=== PATIENT | male | born 1930 | race Caucasian/White ===

== ENCOUNTER 2017-05-23 04:34 | Inpatient (IN) | payer OTHER ==
[2017-05-23] MEDS ORDERED: NS 1,000 ML IV ONE (05:12)
--- NOTE | 2017-05-23 05:21 | EDPHY ---
H & P Stated Complaint: c/o generalized abd cramping x 1 day, states constipated x 3 days Time Seen by Provider: 05/23/17 05:05 HPI/ROS: HPI The patient presents with abdominal pain for the last 3 days which has been intermittent though is getting progressively worse. It is described as a diffuse cramping sensation that occurs in waves. He has been unable to sleep last night because of the pain and comes in this morning. He is constipated with no bowel movement in the last 3 days though he usually moves his bowels daily. He has had nausea and belching as well. He has not had a fever. In 1973 he had a colectomy for diverticulitis.. REVIEW OF SYSTEMS Constitutional: No fever, no chills. Eyes: No discharge. ENT: No sore throat. Cardiovascular: No chest pain, no palpitations. Respiratory: No cough, no shortness of breath. Gastrointestinal: See HPI Genitourinary: No hematuria. Musculoskeletal: No back pain. Skin: No rashes. Neurological: No headache. PMHx: History of colectomy for diverticulitis, prostate cancer PHYSICAL General Appearance: Alert, no distress Eyes: Pupils equal and round no pallor or injection ENT, Mouth: Mucous membranes moist Respiratory: There are no retractions, lungs are clear to auscultation Cardiovascular: Regular rate and rhythm Gastrointestinal: Abdomen is distended with diffuse tenderness to palpation with guarding Neurological: A&O, moves all extremities Skin: Warm and dry, no rashes Musculoskeletal: Neck is supple non tender Extremities: symmetrical, full range of motion Psychiatric: Patient is oriented X 3, there is no agitation Source: Patient Exam Limitations: No limitations - Medical/Surgical History Hx Asthma: No Hx Chronic Respiratory Disease: No Hx Diabetes: No Hx Cardiac Disease: Yes Hx Renal Disease: No Hx Cirrhosis: No Hx Alcoholism: Yes Hx HIV/AIDS: No Hx Splenectomy or Spleen Trauma: No Other PMH: medical Heart block and HTN, diverticulitis, depression, gout, afib , hyperlipidemia. prostate CA. surgery Pacemaker - Social History Smoking Status: Former smoker Constitutional: Initial Vital Signs Temperature (C) 36.3 C 05/23/17 04:50 Heart Rate 62 05/23/17 04:50 Respiratory Rate 16 05/23/17 04:50 Blood Pressure 141/77 H 05/23/17 04:50 O2 Sat (%) 92 05/23/17 04:50 O2 Delivery Mode Room Air Allergies/Adverse Reactions: cephalexin monohydrate [From Keflex] Allergy (Intermediate, Verified 05/23/17 04 :57) inflammed joints Home Medications: Medication Instructions Recorded Aspirin [Aspirin 81mg (OTC)] 81 mg PO DAILY 11/03/12 Citalopram [CeleXA 20 MG] 20 mg PO DAILY 11/03/12 Simvastatin [Zocor 10 mg (RX)] 0 mg PO DAILY18 11/03/12 traZODone [traZODONE 100MG (RX)] 100 mg PO HS 11/03/12 Albuterol [Proventil Inhaler HFA 2 puffs IH Q4 PRN #1 mdi 12/24/12 (*)] Lisinopril [Zestril 40 mg (RX)] 40 mg PO DAILY 12/24/12 Allopurinol [Allopurinol 100 MG 100 mg PO DAILY 06/30/14 (RX)] Dutasteride [Avodart 0.5 MG (*)] 06/30/14 Mesalamine [MESALAMINE] 4 gm RC DAILY 06/30/14 Oxybutynin Chloride Xl [Ditropan 5 mg PO DAILY 06/09/16 Xl 5mg (*)] Tamsulosin HCl [Flomax 0.4 MG (*)] 0.4 mg PO 06/09/16 buPROPion [Wellbutrin 100mg (*)] 100 mg PO TID 06/09/16 levOFLOXACIN [levAQUIN (*)] 750 mg PO DAILY #10 tab 06/09/16 Medical Decision Making - Diagnostics Imaging Results: CT abdomen pelvis with IV contrast demonstrates partial small-bowel obstruction with transition point in the left lower quadrant which could represent ileitis verses an adhesion, small amount of free fluid, discussed with Dr. Guillen of Radiology. Imaging: Discussed imaging studies w/ hot box spotter Radiologist Differential Diagnosis: This is an 87-year-old male with history of diverticulitis, prostate cancer, atrial fibrillation who presents from home with 3 days of crampy abdominal pain associated with constipation. On exam, he is quite tender and distended. Differential diagnosis includes small bowel obstruction, constipation, perforated viscus. In the emergency room, IV line was established and patient was given fluids for presumed volume depletion. Labs were checked and were relatively unremarkable. He was given morphine for pain with good result. CT scan abdomen pelvis with IV contrast demonstrates partial small-bowel obstruction. The case was discussed with Dr. Bridges of General surgery. He requested an 18 Ethiop[place] NG tube be placed and he will see the patient with likely admission for observation. - Data Points Laboratory Results: Laboratory Results 05/23/17 05:24 05/23/17 05:24 05/23/17 05/23/17 05/23/17 05:24 05:24 05:24 WBC 8.11 10^3/uL 10^3/uL (3.80-9.50) RBC 4.94 10^6/uL 10^6/uL (4.40-6.38) Hgb 15.3 g/dL g/dL (13.7-17.5) POC Hgb Hct 45.8 % % (40.0-51.0) POC Hct MCV 92.7 fL fL (81.5-99.8) MCH 31.0 pg pg (27.9-34.1) MCHC 33.4 g/dL g/dL (32.4-36.7) RDW 13.2 % % (11.5-15.2) Plt Count 239 10^3/uL 10^3/uL (150-400) MPV 9.0 fL fL (8.7-11.7) Neut % (Auto) 88.7 % H % (39.3-74.2) Lymph % (Auto) 6.2 % L % (15.0-45.0) [place] % (Auto) 4.6 % % (4.5-13.0) Eos % (Auto) 0.2 % L % (0.6-7.6) Baso % (Auto) 0.1 % L % (0.3-1.7) Nucleat RBC Rel Count 0.0 % % (0.0-0.2) Absolute Neuts (auto) 7.19 10^3/uL H 10^3/uL (1.70-6.50) Absolute Lymphs (auto) 0.50 10^3/uL L 10^3/uL (1.00-3.00) Absolute Monos (auto) 0.37 10^3/uL 10^3/uL (0.30-0.80) Absolute Eos (auto) 0.02 10^3/uL L 10^3/uL (0.03-0.40) Absolute Basos (auto) 0.01 10^3/uL L 10^3/uL (0.02-0.10) Absolute Nucleated RBC 0.00 10^3/uL 10^3/uL (0-0.01) Immature Gran % 0.2 % % (0.0-1.1) Immature Gran # 0.02 10^3/uL 10^3/uL (0.00-0.10) VBG Lactic Acid 1.4 mmol/L mmol/L (0.7-2.1) POC Sodium Sodium 138 mEq/L mEq/L (134-144) POC Potassium Potassium 4.7 mEq/L mEq/L (3.5-5.2) POC Chloride Chloride 102 mEq/L mEq/L (97-110) Carbon Dioxide 24 mEq/l mEq/l (22-31) Anion Gap 12 mEq/L mEq/L (8-16) POC BUN BUN 14 mg/dL mg/dL (7-23) Creatinine 1.0 mg/dL mg/dL (0.7-1.3) POC Creatinine Estimated GFR > 60 Glucose 202 mg/dL H mg/dL (70-100) POC Glucose Calcium 9.6 mg/dL mg/dL (8.5-10.4) Total Bilirubin 1.5 mg/dL H mg/dL (0.1-1.4) Conjugated Bilirubin 0.3 mg/dL mg/dL (0.0-0.5) Unconjugated Bilirubin 1.2 mg/dL H mg/dL (0.0-1.1) AST 19 IU/L IU/L (17-59) ALT 34 IU/L IU/L (21-72) Alkaline Phosphatase 61 IU/L IU/L (38-126) Total Protein 6.8 g/dL g/dL (6.3-8.2) Albumin 4.1 g/dL g/dL (3.5-5.0) Lipase 26.0 IU/L IU/L (23-300) 05/23/17 05:20 WBC RBC Hgb POC Hgb 16.3 gm/dL gm/dL (13.7-17.5) Hct POC Hct 48 % % (40-51) MCV MCH MCHC RDW Plt Count MPV Neut % (Auto) Lymph % (Auto) [place] % (Auto) Eos % (Auto) Baso % (Auto) Nucleat RBC Rel Count Absolute Neuts (auto) Absolute Lymphs (auto) Absolute Monos (auto) Absolute Eos (auto) Absolute Basos (auto) Absolute Nucleated RBC Immature Gran % Immature Gran # VBG Lactic Acid POC Sodium 139 mEq/L mEq/L (134-144) Sodium POC Potassium 4.4 mEq/L mEq/L (3.3-5.0) Potassium POC Chloride 97 mEq/L mEq/L (97-110) Chloride Carbon Dioxide Anion Gap POC BUN 14 mg/dL mg/dL (7-23) BUN Creatinine POC Creatinine 1.1 mg/dL mg/dL (0.7-1.3) Estimated GFR Glucose POC Glucose 205 mg/dL H mg/dL (70-100) Calcium Total Bilirubin Conjugated Bilirubin Unconjugated Bilirubin AST ALT Alkaline Phosphatase Total Protein Albumin Lipase Medications Given: Discontinued Medications Sodium Chloride (Ns) 1,000 mls @ 0 mls/hr IV ONCE ONE; Wide Open PRN Reason: Protocol Stop: 05/23/17 05:13 Last Admin: 05/23/17 05:25 Dose: 1,000 mls Morphine Sulfate (Morphine) 4 mg IVP EDNOW ONE Stop: 05/23/17 05:57 Last Admin: 05/23/17 06:21 Dose: 4 mg Point of Care Test Results: 05/23/17 05:20 POC Sodium 139 POC Potassium 4.4 POC Chloride 97 POC BUN 14 POC Creatinine 1.1 POC Glucose 205 H Departure - Departure Disposition: [facility] Inpatient Acute Clinical Impression: Partial small bowel obstruction Abdominal pain Qualifiers: Abdominal location: generalized Qualified Code(s): R10.84 - Generalized abdominal pain Condition: Fair Referrals: SHERRI CARBAJAL [Primary Care Provider] - As per Instructions
[2017-05-23 05:36] LABS: % IMMATURE GRANULYOCYTES 0.2 % (0.0-1.1); ABSOLUTE IMMATURE GRANULOCYTES 0.02 10^3/uL (0.00-0.10); ADD DIFF? NO; ADD MORPH? NO; ADD SCAN? NO; ATYPICAL LYMPHOCYTE FLAG 0 (0-99); FRAGMENT RBC FLAG 0 (0-99); HEMATOCRIT 45.8 % (40.0-51.0); HEMOGLOBIN 15.3 g/dL (13.7-17.5); LEFT SHIFT FLG 0 (0-99); LIPEMIA HEMOLYSIS FLAG 80 (0-99); MEAN CELL HEMOGLOBIN CONCENTR. 33.4 g/dL (32.4-36.7); MEAN CELL VOLUME 92.7 fL (81.5-99.8); PLATELET CLUMPS FLAG 0 (0-99); PLATELET COUNT 239 10^3/uL (150-400); RED BLOOD CELL COUNT 4.94 10^6/uL (4.40-6.38); RED CELL DISTRIBUTION WIDTH 13.2 % (11.5-15.2)
[2017-05-23] MEDS ORDERED: IOPAMIDOL (ISOVUE-300) 100 ML BTL ONE (05:51)
[2017-05-23 05:55] LABS: ALANINE AMINOTRANSFERASE 34 IU/L (21-72); ALBUMIN 4.1 g/dL (3.5-5.0); ALKALINE PHOSPHATASE 61 IU/L (38-126); ANION GAP 12 mEq/L (8-16); ASPARTATE AMINOTRANSFERASE 19 IU/L (17-59); BILIRUBIN,TOTAL 1.5 mg/dL (0.1-1.4); BILIRUBIN-CONJUGATED 0.3 mg/dL (0.0-0.5); BILIRUBIN-UNCONJUGATED 1.2 mg/dL (0.0-1.1); CALCIUM 9.6 mg/dL (8.5-10.4); CARBON DIOXIDE 24 mEq/l (22-31); CHLORIDE 102 mEq/L (97-110); GLOMERULAR FILTRATION RATE > 60; GLUCOSE 202 mg/dL (70-100); POTASSIUM 4.7 mEq/L (3.5-5.2); SODIUM 138 mEq/L (134-144); TOTAL PROTEIN 6.8 g/dL (6.3-8.2)
[2017-05-23] MEDS ORDERED: HYDROmorphONE/DILAUDID 2 MG/ML INJ IVP PRN (07:52)
--- NOTE | 2017-05-23 08:19 | GCON ---
[f rep st] CONSULTATION DATE OF CONSULTATION: 05/23/2017 REFERRING PHYSICIAN: Pattie Moe MD REASON FOR EVALUATION: Small bowel obstruction. HISTORY OF PRESENT ILLNESS: 87-year-old male, remote history of a partial colectomy in 1973, recurrent diverticulitis presents to the emergency room this morning with 3-day history of diffuse crampy abdominal pain. His last bowel movement was approximately 2-3 days ago. He has not had flatus in this time. He reports nausea without emesis. He has had no prior obstructive concerns. He denies fevers or chills. PAST MEDICAL HISTORY: Heart block, hypertension, gout, atrial fibrillation, prostate cancer. PAST SURGICAL HISTORY: Pacemaker placement, partial colectomy, radiation therapy for prostate cancer. MEDICATIONS: Bupropion, clonazepam, dexamethasone, tamsulosin, Eliquis, allopurinol, clotrimazole, fluticasone, hydrochlorothiazide, simvastatin, albuterol. ALLERGIES: No known drug allergies. SOCIAL HISTORY: No alcohol. No tobacco. 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 FAMILY HISTORY: Noncontributory. REVIEW OF SYSTEMS: Notable for current GI complaints. Otherwise negative 10- point review. PHYSICAL EXAMINATION: VITAL SIGNS: Temperature 36, blood pressure 130/65, pulse 73, respirations 18. GENERAL: Patient is alert, appropriate, comfortable. HEENT: Anicteric. NECK: No cervical or supraclavicular lymphadenopathy. HEART: Irregular. LUNGS: Clear. ABDOMEN: Soft, distended , minimal tenderness. Well-healed long midline laparotomy without ventral hernias. EXTREMITIES: Unremarkable. NEUROLOGIC: Unremarkable. LABORATORY: White count 8, hemoglobin 15, platelets of 240. Electrolytes within reference range. Glucose 200. Total bilirubin 1.5. Unconjugated fraction 1.2. IMAGING: CT of the abdomen and pelvis, images were directly reviewed on PAX, markedly dilated proximal small bowel with transition zone in the left lower quadrant. No free fluid. No free air. No significant bowel wall thickening. IMPRESSION: Partial small bowel obstruction. PLAN: 1. Nasogastric tube has been placed. 2. Continue IV fluids and bowel rest. 3. If no clinical resolution within 72 hours or clinical deterioration in the interim time, consideration for a laparoscopic lysis of adhesions will be entertained at that time. 4. Eliquis will be withheld. The patient will be maintained on Lovenox temporarily. /[id number]/MODL MTDD
[2017-05-23] MEDS: D5W 1/2 NS W/ 20 KCl/L 1,000 ML IV SCH ×2 (09:01→16:35)
[2017-05-23] MEDS: ENOXAPARIN 60 MG/0.6 ML SYR SC SCH ×2 (09:30→20:42)
[2017-05-23 09:57] LABS: COLOR AMBER; LEUKOCYTE ESTERASE,URINE NEGATIVE (NEGATIVE); NITRITE,URINE NEGATIVE (NEGATIVE)
--- NOTE | 2017-05-23 10:17 | CPEKG ---
Heart Rate: 62 RR Interval: 968 P-R Interval: 169 QRSD Interval: 160 QT Interval: 464 QTC Interval: 472 P [place]: 0 QRS [place]: -88 T Wave [place]: 79 EKG Severity - ABNORMAL ECG - EKG Impression: ATRIAL-VENTRICULAR DUAL-PACED COMPLEXES Electronically Signed By: Eric Tidwell 23-May-2017 16:39:42
[2017-05-23] MEDS: clonazePAM 0.5 MG TAB PO SCH ×2 (13:03→20:28)
[2017-05-23] MEDS: HYDROmorphONE/DILAUDID 1 MG/ML SYR IVP PRN ×2 (15:22→20:41)
[2017-05-23] MEDS: traZODone 100 MG TAB PO SCH ×2 (20:56→22:43)
[2017-05-24] MEDS: D5W 1/2 NS W/ 20 KCl/L 1,000 ML IV SCH ×2 (00:52→09:38)
[2017-05-24] MEDS: ONDANSETRON 4 MG/2 ML VIAL IVP PRN ×2 (00:52→04:52)
[2017-05-24] MEDS: HYDROmorphONE/DILAUDID 1 MG/ML SYR IVP PRN ×4 (04:51→18:43)
[2017-05-24 06:25] LABS: ANION GAP 8 mEq/L (8-16); CALCIUM 8.5 mg/dL (8.5-10.4); CARBON DIOXIDE 25 mEq/l (22-31); CHLORIDE 105 mEq/L (97-110); CREATININE 0.8 mg/dL (0.7-1.3); GLOMERULAR FILTRATION RATE > 60; GLUCOSE 139 mg/dL (70-100); POTASSIUM 4.7 mEq/L (3.5-5.2); SODIUM 138 mEq/L (134-144)
--- NOTE | 2017-05-24 07:44 | SOAPPROG ---
SOAP Progress Note Assessment/Plan: Assessment:no new issues. crampy pain. no flatus. avss. comfortable. abd dist. NG gastric. kub persist psbo. cont ng suction today. if no improvement by tomorrow, will need lap mone. Plan: 05/24/17 07:43 Objective: Vital Signs Temp Pulse Resp BP Pulse Ox 37.1 C 66 16 129/62 H 94 05/24/17 07:19 05/24/17 07:19 05/24/17 07:19 05/24/17 07:19 05/24/17 07:19 Laboratory Results 05/24/17 05:46 05/23/17 05/24/17 05/25/17 05:59 05:59 05:59 Intake Total 2710 Output Total 1650 Balance 1060 ICD10 Worksheet Patient Problems: Problems Problem Status Onset Abdominal pain Acute Partial small bowel obstruction Acute
[2017-05-24] MEDS: ENOXAPARIN 60 MG/0.6 ML SYR SC SCH ×2 (09:21→21:10)
[2017-05-24] MEDS: clonazePAM 0.5 MG TAB PO SCH ×3 (09:25→18:28)
[2017-05-24] MEDS: TAMSULOSIN HCL 0.4 MG CAP PO SCH (09:27)
[2017-05-24] MEDS: LISINOPRIL 40 MG TAB PO SCH (09:27)
[2017-05-24] MEDS: traZODone 100 MG TAB PO SCH (21:10)
[2017-05-25] MEDS: HYDROmorphONE/DILAUDID 1 MG/ML SYR IVP PRN ×5 (01:25→22:30)
[2017-05-25] MEDS: D5W 1/2 NS W/ 20 KCl/L 1,000 ML IV SCH ×3 (01:25→19:53)
[2017-05-25] MEDS: TAMSULOSIN HCL 0.4 MG CAP PO SCH (08:52)
[2017-05-25] MEDS: LISINOPRIL 40 MG TAB PO SCH (08:52)
[2017-05-25] MEDS: clonazePAM 0.5 MG TAB PO SCH ×3 (08:52→19:54)
[2017-05-25] MEDS: ENOXAPARIN 60 MG/0.6 ML SYR SC SCH ×2 (08:53→19:53)
[2017-05-25] MEDS ORDERED: LIDOCAINE 1% 300 MG/30 ML SDV ONE (10:54)
[2017-05-25] MEDS ORDERED: BUPIVACAINE 0.5% 30 ML SDV ONE (10:54)
[2017-05-25] MEDS ORDERED: LR 1,000 ML IV ONE (12:38)
--- NOTE | 2017-05-25 13:21 | PDANEPAE ---
ANE History of Present Illness sbo ANE Past Medical History Past Medical History: 3rd degree heart block - Cardiovascular History Hx Hypertension: No Hx Arrhythmias: Yes - Pulmonary History Hx Oxygen in Use at Home: No O2 in Use at Home (L/minute): cpap Hx Sleep Apnea: Yes Sleep Apnea Screening Result - Last Documented: Positive - Endocrine History Hx Diabetes: No - Cancer History Hx Cancer: Yes Cancer History Comment: prostate ca-treated - Chronic Pain History Chronic Pain: No ANE Review of Systems - Exercise capacity Exercise capacity: <4 METS - Systems Muscolosketal: Reports: gout - Pacemaker Pacemaker Type: Permanent Pacer/Defib (pacer for complete HB) Pacemaker Market Reporter: Medtronic Pacemaker Model: [id number] ANE Patient History - Allergies Allergies/Adverse Reactions: cephalexin monohydrate [From Keflex] Allergy (Intermediate, Verified 05/23/17 04 :57) inflammed joints - Home Medications Home medications: home medication list seen and reviewed Home Medications: traZODone [traZODONE 100MG (RX)] 200 mg PO HS 11/03/12 [Last Taken 05/22/17] Dutasteride [Avodart 0.5 MG (*)] 0.5 mg PO HS 06/30/14 [Last Taken 05/22/17] Tamsulosin HCl [Flomax 0.4 MG (*)] 0.4 mg PO DAILY 06/09/16 [Last Taken 05/22/17 ] buPROPion [Wellbutrin 100mg (*)] 100 mg PO TID@08,,17 06/09/16 [Last Taken 03/05 17:00] Allopurinol [Allopurinol 100 MG (*)] 100 mg PO DAILY 05/23/17 [Last Taken Unknown] Apixaban [Eliquis] 5 mg PO BID 05/23/17 [Last Taken Unknown] Asacol Ec 400mg Cap 400 mg PO TID PRN 05/23/17 [Last Taken Unknown] Clotrimazole 1% [Lotrimin 1%] 1 sultana TP BID 05/23/17 [Last Taken Unknown] Fluticasone Nasal [Flonase Nasal [place] (RX)] 2 sprays NASAL DAILY 05/23/17 [ Last Taken Unknown] Mirabegron [Myrbetriq] 25 mg PO DAILY 05/23/17 [Last Taken Unknown] Psyllium Husk (with Sugar) [Metamucil Packet] 1 each PO DAILY 05/23/17 [Last Taken Unknown] Simvastatin [Zocor] 40 mg PO HS 05/23/17 [Last Taken 05/22/17] Sodium Cl Nasal [Lynn [place] (*)] 1 spray NS Q2HRS 05/23/17 [Last Taken Unknown] Vanicream [Vanicream (*)] 1 sultana TP DAILY 05/23/17 [Last Taken Unknown] clonazePAM [Klonopin (*)] 0.5 mg PO TID@08,,05/23/17 [Last Taken 05/22/17 17:00] - NPO status NPO Since - Liquids (Date): 05/25/17 NPO Since - Liquids (Time): 10:00 NPO Since - Solids (Date): 05/23/17 NPO Since - Solids (Time): 09:00 - Anes Hx Anes Hx: no prior problems - Smoking Hx Smoking Status: Former smoker Marijuana use: No - Alcohol Use Alcohol Use: Sober - Family Anes Hx Family Anes Hx: none ANE Labs/Vital Signs - Labs Result Diagrams: 05/23/17 05:24 05/24/17 05:46 - Vital Signs Blood Pressure: 153/73 Heart Rate: 83 Respiratory Rate: 12 O2 Sat (%): 92 Height: 182.88 cm Weight: 96.8 kg ANE Physical Exam - Airway Neck exam: decreased ROM Mallampati Score: Class 2 Mouth exam: poor dentition - Pulmonary Pulmonary: inspiratory crackles - Cardiovascular Cardiovascular: regular rate and rhythym - ASA Status ASA Status: III ANE Anesthesia Plan Anesthesia Plan: general endotracheal anesthesia (pacer check pending then will start)
--- NOTE | 2017-05-25 13:42 | SOAPPROG ---
SOAP Progress Note Assessment/Plan: Assessment/Plan: No bowel activity AXR worsening To OR for laparoscopic lysis of adhesions possible laparotomy see consent 05/25/17 13:41 Objective: Vital Signs Temp Pulse Resp BP Pulse Ox 37.0 C 83 12 153/73 H 92 05/25/17 12:50 05/25/17 13:22 05/25/17 13:22 05/25/17 13:22 05/25/17 13:22 05/24/17 05/25/17 05/26/17 05:59 05:59 05:59 Output Total 775 50 Balance -775 -50 ICD10 Worksheet Patient Problems: Problems Problem Status Onset Abdominal pain Acute Partial small bowel obstruction Acute
[2017-05-25] MEDS ORDERED: ROCURONIUM 50 MG/5 ML VIAL ONE ×2 (13:53→15:45)
[2017-05-25] MEDS ORDERED: fentaNYL 100 MCG/2 ML INJ ONE ×3 (13:53→17:01)
[2017-05-25] MEDS ORDERED: PROPOFOL/EMULSION 500 MG/50 ML BOTTLE IV ONE ×2 (13:53→15:18)
[2017-05-25] MEDS ORDERED: ONDANSETRON 4 MG/2 ML VIAL ONE (13:53)
[2017-05-25] MEDS ORDERED: DEXAMETHASONE 4 MG/ML VIAL ONE ×2 (13:53)
[2017-05-25] MEDS ORDERED: LIDOCAINE 2% 5 ML SDV ONE (13:55)
[2017-05-25] MEDS ORDERED: SUGAMMADEX SODIUM 200 MG/2 ML VIAL IVP ONE (16:14)
--- NOTE | 2017-05-25 16:20 | POSTOPPROG ---
Post Op Note Date of Operation: 05/25/17 Surgeon: Nate Bonilla Claims Configuration Analyst: none Anesthesiologist: Danny Anesthesia: GET(General Endotracheal) Pre-op Diagnosis: sbo Post-op Diagnosis: same Procedure: lap lysis of adhesions, repair of enterotomy Inf/Abcess present in the surg proc area at time of surgery?: Yes Depth: Organ Space EBL: Minimal Complications: none Specimen(s): none
[2017-05-25] MEDS ORDERED: NALOXONE HCL 0.4 MG/ML INJ IVP PRN (16:32)
[2017-05-25] MEDS ORDERED: HYDROCODONE/APAP 5/325 TAB PO PRN (16:32)
[2017-05-25] MEDS ORDERED: LR 500 ML IV PRN (16:32)
[2017-05-25] MEDS ORDERED: ONDANSETRON 4 MG/2 ML VIAL IVP PRN (16:32)
[2017-05-25] MEDS ORDERED: fentaNYL 100 MCG/2 ML INJ IVP PRN (16:32)
[2017-05-25] MEDS ORDERED: METOCLOPRAMIDE 10 MG/2 ML VIAL IVP PRN (16:32)
[2017-05-25] MEDS ORDERED: OXYCODONE/APAP 5/325 TAB PO PRN (16:32)
[2017-05-25] MEDS ORDERED: PROMETHAZINE HCL 25 MG/ML INJ IVP PRN (16:32)
[2017-05-25] MEDS ORDERED: LABETALOL HCL 50 MG/10 ML SYR IVP PRN (16:32)
[2017-05-25] MEDS ORDERED: MEPERIDINE 25 MG/ML SYR IVP PRN (16:32)
[2017-05-25] MEDS ORDERED: ACETAMINOPHEN 500 MG TAB PO PRN (16:32)
[2017-05-25] MEDS ORDERED: DEXAMETHASONE 4 MG/ML VIAL IVP PRN (16:32)
--- NOTE | 2017-05-25 16:32 | POSTANESTH ---
Post Anesthetic Evaluation Cardiovascular Status: Normal, Stable Respiratory Status: Similar to Pre-op Cond., Tx Decrease in SpO2 Level of Consciousness/Mental Status: Can Participate in Eval, Moderately Sleepy Pain Control: Inadeq, Add Tx Required Nausea/Vomiting Control: Adequate, Prn Tx Ordered Complications Possibly Related to Anesthesia: None Noted
[2017-05-25] MEDS: fentaNYL 100 MCG/2 ML INJ IVP PRN ×4 (16:35→17:10)
[2017-05-25] MEDS ORDERED: DIAZEPAM 10 MG/2 ML SYR ONE (17:37)
[2017-05-25] MEDS ORDERED: DIAZEPAM 10 MG/2 ML SYR IVP ONE (17:45)
[2017-05-25] MEDS: ONDANSETRON 4 MG/2 ML VIAL IVP PRN (19:53)
[2017-05-25] MEDS: traZODone 100 MG TAB PO SCH (21:32)
[2017-05-26] MEDS: HYDROmorphONE/DILAUDID 1 MG/ML SYR IVP PRN ×5 (01:36→22:11)
[2017-05-26 05:59] LABS: % IMMATURE GRANULYOCYTES 0.4 % (0.0-1.1); ABSOLUTE IMMATURE GRANULOCYTES 0.02 10^3/uL (0.00-0.10); ABSOLUTE NRBC COUNT 0.02 10^3/uL (0-0.01); ADD DIFF? NO; ADD MORPH? NO; ADD SCAN? YES; ATYPICAL LYMPHOCYTE FLAG 0 (0-99); FRAGMENT RBC FLAG 0 (0-99); HEMATOCRIT 45.4 % (40.0-51.0); HEMOGLOBIN 14.8 g/dL (13.7-17.5); LIPEMIA HEMOLYSIS FLAG 80 (0-99); MEAN CELL HEMOGLOBIN 31.2 pg (27.9-34.1); MEAN CELL HEMOGLOBIN CONCENTR. 32.6 g/dL (32.4-36.7); MEAN CELL VOLUME 95.8 fL (81.5-99.8); MEAN PLATELET VOLUME 9.5 fL (8.7-11.7); NRBC-AUTO% 0.4 % (0.0-0.2); PLATELET CLUMPS FLAG 0 (0-99); PLATELET COUNT 232 10^3/uL (150-400); RED BLOOD CELL COUNT 4.74 10^6/uL (4.40-6.38); RED CELL DISTRIBUTION WIDTH 13.4 % (11.5-15.2)
[2017-05-26 06:01] LABS: ANION GAP 13 mEq/L (8-16); CALCIUM 8.2 mg/dL (8.5-10.4); CARBON DIOXIDE 18 mEq/l (22-31); CHLORIDE 108 mEq/L (97-110); CREATININE 2.3 mg/dL (0.7-1.3); GLOMERULAR FILTRATION RATE 27; GLUCOSE 131 mg/dL (70-100); POTASSIUM 4.6 mEq/L (3.5-5.2); SODIUM 139 mEq/L (134-144)
[2017-05-26 06:03] LABS: LEFT SHIFT FLG 300 (0-99)
[2017-05-26 06:25] LABS: SCAN POSITIVE
[2017-05-26] MEDS ORDERED: NS 500 ML IV ONE (06:47)
[2017-05-26 06:50] LABS: ECHINOCYTES 1+; PLATELET ESTIMATE ADEQUATE (ADEQ); POLYCHROMASIA 1+; TOXIC VACUOLIZATION PRESENT
[2017-05-26] MEDS ORDERED: ALBUTEROL 3 ML DEYVIAL IH PRN (06:51)
--- NOTE | 2017-05-26 06:56 | SOAPPROG ---
SOAP Progress Note Assessment/Plan: Assessment/Plan: Hypoxia with new requirement 15 L NRB No chest pain Abd pain better CXR poor inspiratory effort WBC 5 Cr 2.3 300 ml urine output o/n 500ml bolus Resp therapy with nebs Monitor closely low threshold to move to sd/icu 05/25/17 13:41 05/26/17 06:53 Objective: Vital Signs Temp Pulse Resp BP Pulse Ox 37.2 C 63 154 H 96/45 L 92 05/26/17 04:00 05/26/17 04:00 05/26/17 04:00 05/26/17 04:00 05/26/17 04:00 Laboratory Results 05/26/17 05:30 05/26/17 05:30 05/25/17 05/26/17 05/27/17 05:59 05:59 05:59 Intake Total 1250 Output Total 775 350 Balance -775 900 ICD10 Worksheet Patient Problems: Problems Problem Status Onset Abdominal pain Acute Partial small bowel obstruction Acute
[2017-05-26 08:00] LABS: TROPONIN I 0.261 ng/mL (0-0.034)
[2017-05-26] MEDS: TAMSULOSIN HCL 0.4 MG CAP PO SCH (08:39)
[2017-05-26] MEDS: ENOXAPARIN 60 MG/0.6 ML SYR SC SCH (08:40)
[2017-05-26] MEDS: clonazePAM 0.5 MG TAB PO SCH ×3 (08:40→17:05)
--- NOTE | 2017-05-26 08:41 | SOAPPROG ---
SOAP Progress Note Assessment/Plan: Assessment/Plan: Hypoxia with new requirement 15 L NRB Confused Troponin 0.261 No chest pain Abd pain better CXR poor inspiratory effort WBC 5 Cr 2.3 300 ml urine output o/n Bladder scan 30 ml Rhonchorus RRR Abd soft NT No edema 500ml bolus given will repeat in 2 hr and repeat Cr in 6 hr Resp therapy with nebs Monitor closely low threshold to move to sd/icu 05/26/17 08:37 Objective: Vital Signs Temp Pulse Resp BP Pulse Ox 37.2 C 62 31 H 104/49 L 96 05/26/17 04:00 05/26/17 08:00 05/26/17 08:00 05/26/17 08:00 05/26/17 08:00 Laboratory Results 05/26/17 05:30 05/26/17 05:30 05/25/17 05/26/17 05/27/17 05:59 05:59 05:59 Intake Total 1250 Output Total 775 350 Balance -775 900 ICD10 Worksheet Patient Problems: Problems Problem Status Onset Abdominal pain Acute Partial small bowel obstruction Acute
--- NOTE | 2017-05-26 09:08 | CPEKG ---
Heart Rate: 62 RR Interval: 968 QRSD Interval: 140 QT Interval: 448 QTC Interval: 455 QRS Pace: -84 T Wave Pace: 70 EKG Severity - ABNORMAL ECG - EKG Impression: VENTRICULAR-PACED RHYTHM Electronically Signed By: Eric Tidwell 27-May-2017 23:02:21
[2017-05-26] MEDS ORDERED: NS 500 ML IV SCH (10:00)
[2017-05-26] MEDS: LISINOPRIL 40 MG TAB PO SCH (10:56)
[2017-05-26] MEDS ORDERED: ALBUMIN 25% 100 ML SOLN IV ONE ×2 (11:50→14:13)
[2017-05-26] MEDS ORDERED: ALTEPLASE 2 MG VIAL IVP PRN (11:53)
[2017-05-26] MEDS ORDERED: ALBUMIN 25% 100 ML IV ONE ×2 (11:53→15:00)
--- NOTE | 2017-05-26 12:54 | GCON ---
[f rep st] CONSULTATION CARDIOLOGY CONSULT DATE OF CONSULTATION: 05/26/2017 PRIMARY CARE DOCTOR: Unknown. PRIMARY ENTERPRISE SYSTEMS ENGINEER: ifeanyi Barnett at the [employer]. CHIEF COMPLAINT: Hypotension and positive troponin. HISTORY OF PRESENT ILLNESS: We were asked by Dr. Bonilla to visit with the patient. 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 He has a history of pacemaker for complete heart block, atrial fibrillation, for which he is on Eliquis as an outpatient, hypertension, and dyslipidemia. Per the patient and his family, he has no history of obstructive coronary disease and has never had an ID or stent placement. He was admitted on May 23 with abdominal pain. He was found to have a partial SBO that did not resp ond to medical management. Therefore, he was taken to the operating room on May [address] Bonilla a nd had lysis of adhesions and enterotomy repair. Postoperatively, he was persistently hypoxic and was transferred to PCU. This morning, he was found to be in acute renal failure with a creatinine of 2.3, up from 1.0 prior to surgery. He has also b een hypotensive and has been receiving IV fluids. Troponin is 0.2. He has been transferred to the ICU. Upon my evaluation, he reports no chest discomfort, but he does report ongoing abdominal pain. He does not say that he is dyspneic. Prior to his abdominal illnes s, he was not having problems with chest pain or dyspnea. His overall activity is limited by neurop athic problems in his feet, but he has not had exertional chest pain. ALLERGIES: Cephalexin. REVIEW OF SYSTEMS: A full 10-point review of systems is not performed as the patient is acutely ill . PAST MEDICAL HISTORY: 1. Pacemaker for complete heart block. 2. Atrial fibrillation. 3. Hypertension. 4. Dyslipidemia. 5. Prostate cancer, with history radiation. 6. BPH. 7. History of diverticulitis. 8. Gout. PAST SURGICAL HISTORY: Partial colectomy in 1973. OUTPATIENT MEDICATIONS: Allopurinol, Eliquis, Asacol, Wellbutrin, Klonopin, Lotrimin cream, dutaste ride, Flonase, Myrbetriq, psyllium, simvastatin, tamsulosin, Vanicream, trazodone. SOCIAL HISTORY: The patient has involved family at the bedside. He does not smoke cigarettes or dr ink significant amounts of alcohol. 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 FAMILY HISTORY: Not applicable to the current case. PHYSICAL EXAM: VITAL SIGNS: Blood pressure 77/47, heart rate 57. Respiratory rate is 28. Oxygen saturation 94% on 15 L OxyMask. He is afebrile. GENERAL: Slightly ill-appearing older male in no acute distress. He is mentating and answering questions appropriately. HEENT: Sclerae are clear a nd free of jaundice. Mucous membranes are dry. Normocephalic, atraumatic. CARDIOVASCULAR: JVP is less than 10. Carotids equal and 2+ throughout, without bruit. Regular rate and rhythm, without mu rmur, rub, or gallop. LUNGS: Poor inspiratory effort, occasional rhonchi. Occasional wheeze. No rales. ABDOMEN: Distended, with decreased bowel sounds. He is diffusely tender. He has 2 small l aparotomy incisions. There is redness extending from the left lower quadrant incision to his left f lank. EXTREMITIES: Warm and well perfused, without cyanosis, clubbing, or edema. NEURO: Alert an d oriented x3, without gross focal neurologic deficits. EKG shows underlying atrial fibrillation with ventricular pacing. Echocardiogram is pending. Chest x-ray reviewed by me: Subsegmental atelectasis. Tracheal deviation to the right. LABORATORY DATA: White count 5.69, hematocrit 45, platelets 232. He has a left shift. Sodium 139, potassium 4.6, chloride 108, bicarb 18, BUN 23, creatinine 2.3 from 0.8 on May 24, glucose 131, tro ponin 0.261, total bilirubin 1.5, conjugated bilirubin 0.3, unconjugated 1.2. AST, ALT, alkaline ph osphatase normal preoperatively. Lipase was normal preoperatively. ASSESSMENT AND PLAN: An 87-year-old male whose cardiac history includes atrial fibrillation and per manent pacemaker. He does not have a known history of coronary disease or heart failure. He is now postop day 1, status post lysis of adhesions for small-bowel obstruction. His course has been comp licated by hypoxia, hypotension, acute renal failure, and minimally elevated troponin. 1. Positive troponin: His current clinical picture is not consistent with acute coronary syndrome as a primary etiology for his hemodynamic instability. He is not having chest pain. He appears dry on exam. I think his troponin is likely demand ischemia. Agree with cycling troponin, fluid resus citation. Will review echocardiogram. No indication for urgent cardiac catheterization. Enoxapari n appears to be on hold. Will order aspirin. 2. Hypotension: This is likely volume depletion. He is being volume resuscitated and will get alb umin. We will make sure that he has not been on steroids at home. Sepsis is also on the differenti al. He is being followed carefully in the ICU. At this point, he is currently not on antibiotics. If pressors are required, consider dopamine. will be performed. 3. Hypoxia: Lung exam and chest x-ray are not significantly abnormal. This may be a combination o f poor inspiratory effort and atelectasis related to his abdominal process. Pulmonary embolism is o n the differential, but he was anticoagulated preoperatively initially with Eliquis and then with Lo venox. Does not appear to have pneumonia. May ultimately require intubation. Followed by Dr. Thalia agustin. Check BNP. 4. Atrial fibrillation: He has complete heart block and therefore is ventricularly paced. Restart anticoagulation when deemed feasible from a postsurgical standpoint. 5. Obtain records from [facility]. Thank you for allowing us to participate in the patient's care. Greater than 30 minutes was spent i n direct patient contact, discussion with other physicians, and discussion with the patient's family . /[id number]/MODL
[2017-05-26] MEDS ORDERED: NOREPINEPHRINE/NS 500 ML IV SCH (14:00)
[2017-05-26 14:38] LABS: ANION GAP 12 mEq/L (8-16); CALCIUM 7.5 mg/dL (8.5-10.4); CARBON DIOXIDE 20 mEq/l (22-31); CHLORIDE 107 mEq/L (97-110); CREATININE 3.1 mg/dL (0.7-1.3); GLOMERULAR FILTRATION RATE 19; GLUCOSE 132 mg/dL (70-100); POTASSIUM 5.3 mEq/L (3.5-5.2); SODIUM 139 mEq/L (134-144)
[2017-05-26 14:50] LABS: TROPONIN I 0.396 ng/mL (0-0.034)
[2017-05-26] MEDS: VASOPRESSIN/DEXTROSE 250 ML IV SCH ×2 (14:55→23:18)
[2017-05-26 15:11] LABS: BASE EXCESS -6.8 mEq/L (-2.5-2.5); BICARBONATE 18 mEq/L (22-26); MEASURED OXYGEN SATURATION 99 % (92-95); PCO2 34 mmHg (34-38); PO2 135 mmHg (65-75); TCO2 19 mEq/L (23-27)
[2017-05-26] MEDS: ASPIRIN 81 MG CHEWABLE TAB PO SCH (15:17)
[2017-05-26] MEDS: buPROPion 100 MG TAB PO SCH ×2 (15:17→17:05)
[2017-05-26 15:23] LABS: ATYPICAL LYMPHOCYTE FLAG 0 (0-99); FRAGMENT RBC FLAG 0 (0-99); HEMATOCRIT 35.3 % (40.0-51.0); HEMOGLOBIN 11.3 g/dL (13.7-17.5); LIPEMIA HEMOLYSIS FLAG 80 (0-99); MEAN CELL HEMOGLOBIN 31.6 pg (27.9-34.1); MEAN CELL VOLUME 98.6 fL (81.5-99.8); MEAN PLATELET VOLUME 9.6 fL (8.7-11.7); PLATELET CLUMPS FLAG 0 (0-99); PLATELET COUNT 192 10^3/uL (150-400); RED BLOOD CELL COUNT 3.58 10^6/uL (4.40-6.38); RED CELL DISTRIBUTION WIDTH 13.3 % (11.5-15.2)
[2017-05-26 15:24] LABS: LEFT SHIFT FLG 300 (0-99)
[2017-05-26 15:27] LABS: ADD DIFF? YES; ADD SCAN? NO
[2017-05-26] MEDS ORDERED: VANCOMYCIN 1.5 GM in D5W 250 ML IV ONE (15:30)
[2017-05-26] MEDS: SODIUM BICARBONATE 150 MEQ in D5W 1,000 ML IV SCH (15:44)
[2017-05-26 15:48] LABS: PLATELET ESTIMATE ADEQUATE (ADEQ)
--- NOTE | 2017-05-26 15:55 | GCON ---
[f rep st] CONSULTATION CRITICAL CARE CONSULT DATE OF CONSULTATION: 05/26/2017 HISTORY OF PRESENT ILLNESS: This patient is an 87-year-old male with multiple medical problems, who presented on the with abdominal pain. A CT scan showed a small-bowel obstruction, and he under went laparoscopic lysis of adhesions. The surgery itself was unremarkable, but he has subsequently developed hypotension for uncertain reasons. The patient denies any chest pain or shortness of james th. He has had no cough or palpitations, though he does have an extensive cardiac history. There w as no excess blood loss during the procedure, and his counts have been stable, except for his hypote nsion since that time. REVIEW OF SYSTEMS: Otherwise negative. PAST MEDICAL HISTORY: Includes PTSD, depression, anxiety, remote frostbite, peripheral neuropathy, complete heart block requiring a permanent pacer, atrial fibrillation, hyperlipidemia, hypothyroidis m, mediastinal goiter, obstructive sleep apnea, degenerative joint disease, remote history of alcoholism, prostate cancer status post cryosurgery on several occasions in the past. SURGICAL HISTORY: Includes hemicolectomy, permanent pacer placement, tonsillectomy, hernia repair, thyroid biopsy, and his recent surgery. FAMILY HISTORY: Includes diabetes. SOCIAL HISTORY: Includes remote smoking. No alcohol or IV drug use. CURRENT MEDICATIONS: Include Proventil, aspirin, Wellbutrin, Klonopin, Lovenox, Dilaudid, Zestril, Zofran, Flomax, trazodone. PHYSICAL EXAM: VITAL SIGNS: He was afebrile, but his heart rate was only 62, with a blood pressure 77/47, respirations of 28, but oxygen saturation 95% on 15 liter OxyMask. GENERAL: He was awake a nd alert, and answered questions appropriately, though, was not terribly verbose. HEENT: Pupils ar e equally round, reactive to light. Nonicteric and noninjected. Mucous membranes are moist without erythema or exudate. NECK: Supple without adenopathy or jugular vein distention. LUNGS: Breath sounds were clear to auscultation bilaterally, without wheezes, rubs or rales. HEART: Regular rate and rhythm without murmurs, rubs, gallops. ABDOMEN: Mildly tender, with areas of diffuse erythema particularly over to the left flank side. His incisions were somewhat erythematous, without obviou s discharge. EXTREMITIES: Show no clubbing, cyanosis, or edema. NEUROLOGICAL: Nonfocal. OBJECTIVE DATA: Includes a white count of 5.69, hematocrit of 45, platelets of 232. His most recen t labs show sodium 139, potassium 5.3, chloride 107, bicarb 20, BUN 30, creatinine 3.1, glucose 132. Troponin was 0.26, and now is 0.39. A BNP was 17,900. Urinalysis showed a high specific gravity, with ketones, but was otherwise negative. Chest x-ray showed no infiltrates or effusions. An EKG was unremarkable, as was an echocardiogram. ASSESSMENT/PLAN: 1. Hypotension of uncertain etiology. While the troponin is rising in the face of his renal failur e, the normal echo and EKG are fairly unremarkable, and seems an unlikely source. It may be that hi s pacemaker rate is too low and needs to be increased, but I will defer to Dr. Madrid from Cardiology for that assessment. 2. Possibility would be sepsis, although, he is afebrile with normal white count. We will recheck a CBC now, but I think in the short term we should give him vancomycin and Zosyn, as well as check a lactate and check some blood cultures. We could consider a CT scan if this persists. 3. Possibility for his hypotension is hypovolemia. He has gotten several liters of fluid, as well as albumin boluses, was done and he was not responsive, showing that he is probably adequ ately fluid resuscitated. Adrenal insufficiency seems highly unlikely in this patient, who has not been on chronic steroids and is not known to have a current adrenal hemorrhage. Spinal shock is als o highly unlikely given the history. 4. In either case, I think supporting him with Levophed and vasopressin at this time and checking t he other studies as mentioned above, would certainly be worth our while. 5. Hypoxemia. This is probably related to poor flow, an arterial blood gas is pending at this time , as well as a lactate. He did not have CPAP last night, though his serum bicarb is really not that low. In any case, the x-ray does not support pneumonia, aspiration or pulmonary edema at this time . He has previously been anticoagulated, including in the postoperative period, so I think that pul monary embolism is highly unlikely. 6. Acute kidney injury. This is likely due to his hypotension. We will start a bicarb drip right now and place a Webber catheter, and look at his urine electrolytes. He may need a renal consult in the very near future. I suspect a bicarb drip. We will address the slightly elevated potassium. A total of about 75 minutes of critical care time was required for this patient. /[id number]/MODL
[2017-05-26] MEDS: PIPERACILLIN/TAZO 2.25 GM/DEX 50 ML IV SCH ×3 (17:02→23:59)
[2017-05-26] MEDS ORDERED: PIPERACILLIN/TAZO 3.375 GM/DEX 50 ML IV SCH (18:00)
[2017-05-26] MEDS ORDERED: buPROPion SR 100 MG TAB PO SCH (21:00)
[2017-05-26] MEDS: traZODone 100 MG TAB PO SCH (21:02)
[2017-05-26 21:39] LABS: COLOR AMBER; LEUKOCYTE ESTERASE,URINE NEGATIVE (NEGATIVE); NITRITE,URINE NEGATIVE (NEGATIVE)
[2017-05-26 21:41] LABS: AMORPHOUS PRESENT /hpf (NONE-1+); BACTERIA 1+ /hpf (NONE SEEN); HYALINE CASTS 25-50 /lpf (0-1); MUCUS TRACE /lpf (NONE-1+)
[2017-05-26] MEDS: NOREPINEPHRINE BITARTRATE 4 MG in NS 500 ML IV SCH (23:18)
[2017-05-27] MEDS: HYDROmorphONE/DILAUDID 1 MG/ML SYR IVP PRN ×2 (01:11→05:31)
[2017-05-27] MEDS: PIPERACILLIN/TAZO 2.25 GM/DEX 50 ML IV SCH ×4 (05:28→23:13)
[2017-05-27] MEDS: NOREPINEPHRINE BITARTRATE 4 MG in NS 500 ML IV SCH ×3 (05:42→18:31)
[2017-05-27 06:08] LABS: BASE EXCESS -3.1 mEq/L (-2.5-2.5); BICARBONATE 21 mEq/L (22-26); MEASURED OXYGEN SATURATION 98 % (92-95); PCO2 36 mmHg (34-38); PO2 96 mmHg (65-75); TCO2 22 mEq/L (23-27)
[2017-05-27 06:13] LABS: ALANINE AMINOTRANSFERASE 29 IU/L (21-72); ALBUMIN 2.2 g/dL (3.5-5.0); ALKALINE PHOSPHATASE 26 IU/L (38-126); ANION GAP 11 mEq/L (8-16); ASPARTATE AMINOTRANSFERASE 25 IU/L (17-59); BILIRUBIN,TOTAL 3.7 mg/dL (0.1-1.4); CARBON DIOXIDE 28 mEq/l (22-31); CHLORIDE 97 mEq/L (97-110); CREATININE 2.6 mg/dL (0.7-1.3); GLOMERULAR FILTRATION RATE 23; GLUCOSE 463 mg/dL (70-100); POTASSIUM 4.4 mEq/L (3.5-5.2); SODIUM 136 mEq/L (134-144)
[2017-05-27 06:33] LABS: BILIRUBIN-CONJUGATED 2.7 mg/dL (0.0-0.5)
[2017-05-27] MEDS: clonazePAM 0.5 MG TAB PO SCH ×3 (08:29→17:13)
[2017-05-27] MEDS: buPROPion 100 MG TAB PO SCH ×3 (08:29→17:13)
[2017-05-27] MEDS: ASPIRIN 81 MG CHEWABLE TAB PO SCH ×2 (08:30→11:08)
[2017-05-27] MEDS: TAMSULOSIN HCL 0.4 MG CAP PO SCH (08:30)
--- NOTE | 2017-05-27 08:35 | SOAPPROG ---
SOAP Progress Note Assessment/Plan: Assessment/Plan: 87-year-old gentleman postop day 2. Status post laparoscopic lysis of adhesions with repair of enterotomy. The patient became confused postoperatively and then went into oliguric renal failure and subsequently became hypotensive. He responded to vasopressor medication and fluid hydration. He is left acidotic his confusion has abated. Tolerating maps in the 60-65 range for blood pressure. Alert oriented Regular rate and rhythm paced rhythm on EKG strip Clear to auscultation on the left bronchus on the right Abdomen soft distended NG tube replaced with 600 cc out last night. Patient has minimal erythema around incisions likely irritation as opposed infection. Left flank edematous. Impression/plan: Postoperative renal failure no evidence of cardiac compromise. Oxygen requirements decreasing. Would continue to monitor in the ICU today creatinine down to 2.6 from 3.1 yesterday. Continue fluid hydration. Antibiotics started empirically for possible septic picture would continue them until objective evidence suggests we should discontinue or streamline. Discussed with the patient and care team. Webber catheter for precise measurement of urinary output may have clear liquid diet around NG tube for now 05/26/17 08:37 05/27/17 08:31 Objective: Vital Signs Temp Pulse Resp BP Pulse Ox 36.7 C 90 15 116/44 L 96 05/27/17 04:00 05/27/17 06:00 05/27/17 06:00 05/27/17 06:00 05/27/17 06:00 Laboratory Results 05/26/17 15:14 05/27/17 05:35 05/26/17 05/27/17 05/28/17 05:59 05:59 05:59 Intake Total 1250 5405 Output Total 350 785 Balance 900 4620 ICD10 Worksheet Patient Problems: Problems Problem Status Onset Abdominal pain Acute Partial small bowel obstruction Acute
--- NOTE | 2017-05-27 08:56 | ECHO ---
[id number] + + [address] : : [place] [address] : : [phone] + + Adult Echocardiographic Report + -------+ :Name: ESTER LOOMIS HStudy Date: 05/26/2017 01:32 PM : : Hospital Admission Number: [id number] Locati on: 254: :: 1930 Gender: Male Height: 72 in : :Age: 87 yrs Race: WH Weight: 213 lb : :Reason For Study: Hypotension/Elevated troponin : : BSA: 2.2 meter s2 : :History: Pacer : + -------+ Doppler Measurements \T\ Calculations MV E max ct: 66.0 cm/sec Ao V2 max: 74.7 cm/sec TR max ct: 296.7 cm/sec MV A max ct: 53.0 cm/sec Ao max P.2 mmHg TR max P.2 mmHg MV E/A: 1.2 RAP systole: 10.0 mmHg RVSP(TR): 45.2 mmHg Left Ventricle The left ventricle is normal in size. EF estimate is 50-55%. Septal motion is consistent with conduction abnormality. Right Ventricle There is a pacemaker lead in the right ventricle. The right ventricle is mildly dilated. The right ventricular systolic function is normal. Atria The left atrium is mildly dilated. Right atrial size is normal. Mitral Valve The mitral valve is normal. There is mild mitral regurgitation. Tricuspid Valve Normal tricuspid valve. There is trace tricuspid regurgitation. Right ventricular systolic pressure is 46mmHg. There is Doppler evidence for mild pulmonary hypertension. Aortic Valve The aortic valve opens well. There is no aortic stenosis. There is no aortic insufficiency. Pulmonic Valve The pulmonic valve is not well visualized. Great Vessels The aortic root is normal size. Pericardium/Pleural Trivial anterior pericardial effusion. Conclusion A complete two-dimensional transthoracic echocardiogram was performed (2D, M-mode, Doppler and color flow Doppler). EF estimate is 50-55%. Septal motion is consistent with conduction abnormality. There is a pacemaker lead in the right ventricle. Mild RV dilation with normal RV systolic function The left atrium is mildly dilated. Right atrial size is normal. There is mild mitral regurgitation. There is trace tricuspid regurgitation. Right ventricular systolic pressure is 46mmHg. There is Doppler evidence for mild pulmonary hypertension. Trivial anterior pericardial effusion No prior study Final Reading Physician: Dr Joseline Madrid electronically signed on 05/27/2017 08:55 AM Ordering Physician: Nate Bonilla Performed By: Gisselle Rolon, CS
[2017-05-27] MEDS: LISINOPRIL 40 MG TAB PO SCH (09:04)
[2017-05-27] MEDS ORDERED: LIDOCAINE 1% 300 MG/30 ML SDV ONE ×2 (09:48→10:11)
--- NOTE | 2017-05-27 09:54 | PDCARPN ---
Cardiology Progress Note Assessment/Plan: Assessment/plan: 87 yo M with hx of PAF and PPM (followed at [facility]), admitted with SBO. s/p lysis of adhesions 05/25. Post op course complicated by ARF, hypotension, hypoxic respiratory failure and minimally positive troponin 1. Shock: appears hypovolemic. Has responded to fluids, albumin, pressors. On empiric antibiotics. No outpatient steroid use. 2. ARF: improving with IVF. On bicarb drip 3. Hypoxic respiratory failure and now possible aspiration: may need intubation. This does not seem to be CHF 4. Borderline troponin elevation: peak 0.396. Appears to be strain in the setting of hypotension/hypoxia and not primary ACS. Continue ASA. Beta blockers contraindicated with hypotension. Have requested cardiology records from Dr. Holliday at the . 4. PAF and PPM: rate controlled, pacer dependent. On Eliquis as outpatient. Resume this once stable surgically. Consider ppx lovenox, will defer to critical care. 05/27/17 09:55 Subjective: No CP. Coughing since eating jello Reviewed/Discussed With: other (Dr. Johnson) Objective: Vital Signs (8 Hrs) Temp Pulse Resp BP Pulse Ox 05/27/17 09:00 77 28 H 132/58 H 96 05/27/17 08:00 36.6 C 87 27 H 119/78 98 05/27/17 07:00 88 26 H 112/57 L 97 05/27/17 06:00 90 15 116/44 L 96 05/27/17 05:00 78 22 H 119/60 98 05/27/17 04:00 36.7 C 87 24 H 120/61 98 05/27/17 03:00 83 25 H 97/45 L 94 05/27/17 02:00 85 24 H 134/53 H 92 Intake/Output (24 Hrs) 05/26/17 05/27/17 05/28/17 05:59 05:59 05:59 Intake Total 1250 5405 Output Total 350 785 Balance 900 4620 Intake: Oral (ml) 50 IV Intake (ml) 672 IV Infused (ml) 1200 4733 Albumin 25% 100 ml @ As 200 Directed IV ONCE ONE Rx#: [id number] D5W 1/2 NS W/ 20 KCl/L 1, 1200 1400 000 ml @ 125 mls/hr IV CONT RADHIKA Rx#:[id number] Norepinephrine/Ns 500 ml 1394 @ Titrate IV CONT RADHIKA Rx# :[id number] Sodium Bicarbonate 150 1386 meq In D5w 1,000 ml @ 100 mls/hr IV CONT RADHIKA Rx#: [id number] Vasopressin/Dextrose 250 353 ml @ As Directed IV CONT RADHIKA Rx#:[id number] Output: Urine (ml) 300 285 Catheter 275 Urinal 300 10 NG Tube Output (ml) 50 500 Large Bore (>12 Bahraini) 50 500 Right Naris Stomach 18 Bahraini Other: Weight 96.8 kg 100 kg Number of Voids Urinal 1 Coughing, dyspneic RRR no m/r/g Diffuse anterolateral rhonchi Abd distended. Decreased bowel sounds. No edema CXR 05/26: PICC line. Right tracheal deviation. No CHF or pna Result Diagrams: 05/26/17 15:14 05/27/17 05:35 Cardiac Labs: Cardiac Lab Results (72 Hrs) 05/26/17 05/26/17 05/26/17 19:50 14:21 11:48 Troponin I 0.250 H 0.396 H REJ 05/26/17 05:30 Troponin I 0.261 H Telemetry: AF, V pacing. Rare A pacing. Echocardiogram: reviewed: normal LVEF with no ischemic WMA. Mild MR. Trace TR with mild PHTN. Mild RV dilation and normal RV systolic function ICD10 Worksheet Patient Problems: Problems Problem Status Onset Partial small bowel obstruction Acute Abdominal pain Acute
[2017-05-27] MEDS ORDERED: LIDOCAINE 2% JELLY 5 ML TUBE ONE (09:58)
[2017-05-27] MEDS ORDERED: ETOMIDATE 40 MG/20 ML INJ ONE (10:06)
[2017-05-27] MEDS ORDERED: MIDAZOLAM 2 MG/2 ML VIAL ONE (10:06)
[2017-05-27] MEDS ORDERED: PROPOFOL/EMULSION 1,000 MG/100 ML BOTTLE IV ONE (10:15)
[2017-05-27] MEDS ORDERED: PROPOFOL/EMULSION 100 ML IV SCH (10:38)
[2017-05-27] MEDS ORDERED: MIDAZOLAM 2 MG/2 ML VIAL IVP ONE (10:45)
[2017-05-27] MEDS ORDERED: LIDOCAINE 2% JELLY 5 ML TUBE TP ONE (10:45)
[2017-05-27] MEDS ORDERED: LIDOCAINE 1% 300 MG/30 ML SDV MISC ONE (10:45)
[2017-05-27] MEDS ORDERED: ETOMIDATE 40 MG/20 ML INJ IV ONE (10:45)
[2017-05-27] MEDS: VASOPRESSIN/DEXTROSE 250 ML IV SCH ×2 (11:15→22:02)
[2017-05-27] MEDS ORDERED: VANCOMYCIN HCL/NORMAL SALINE 250 ML IV ONE (12:00)
[2017-05-27] MEDS: SODIUM BICARBONATE 150 MEQ in D5W 1,000 ML IV SCH (12:55)
[2017-05-27] MEDS ORDERED: SODIUM BICARBONATE 150 MEQ in D5W 1,000 ML IV SCH (13:00)
--- NOTE | 2017-05-27 13:04 | PDINTPN ---
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 On POD# 2, developed soft hypotension and was treated with gentle IVF, but BP issues persisted and needed transfer to ICU for pressors and hypoxemia on 7. There was no clear cause- a small troponin bump was though to be from stress and exacerbated by DAISY and his echo was unremarkable; he was afebrile and had no WBC making infection less likely; he had not been on previous steroids and had no evidence of adrenal hemorrhage; he initially responded to IVF but not later and a NICOM showed no response; his H/ H was stable and a non-contrast abdo CT did not show evidence of hemorrhage or other abnormalities (besides normal postop changes). He had been receiving VTE prophylaxis, though had been off Eliquis which he took for chronic afib. He was treated with a HCO3 gtt at 100/hr for DAISY and empiric Zosyn/vanco, and by AM 05/27 looked much better with a reduction in levophed, increased UOP, decreased creatinine, and decreased O2 requirement. * Acute respiratory failure with hypoxia- His diet was advanced 05/27 and shortly after eating Jello developed severe hypoxemia (88% on NRB) and required emergent intubation followed by an unremarkable bronchoscopy. His CXR showed some atelectasis in the LLL with a small effusion, but this was not dramatically different from previous films and had no clear CHF exacerbation. Continue with vent protocol, titrate FiO2 as tolerated and recheck CXR in AM. I suspect an aspiration event, which should be covered with current antibiotics. CBC pending * Hypotension- he seemed to be responding to volume despite the NICOM data. After ETT his pressor requirement increased slightly. Since I dont think he is in CHF at the moment (despite a high BNP) I would continue his HCO3 drip for now and target a SBP >90. Abdominal compartment syndrome seems highly unlikely, but will check a bladder pressure to be sure. * DAISY- most c/w hypotension induced ATN. Significant increase in uop and drop in creatinine from 3.1 to 2.6. Continue HCO3 drip but will reduce rate from 100/ hr to 50/hr. * s/p Laparoscopic SOMMER- he has minimal erythema on his incision sites with slight eschar on his midline incision. There is patchy erythema on the left flank as well, but no significant correlates on his abdominal CT. Monitor, but hsould be OK to use NGT for meds if OK with Dr. Bonilla. * CHF- he is pacer dependent and has maintained capture. No WMAs on echo and his EF is 50-55 with normal RVF. Trop peaked at 0.396 and now down to 0.250. 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 Not an issue for intubation. * Critical care time 75 minutes separate from procedures for MOF Objective: Vital Signs Temp Pulse Resp BP Pulse Ox 36.6 C 86 15 123/73 H 98 05/27/17 08:00 05/27/17 12:00 05/27/17 12:00 05/27/17 12:00 05/27/17 12:00 Laboratory Results 05/26/17 15:14 05/27/17 05:35 05/26/17 05/27/17 05/28/17 05:59 05:59 05:59 Intake Total 1250 5405 Output Total 350 785 Balance 900 4620 Physical Exam - Physical Exam General Appearance: moderate distress, other (constant cough) EENT: PERRL/EOMI Neck: supple Respiratory: respiratory distress, accessory muscle use, decreased breath sounds Cardiac/Chest: regular rate, rhythm, edema (abdominal wall edema) Abdomen: distended, guarding, other (diffuse tenderness), No normal bowel sounds Skin: normal color, warm/dry Lymphatic: no adenopathy Extremities: No pedal edema Neuro/Psych: alert, normal mood/affect, oriented x 3, other (prior to intubation ) ICD10 Worksheet Patient Problems: Problems Problem Status Onset Abdominal pain Acute Partial small bowel obstruction Acute
--- NOTE | 2017-05-27 13:31 | GPN ---
[f rep st] PROCEDURE NOTE DATE OF PROCEDURE: 05/27/2017 PROCEDURE: Bronchoscopy. INDICATION: Respiratory failure and aspiration. CONSENT: Was waived due to the emergent nature of the procedure, though this was discussed with his family following the event. ANESTHESIA: Conscious sedation was achieved using a propofol drip. The patient tolerated this well . DESCRIPTION OF PROCEDURE: The bronchoscope was easily passed through a recently placed endotracheal tube. There were thin secretions seen throughout the airway, but no major mucus plugs. There was no excess edema. There were no food particles or foreign bodies found in a thorough inspection of a ll subsegmental airways. There was no widening of the main chele as well. The patient tolerated this procedure well. /[id number]/MODL
--- NOTE | 2017-05-27 13:31 | GPN ---
[f rep st] PROCEDURE NOTE DATE OF PROCEDURE: 05/27/2017 PROCEDURE: Emergent intubation. INDICATION: Respiratory failure and hypoxemia. CONSENT: Was waived due to the emergent nature of the procedure, as was a time-out. ANESTHESIA: Conscious sedation was achieved using a total of 1 mg Versed and 20 mg of IV etomidate. The patient tolerated this well. PROCEDURE IN DETAIL: An 8.0 endotracheal tube was easily passed on the first attempt with excellent visualization of his vocal cords. There were no significant secretions or mucus plugs in the poste rior pharynx. Vocal cords appeared to move normally. The ET tube was advanced without difficulty, followed by tube condensation, equal breath sounds, sultana ropriate color change on capnography and an improvement in oxygen saturations. There were no excess sounds heard in the midepigastric region. A chest x-ray showed excellent position of the endotracheal tube. There were no complications. /[id number]/MODL
[2017-05-27 13:38] LABS: ADD MORPH? NO; ADD SCAN? YES; ATYPICAL LYMPHOCYTE FLAG 0 (0-99); FRAGMENT RBC FLAG 0 (0-99); HEMATOCRIT 37.5 % (40.0-51.0); HEMOGLOBIN 12.1 g/dL (13.7-17.5); LIPEMIA HEMOLYSIS FLAG 80 (0-99); MEAN CELL HEMOGLOBIN 30.9 pg (27.9-34.1); MEAN CELL HEMOGLOBIN CONCENTR. 32.3 g/dL (32.4-36.7); MEAN CELL VOLUME 95.9 fL (81.5-99.8); MEAN PLATELET VOLUME 9.8 fL (8.7-11.7); PLATELET CLUMPS FLAG 10 (0-99); PLATELET COUNT 170 10^3/uL (150-400); RED BLOOD CELL COUNT 3.91 10^6/uL (4.40-6.38); RED CELL DISTRIBUTION WIDTH 13.7 % (11.5-15.2)
[2017-05-27 13:43] LABS: LEFT SHIFT FLG 300 (0-99)
[2017-05-27 14:06] LABS: ADD DIFF? YES; SCAN POSITIVE
[2017-05-27 14:13] LABS: PLATELET ESTIMATE ADEQUATE (ADEQ)
[2017-05-27 14:15] LABS: ECHINOCYTES 2+
[2017-05-27] MEDS: PROPOFOL/EMULSION 100 ML IV SCH ×2 (14:49→19:54)
[2017-05-27 15:23] LABS: CALCULATED OXYGEN SATURATION 93 % (92-95); O2 CONCENTRATIION 40 % (0-100)
[2017-05-27] MEDS: HEPARIN 5,000 UNIT/0.5 ML SYR SC SCH ×2 (15:41→21:26)
[2017-05-27] MEDS: CHLORHEXIDINE GLUCONATE 15 ML UDL PO SCH (19:56)
[2017-05-27] MEDS: traZODone 100 MG TAB PO SCH (21:26)
[2017-05-27] MEDS: FAMOTIDINE 20 MG/NACL 50 ML IV SCH (21:26)
--- NOTE | 2017-05-27 22:00 | SOAPPROG ---
SOAP Progress Note Assessment/Plan: Assessment/Plan: 87-year-old gentleman postop day 2. Status post laparoscopic lysis of adhesions with repair of enterotomy. The patient became confused postoperatively and then went into oliguric renal failure and subsequently became hypotensive. He responded to vasopressor medication and fluid hydration. He is left acidotic his confusion has abated. Tolerating maps in the 60-65 range for blood pressure. Aspirated Intubated with normal bronchoscopy Alert oriented Regular rate and rhythm paced rhythm on EKG strip Abdomen soft distended NG tube replaced with 1500 cc out last Patient has minimal erythema around incisions likely irritation as opposed infection. Left flank edematous. Impression/plan: ? sepsis (not showing signs) Supportive care for BP and renal failure (DAISY) Lasix x1 tonight Nephrology consult in am 05/26/17 08:37 05/27/17 08:31 05/27/17 21:51 Objective: Vital Signs Temp Pulse Resp BP Pulse Ox 37.8 C 72 15 105/58 L 96 05/27/17 19:00 05/27/17 21:00 05/27/17 21:00 05/27/17 19:00 05/27/17 21:00 Laboratory Results 05/27/17 13:00 05/27/17 05:35 05/26/17 05/27/17 05/28/17 05:59 05:59 05:59 Intake Total 1250 5405 3001 Output Total 800 017 1456 Balance 900 4620 1962 ICD10 Worksheet Patient Problems: Problems Problem Status Onset Abdominal pain Acute Partial small bowel obstruction Acute
[2017-05-27] MEDS ORDERED: FUROSEMIDE 20 MG/2 ML VIAL IV ONE (23:00)
[2017-05-28] MEDS: NOREPINEPHRINE BITARTRATE 4 MG in NS 500 ML IV SCH ×6 (00:05→20:48)
[2017-05-28 04:29] LABS: ABSOLUTE NRBC COUNT 0.02 10^3/uL (0-0.01); ADD MORPH? NO; ADD SCAN? YES; ATYPICAL LYMPHOCYTE FLAG 0 (0-99); FRAGMENT RBC FLAG 0 (0-99); HEMATOCRIT 35.4 % (40.0-51.0); HEMOGLOBIN 11.9 g/dL (13.7-17.5); LIPEMIA HEMOLYSIS FLAG 80 (0-99); MEAN CELL HEMOGLOBIN 31.6 pg (27.9-34.1); MEAN CELL HEMOGLOBIN CONCENTR. 33.6 g/dL (32.4-36.7); MEAN CELL VOLUME 94.1 fL (81.5-99.8); MEAN PLATELET VOLUME 10.1 fL (8.7-11.7); NRBC-AUTO% 0.2 % (0.0-0.2); PLATELET CLUMPS FLAG 0 (0-99); PLATELET COUNT 153 10^3/uL (150-400); RED BLOOD CELL COUNT 3.76 10^6/uL (4.40-6.38); RED CELL DISTRIBUTION WIDTH 13.7 % (11.5-15.2)
[2017-05-28 04:43] LABS: ANION GAP 12 mEq/L (8-16); CALCIUM 6.8 mg/dL (8.5-10.4); CARBON DIOXIDE 25 mEq/l (22-31); CHLORIDE 101 mEq/L (97-110); GLOMERULAR FILTRATION RATE 20; GLUCOSE 157 mg/dL (70-100); SODIUM 138 mEq/L (134-144)
[2017-05-28 04:44] LABS: LEFT SHIFT FLG 300 (0-99)
[2017-05-28] MEDS: HEPARIN 5,000 UNIT/0.5 ML SYR SC SCH ×3 (05:06→20:45)
[2017-05-28] MEDS: PROPOFOL/EMULSION 100 ML IV SCH ×4 (05:06→23:58)
[2017-05-28] MEDS: PIPERACILLIN/TAZO 2.25 GM/DEX 50 ML IV SCH ×4 (05:07→23:57)
[2017-05-28 05:09] LABS: BASE EXCESS 2.9 mEq/L (-2.5-2.5); BICARBONATE 27 mEq/L (22-26); MEASURED OXYGEN SATURATION 97 % (92-95); PCO2 39 mmHg (34-38); PO2 86 mmHg (65-75); TCO2 28 mEq/L (23-27)
[2017-05-28 05:09] LABS: SCAN POSITIVE
[2017-05-28 05:10] LABS: ADD DIFF? YES
[2017-05-28 05:11] LABS: END TIDAL CO2 33; PATIENT RATE 18; PRESSURE SUPPORT 7
[2017-05-28 05:15] LABS: PLATELET ESTIMATE ADEQUATE (ADEQ)
[2017-05-28] MEDS: VASOPRESSIN/DEXTROSE 250 ML IV SCH ×2 (09:17→20:27)
--- NOTE | 2017-05-28 09:17 | PDINTPN ---
Is Consultant Progress Note Assessment/Plan: Assessment/Plan: * Acute respiratory failure with hypoxia- stable post extubation. He has been on CPAP and doing well, but will hold extubation for now. * Probable aspiration-stable * Shock-on multiple pressors. Likely sepsis. -will address sepsis protocol -wean pressors as tolerated * DAISY- most c/w hypotension induced ATN. Significant increase in uop and drop in creatinine from 3.1 to 2.6. Continue HCO3 drip but will reduce rate from 100/ hr to 50/hr. * s/p Laparoscopic SOMMER- he has minimal erythema on his incision sites with slight eschar on his midline incision. There is patchy erythema on the left flank as well, but no significant correlates on his abdominal CT. -repeat CT scan scheduled for today * CHF- he is pacer dependent and has maintained capture. No WMAs on echo and his EF is 50-55 with normal RVF. Trop peaked at 0.396 and now down to 0.250. 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 Not an issue for intubation. * VTE prophylaxis * Stress ulcer prophylaxis Case discussed with Nursing and Respiratory therapy. Approximately 35 minutes of critical care time spent with patient. Subjective: Sedated on mechanical ventilation. Objective: Vital Signs Temp Pulse Resp BP Pulse Ox 38.0 C 80 96 H 107/43 L 20 L 05/28/17 07:00 05/28/17 09:04 05/28/17 09:04 05/28/17 08:00 05/28/17 09:04 Laboratory Results 05/28/17 04:15 05/28/17 04:15 05/27/17 05/28/17 05/29/17 05:59 05:59 05:59 Intake Total 5405 5597 Output Total 785 2010 245 Balance 4612 4976 -494 Laboratory Results 05/28/17 04:15 05/28/17 04:15 05/28/17 05:00 Puncture Site NONE GIVEN Patient Temperature 37.0 DEGREES DEGREES pCO2 39 mmHg H mmHg (34 - 38) pO2 86 mmHg H mmHg (65 - 75) Total CO2 28 mEq/L H mEq/L (23 - 27) ABG pH 7.45 (7.35 - 7.45) ABG HCO3 27 mEq/L H mEq/L (22 - 26) ABG O2 Saturation 97 % H % (92 - 95) ABG Base Excess 2.9 mEq/L H mEq/L (-2.5 - 2.5) Total O2 Concentration 40.0 LITERS LITERS Actual Respiration Rate 18 End Tidal CO2 33 PEEP 5 Pressure Support 7 Chest p-[id number] by myself endotracheal tube is in good position. There is bibasilar consolidation. Physical Exam - Physical Exam General Appearance: No alert (Sedated) EENT: PERRL/EOMI, ET tube Neck: non-tender, full range of motion Respiratory: crackles (Bibasilar), prolonged expiration, No respiratory distress , No wheezing Cardiac/Chest: systolic murmur Peripheral Pulses: 2+: carotid (R), carotid (L), femoral (R), femoral (L), dorsalis-pedis (R), dorsalis-pedis (L) Abdomen: normal bowel sounds, non-tender, soft Male Genitalia: deferred Rectal: deferred Skin: normal color, warm/dry Extremities: normal range of motion, non-tender, normal inspection, normal capillary refill Neuro/Psych: No alert ICD10 Worksheet Patient Problems: Problems Problem Status Onset Abdominal pain Acute Partial small bowel obstruction Acute
[2017-05-28] MEDS ORDERED: HYDROCORTISONE 100 MG/2 ML VIAL IVP SCH ×2 (09:30→16:15)
[2017-05-28] MEDS: TAMSULOSIN HCL 0.4 MG CAP PO SCH (09:46)
[2017-05-28] MEDS: buPROPion 100 MG TAB TUBE SCH ×3 (10:24→17:29)
[2017-05-28] MEDS: CHLORHEXIDINE GLUCONATE 15 ML UDL PO SCH ×2 (10:24→20:48)
[2017-05-28] MEDS: clonazePAM 0.5 MG TAB TUBE SCH ×3 (10:24→17:29)
[2017-05-28] MEDS: ASPIRIN 81 MG CHEWABLE TAB TUBE SCH (10:24)
[2017-05-28] MEDS: ASPIRIN 81 MG CHEWABLE TAB PO SCH (10:25)
[2017-05-28] MEDS: buPROPion 100 MG TAB PO SCH (10:25)
[2017-05-28] MEDS: clonazePAM 0.5 MG TAB PO SCH (10:25)
[2017-05-28 11:18] LABS: LACGHOST ORDER
[2017-05-28] MEDS: fentaNYL 100 MCG/2 ML INJ IVP PRN ×2 (12:53→20:46)
--- NOTE | 2017-05-28 12:53 | SOAPPROG ---
SOAP Progress Note Assessment/Plan: Assessment/Plan: 87-year-old gentleman postop day 3. Status post laparoscopic lysis of adhesions with repair of enterotomy. The patient became confused postoperatively and then went into oliguric renal failure and subsequently became hypotensive. Shock ?septic responded to vasopressor medication and fluid hydration. He is left acidotic his confusion has abated. Tolerating maps in the 60-65 range for blood pressure. Aspirated Intubated with normal bronchoscopy 05/27 CTA (rhochi from airways transmitted) Regular rate and rhythm paced rhythm on EKG strip MAPs 60-65 on vasopressing 0.4 and Ferny 12 Abdomen soft distended NG tube replaced with 1500 cc out last Patient has minimal erythema around incisions likely irritation as opposed infection. Left flank edematous. No peripheral edema Impression/plan: ? sepsis (not showing signs) CT with oral contrast today Hypovolemic fluid challenge Supportive care for BP and renal failure (DAISY) Leucocytosis 9.6 with shift (highest) ? adrenal insufficiency ? 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
[2017-05-28] MEDS ORDERED: NS 1,000 ML IV ONE (12:55)
[2017-05-28] MEDS ORDERED: buPROPion 100 MG TAB TUBE SCH (13:00)
[2017-05-28] MEDS ORDERED: clonazePAM 0.5 MG TAB TUBE SCH (13:00)
--- NOTE | 2017-05-28 13:21 | PDCARPN ---
Cardiology Progress Note Assessment/Plan: Assessment/plan: 87 yo M with hx of PAF and PPM (followed at [facility]), admitted with SBO. s/p lysis of adhesions 05/25. Post op course complicated by ARF, hypotension, hypoxic respiratory failure and minimally positive troponin 1. Shock: appears hypovolemic and possibly septic. Has responded to fluids, albumin, pressors; however, he remains pressor dependent. On empiric antibiotics. No outpatient steroid use. Abdominal CT today. 2. ARF: Stable at this point. He is making urine. 3. Hypoxic respiratory failure and aspiration: Required intubation on 05/27. May be able to extubate tomorrow. 4. Borderline troponin elevation: peak 0.396. Appears to be strain in the setting of hypotension/hypoxia and not primary ACS. Continue ASA. Beta blockers contraindicated with hypotension. Have requested cardiology records from Dr. Holliday at the . 4. PAF and PPM: rate controlled, pacer dependent. On Eliquis as outpatient. Resume this once stable surgically. We will sign off. Please re-consult with questions or concerns 05/28/17 13:28 Subjective: Patient is intubated and sedated Reviewed/Discussed With: other (Dr. Guevara) Objective: Vital Signs (8 Hrs) Temp Pulse Resp BP Pulse Ox 05/28/17 13:00 37.5 C 67 15 97/47 L 97 05/28/17 12:00 36.9 C 73 15 117/52 L 96 05/28/17 11:00 79 15 111/50 L 96 05/28/17 10:00 73 15 124/61 H 95 05/28/17 09:04 80 96 H 20 L 05/28/17 08:00 82 19 107/43 L 96 05/28/17 07:00 38.0 C 80 19 99/45 L 96 05/28/17 06:00 82 18 91/42 L 95 Intake/Output (24 Hrs) 05/27/17 05/28/17 05/29/17 05:59 05:59 05:59 Intake Total 5405 5597 Output Total 785 2010 385 Balance 4661 9119 -385 Intake: IV Intake (ml) 672 570 IV Infused (ml) 0311 5920 Albumin 25% 100 ml @ As 200 Directed IV ONCE ONE Rx#: [id number] D5W 1/2 NS W/ 20 KCl/L 1, 1400 000 ml @ 125 mls/hr IV CONT RADHIKA Rx#:[id number] Norepinephrine/Ns 500 ml 1394 1851 @ Titrate IV CONT RADHIKA Rx# :[id number] Propofol/Emulsion 100 ml 383 @ Per Protocol IV CONT RADHIKA Rx#:[id number] Sodium Bicarbonate 150 1386 2165 meq In D5w 1,000 ml @ 100 mls/hr IV CONT RADHIKA Rx#: [id number] Vasopressin/Dextrose 250 353 538 ml @ As Directed IV CONT RADHIKA Rx#:[id number] Tube Flush (ml) 90 Output: Urine (ml) 285 1311 385 Catheter 275 1311 385 Urinal 10 NG Tube Output (ml) 500 700 Large Bore (>12 Palestinian) 500 700 Right Naris Stomach 18 Palestinian Other: Weight 100 kg 105 kg Intubated and sedated. He does open his eyes in response to his name. Regular rate and rhythm without obvious murmur rub or gallop Lungs fairly clear anteriorly and laterally without rhonchi or wheezes. Abdomen is distended. Absent bowel sounds. Extremities are warm well perfused without cyanosis clubbing or edema Result Diagrams: 05/28/17 04:15 05/28/17 04:15 Cardiac Labs: Cardiac Lab Results (72 Hrs) 05/26/17 05/26/17 05/26/17 19:50 14:21 11:48 Troponin I 0.250 H 0.396 H REJ 05/26/17 05:30 Troponin I 0.261 H Telemetry: Atrial fibrillation with ventricular pacing. Intermittent sinus rhythm. Intermittent atrial pacing. ICD10 Worksheet Patient Problems: Problems Problem Status Onset Partial small bowel obstruction Acute Abdominal pain Acute
[2017-05-28] MEDS ORDERED: ALBUMIN 5% 500 ML IV ONE (15:27)
--- NOTE | 2017-05-28 19:19 | CPEKG ---
Heart Rate: 94 RR Interval: 638 QRSD Interval: 156 QT Interval: 468 QTC Interval: 586 QRS [place]: -81 T Wave [place]: -36 EKG Severity - ABNORMAL ECG - EKG Impression: ATRIAL FIBRILLATION, V-RATE 60-65 EKG Impression: RIGHT BUNDLE BRANCH BLOCK EKG Impression: PROBABLE INFERIOR INFARCT, AGE INDETERMINATE EKG Impression: NO EVIDENCE OF ELECTRONIC PACING SINCE MAY 26, 2017 EKG Impression: LOTS OF ARTIFACT Electronically Signed By: Danny Ellis 29-May-2017 06:24:33
[2017-05-28 19:53] LABS: BASE EXCESS 0.5 mEq/L (-2.5-2.5); BICARBONATE 23 mEq/L (22-26); MEASURED OXYGEN SATURATION 96 % (92-95); PCO2 33 mmHg (34-38); PO2 82 mmHg (65-75); TCO2 24 mEq/L (23-27)
[2017-05-28 19:55] LABS: END TIDAL CO2 27; O2 CONCENTRATIION 40 % (0-100); P/F RATIO 205 RATIO; SIMV YES
[2017-05-28 19:56] LABS: PATIENT RATE 26; PRESSURE SUPPORT 7
[2017-05-28] MEDS: HYDROCORTISONE 100 MG/2 ML VIAL IVP SCH (20:43)
[2017-05-28] MEDS: FAMOTIDINE 20 MG/NACL 50 ML IV SCH (20:44)
[2017-05-28] MEDS: traZODone 100 MG TAB TUBE SCH (20:48)
[2017-05-29] MEDS: NOREPINEPHRINE BITARTRATE 4 MG in NS 500 ML IV SCH ×3 (03:00→23:29)
[2017-05-29 05:25] LABS: BASE EXCESS 0.3 mEq/L (-2.5-2.5); BICARBONATE 24 mEq/L (22-26); CPAP YES; END TIDAL CO2 31; MEASURED OXYGEN SATURATION 95 % (92-95); O2 CONCENTRATIION 40 % (0-100); P/F RATIO 190 RATIO; PATIENT RATE 16; PCO2 38 mmHg (34-38); PO2 76 mmHg (65-75); PRESSURE SUPPORT 7; TCO2 25 mEq/L (23-27)
[2017-05-29] MEDS: PIPERACILLIN/TAZO 2.25 GM/DEX 50 ML IV SCH ×3 (05:25→17:19)
[2017-05-29] MEDS: HEPARIN 5,000 UNIT/0.5 ML SYR SC SCH ×2 (05:26→13:30)
[2017-05-29 05:59] LABS: % IMMATURE GRANULYOCYTES 2.2 % (0.0-1.1); ABSOLUTE IMMATURE GRANULOCYTES 0.21 10^3/uL (0.00-0.10); ADD DIFF? NO; ADD MORPH? NO; ADD SCAN? YES; ATYPICAL LYMPHOCYTE FLAG 0 (0-99); FRAGMENT RBC FLAG 0 (0-99); HEMATOCRIT 34.6 % (40.0-51.0); HEMOGLOBIN 11.5 g/dL (13.7-17.5); LIPEMIA HEMOLYSIS FLAG 80 (0-99); MEAN CELL HEMOGLOBIN 30.6 pg (27.9-34.1); MEAN CELL HEMOGLOBIN CONCENTR. 33.2 g/dL (32.4-36.7); MEAN PLATELET VOLUME 10.4 fL (8.7-11.7); PLATELET CLUMPS FLAG 10 (0-99); PLATELET COUNT 124 10^3/uL (150-400); RED BLOOD CELL COUNT 3.76 10^6/uL (4.40-6.38); RED CELL DISTRIBUTION WIDTH 13.6 % (11.5-15.2)
[2017-05-29 06:02] LABS: LEFT SHIFT FLG 300 (0-99)
[2017-05-29 07:20] LABS: SCAN NEGATIVE
[2017-05-29] MEDS: PROPOFOL/EMULSION 100 ML IV SCH (07:59)
[2017-05-29] MEDS: fentaNYL 100 MCG/2 ML INJ IVP PRN (08:12)
[2017-05-29] MEDS: clonazePAM 0.5 MG TAB TUBE SCH ×3 (08:18→17:19)
[2017-05-29] MEDS: buPROPion 100 MG TAB TUBE SCH ×3 (08:19→17:19)
[2017-05-29] MEDS: CHLORHEXIDINE GLUCONATE 15 ML UDL PO SCH ×2 (08:19→21:07)
[2017-05-29] MEDS: ASPIRIN 81 MG CHEWABLE TAB TUBE SCH (08:20)
[2017-05-29] MEDS: HYDROCORTISONE 100 MG/2 ML VIAL IVP SCH ×2 (08:21→21:05)
--- NOTE | 2017-05-29 08:54 | PDINTPN ---
Environmental Health And Safety Manager Progress Note Assessment/Plan: Assessment/Plan: * Acute respiratory failure with hypoxia- stable post extubation. Did well with CPAP trial today -will assess for extubation today * Probable aspiration-stable * Shock-off vasopressin. Will wean Levophed as tolerated * DAISY- most c/w hypotension induced ATN. Significant increase in uop and drop in creatinine from 3.1 to 2.6. Continue HCO3 drip but will reduce rate from 100/ hr to 50/hr. * s/p Laparoscopic SOMMER- he has minimal erythema on his incision sites with slight eschar on his midline incision. There is patchy erythema on the left flank as well, but no significant correlates on his abdominal CT. -repeat CT scan scheduled for today * CHF- he is pacer dependent and has maintained capture. No WMAs on echo and his EF is 50-55 with normal RVF. 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 Not an issue for intubation. * VTE prophylaxis * Stress ulcer prophylaxis Case discussed with Nursing and Respiratory therapy. Approximately 40 minutes of critical care time spent with patient. Subjective: Awake and alert. On mechanical ventilation. Objective: Vital Signs Temp Pulse Resp BP Pulse Ox 36.8 C 60 21 H 100/51 L 96 05/29/17 07:00 05/29/17 07:00 05/29/17 07:00 05/29/17 07:00 05/29/17 07:00 Laboratory Results 05/29/17 05:05 05/28/17 04:15 05/28/17 05/29/17 05/30/17 05:59 05:59 05:59 Intake Total 5597 6011 Output Total 2010 1040 Balance 3586 4971 Laboratory Results 05/29/17 05:05 05/28/17 04:15 05/29/17 05:12 Patient Temperature 37.4 DEGREES DEGREES pCO2 38 mmHg mmHg (34 - 38) pO2 76 mmHg H mmHg (65 - 75) Total CO2 25 mEq/L mEq/L (23 - 27) ABG pH 7.42 (7.35 - 7.45) ABG PO2/FiO2 Ratio 190 RATIO RATIO ABG HCO3 24 mEq/L mEq/L (22 - 26) ABG O2 Saturation 95 % % (92 - 95) ABG Base Excess 0.3 mEq/L mEq/L (-2.5 - 2.5) O2 Concentration % 40 % % Actual Respiration Rate 16 End Tidal CO2 31 PEEP 5 Pressure Support 7 CPAP YES - Time Spent With Patient Time Spent With Patient: 40 Physical Exam - Physical Exam General Appearance: WD/WN, alert, no apparent distress EENT: PERRL/EOMI, ET tube Neck: non-tender, full range of motion, supple Respiratory: decreased breath sounds, crackles (Few basilar), No respiratory distress, No wheezing Cardiac/Chest: normal peripheral pulses, regular rate, rhythm, systolic murmur Peripheral Pulses: 2+: carotid (R), carotid (L), femoral (R), femoral (L), dorsalis-pedis (R), dorsalis-pedis (L) Abdomen: normal bowel sounds, non-tender, soft Male Genitalia: deferred Rectal: deferred Skin: normal color, warm/dry Neuro/Psych: alert ICD10 Worksheet Patient Problems: Problems Problem Status Onset Abdominal pain Acute Partial small bowel obstruction Acute
[2017-05-29] MEDS ORDERED: ASPIRIN 81 MG CHEWABLE TAB TUBE SCH (09:00)
[2017-05-29 10:56] LABS: BASE EXCESS 1.5 mEq/L (-2.5-2.5); BICARBONATE 24 mEq/L (22-26); MEASURED OXYGEN SATURATION 92 % (92-95); PCO2 33 mmHg (34-38); PO2 63 mmHg (65-75); TCO2 25 mEq/L (23-27)
--- NOTE | 2017-05-29 17:13 | SOAPPROG ---
SOAP Progress Note Assessment/Plan: Assessment/Plan: 87-year-old gentleman postop day 4. Status post laparoscopic lysis of adhesions with repair of enterotomy. The patient became confused postoperatively and then went into oliguric renal failure and subsequently became hypotensive. Shock ?septic responded to vasopressor medication and fluid hydration. He is left acidotic his confusion has abated. Tolerating maps in the 60-65 range for blood pressure. Aspirated Intubated with normal bronchoscopy 05/27 Extubated this morning CTA (rhochi from airways transmitted) Regular rate and rhythm paced rhythm on EKG strip MAPs 60-65 off vasopressin and Ferny down to 6 Abdomen soft distended NG tube replaced with 1500 cc out last Patient has minimal erythema around incisions likely irritation as opposed infection. Left flank edematous. No peripheral edema Impression/plan: CT no definitive leak. Small intra abdominal collection white count normal possible sepsis from this. No need for intra-abdominal exploration or IR drainage. Hypovolemic fluid challenge Supportive care for BP and renal failure (DAISY). Leucocytosis 9.6 stable adrenal insufficiency Continue supportive care Start trickle tube feeds 05/29/17 17:13 Objective: Vital Signs Temp Pulse Resp BP Pulse Ox 36.8 C 60 20 99/49 L 96 05/29/17 14:55 05/29/17 15:20 05/29/17 15:20 05/29/17 15:20 05/29/17 15:20 Laboratory Results 05/29/17 05:05 05/28/17 04:15 05/28/17 05/29/17 05/30/17 05:59 05:59 05:59 Intake Total 5597 6011 875 Output Total 2010 1039 700 Balance 3586 4971 175 ICD10 Worksheet Patient Problems: Problems Problem Status Onset Abdominal pain Acute Partial small bowel obstruction Acute
[2017-05-29] MEDS: FAMOTIDINE 20 MG/NACL 50 ML IV SCH (21:05)
[2017-05-29] MEDS: traZODone 100 MG TAB TUBE SCH ×2 (21:06→21:16)
[2017-05-30] MEDS: PIPERACILLIN/TAZO 2.25 GM/DEX 50 ML IV SCH ×5 (01:32→23:46)
[2017-05-30 05:25] LABS: ABSOLUTE NRBC COUNT 0.02 10^3/uL (0-0.01); ADD MORPH? NO; ATYPICAL LYMPHOCYTE FLAG 0 (0-99); FRAGMENT RBC FLAG 0 (0-99); HEMATOCRIT 34.3 % (40.0-51.0); HEMOGLOBIN 11.8 g/dL (13.7-17.5); LIPEMIA HEMOLYSIS FLAG 90 (0-99); MEAN CELL HEMOGLOBIN 31.1 pg (27.9-34.1); MEAN CELL HEMOGLOBIN CONCENTR. 34.4 g/dL (32.4-36.7); MEAN CELL VOLUME 90.3 fL (81.5-99.8); MEAN PLATELET VOLUME 11.1 fL (8.7-11.7); NRBC-AUTO% 0.2 % (0.0-0.2); PLATELET CLUMPS FLAG 10 (0-99); PLATELET COUNT 132 10^3/uL (150-400); RED CELL DISTRIBUTION WIDTH 13.7 % (11.5-15.2)
[2017-05-30 05:26] LABS: ADD DIFF? YES; ADD SCAN? NO; LEFT SHIFT FLG 150 (0-99)
[2017-05-30 05:32] LABS: ECHINOCYTES 1+; PLATELET ESTIMATE DECREASED (ADEQ)
--- NOTE | 2017-05-30 08:47 | PDINTPN ---
Furniture Sales Consultant Progress Note Assessment/Plan: Assessment/Plan: * Acute respiratory failure with hypoxia- stable post extubation. * Probable aspiration-stable * Shock-continue on low-dose Levophed. Wean as tolerated * DAISY- most c/w hypotension induced ATN. Significant increase in uop and drop in creatinine from 3.1 to 2.6. * s/p Laparoscopic SOMMER- he has minimal erythema on his incision sites with slight eschar on his midline incision. There is patchy erythema on the left flank as well, but no significant correlates on his abdominal CT. -repeat CT scan scheduled for today * CHF- he is pacer dependent and has maintained capture. No WMAs on echo and his EF is 50-55 with normal RVF. 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 Not an issue for intubation. * VTE prophylaxis * Stress ulcer prophylaxis * PT/OT Case discussed with Nursing and Respiratory therapy. Subjective: Awake and alert. Comfortable. Denies any pain. Objective: Vital Signs Temp Pulse Resp BP Pulse Ox 37.2 C 61 20 118/56 L 96 05/30/17 00:00 05/30/17 06:00 05/30/17 06:00 05/30/17 06:00 05/30/17 06:00 Laboratory Results 05/30/17 04:27 05/28/17 04:15 05/29/17 05/30/17 05/31/17 05:59 05:59 05:59 Intake Total 6011 3133 Output Total 1040 2000 Balance 4971 1133 Physical Exam - Physical Exam General Appearance: alert, no apparent distress EENT: PERRL/EOMI, normal ENT inspection Neck: non-tender, full range of motion, supple Respiratory: crackles (Few), No respiratory distress, No wheezing Cardiac/Chest: normal peripheral pulses, regular rate, rhythm, systolic murmur Abdomen: soft, No non-tender Male Genitalia: deferred Rectal: deferred Skin: normal color, warm/dry Neuro/Psych: alert ICD10 Worksheet Patient Problems: Problems Problem Status Onset Abdominal pain Acute Partial small bowel obstruction Acute
[2017-05-30] MEDS: clonazePAM 0.5 MG TAB TUBE SCH ×3 (09:14→17:29)
[2017-05-30] MEDS: buPROPion 100 MG TAB TUBE SCH ×3 (09:14→17:28)
[2017-05-30] MEDS: CHLORHEXIDINE GLUCONATE 15 ML UDL PO SCH (09:15)
[2017-05-30] MEDS: HYDROCORTISONE 100 MG/2 ML VIAL IVP SCH ×2 (09:15→20:18)
[2017-05-30] MEDS: ASPIRIN 81 MG CHEWABLE TAB TUBE SCH (09:15)
[2017-05-30 13:42] LABS: ANION GAP 15 mEq/L (8-16); CALCIUM 6.8 mg/dL (8.5-10.4); CARBON DIOXIDE 17 mEq/l (22-31); CHLORIDE 112 mEq/L (97-110); CREATININE 2.1 mg/dL (0.7-1.3); GLOMERULAR FILTRATION RATE 30; GLUCOSE 149 mg/dL (70-100); POTASSIUM 3.2 mEq/L (3.5-5.2); SODIUM 144 mEq/L (134-144)
[2017-05-30] MEDS ORDERED: PROTOCOL POTASSIUM 1 DOSE MISC PRN (14:14)
[2017-05-30] MEDS ORDERED: POTASSIUM CL 10 MEQ TAB PO ONE ×2 (14:31→19:22)
[2017-05-30] MEDS ORDERED: IPRATROPIUM/ALBUTEROL 3 ML DEYVIAL IH PRN (14:55)
[2017-05-30] MEDS: SODIUM CL NASAL 45 ML BTL NS SCH ×3 (17:28→20:27)
[2017-05-30 18:49] LABS: POTASSIUM 3.6 mEq/L (3.5-5.2)
[2017-05-30] MEDS: APIXABAN 2.5 MG TAB PO SCH (20:15)
[2017-05-30] MEDS: ATORVASTATIN CALCIUM 20 MG TAB PO SCH (20:15)
[2017-05-30] MEDS: traZODone 100 MG TAB TUBE SCH (20:16)
[2017-05-30] MEDS: DUTASTERIDE 0.5 MG CAP PO SCH (20:16)
--- NOTE | 2017-05-30 20:18 | SOAPPROG ---
SOAP Progress Note Assessment/Plan: Assessment/Plan: 87-year-old gentleman postop day 5. Status post laparoscopic lysis of adhesions with repair of enterotomy. The patient became confused postoperatively and then went into oliguric renal failure and subsequently became hypotensive. Shock ?septic responded to vasopressor medication and fluid hydration. He is left acidotic his confusion has abated. Tolerating maps in the 60-65 range for blood pressure. Aspirated Intubated with normal bronchoscopy 05/27 Extubated NGT out tolerating diet Walked with assist Cr 2.1 CTA (rhochi from airways transmitted) Regular rate and rhythm paced rhythm on EKG strip Abdomen soft distended NG tube replaced with 1500 cc out last Patient has minimal erythema around incisions likely irritation as opposed infection. Left flank edematous. No peripheral edema Impression/plan: CT no definitive leak. Small intra abdominal collection white count normal possible sepsis from this. No need for intra-abdominal exploration or IR drainage. Hypovolemic fluid challenge Supportive care for BP and renal failure (DAISY). ? adrenal insufficiency Continue supportive care Advance diet Hospital medicine consulted for after ICU Restart Eliquis and home meds tomorrow. 05/29/17 17:13 05/30/17 20:16 Objective: Vital Signs Temp Pulse Resp BP Pulse Ox 36.4 C 60 20 129/46 H 95 05/30/17 19:20 05/30/17 19:20 05/30/17 19:20 05/30/17 19:20 05/30/17 19:20 Laboratory Results 05/30/17 04:27 05/30/17 18:30 05/29/17 05/30/17 05/31/17 05:59 05:59 05:59 Intake Total 6011 3133 200 Output Total 1040 2000 1100 Balance 4971 1133 -900 ICD10 Worksheet Patient Problems: Problems Problem Status Onset Abdominal pain Acute Partial small bowel obstruction Acute
[2017-05-30] MEDS: CLOTRIMAZOLE 1% 15 GM CRTUBE TP SCH (20:33)
[2017-05-30] MEDS: NS 1,000 ML IV SCH (20:37)
[2017-05-30] MEDS ORDERED: NON-FORMULARY NEW DRUG (Simvastatin [Zocor] 40 MG) PO SCH (21:00)
[2017-05-30] MEDS ORDERED: APIXABAN 5 MG TAB PO SCH (21:00)
[2017-05-30] MEDS ORDERED: SODIUM CL NASAL 45 ML BTL NS PRN (21:30)
--- NOTE | 2017-05-31 04:09 | GCON ---
[f rep st] CONSULTATION INTERNAL MEDICINE CONSULTATION DATE OF CONSULTATION: 05/30/2017 REFERRING PHYSICIAN: Nate Bonilla MD REASON FOR CONSULTATION: Medical opinion regarding complex medical course perioperatively. HISTORY: The patient is an 87-year-old male admitted on May 23 with a small bowel obstruction. He went to surgery with Dr. Bonilla on the . He had a laparoscopic lysis of adhesions. His postoperative course was complicated by postoperative hypotension, acute renal failure, and acute respiratory failure requiring intubation. He was felt to have possible sepsis due to an aspiration event. He had a bronchoscopy that was negative. Cardiology saw him and felt that his slight troponin bump was due to demand ischemia and nothing further was required. His creatinine has continued to improve. He has now been extubated. He passed a swallow exam and is now able to take p.o. He is otherwise without complaint at this time. PAST MEDICAL HISTORY: 1. Atrial fibrillation with pacemaker. 2. Partial colectomy in 1973. 3. Prostate cancer, status post radiation. 4. Gout. 5. Hypertension. 6. Obstructive sleep apnea. 7. Depression and anxiety. 8. Peripheral neuropathy. 9. Mediastinal goiter. MEDICATIONS: Please see computer record for full detailed list. ALLERGIES: Cephalexin. SOCIAL HISTORY: No smoking. No alcohol. He has a full-time caregiver. 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 REVIEW OF SYSTEMS: Complete review of systems obtained. Review of systems is negative regarding constitutional, HEENT, GI, pulmonary, cardiovascular, , hematology, skin, musculoskeletal, endocrine, psych, except for positives and negatives as noted in HPI. FAMILY HISTORY: Reviewed and noncontributory to presenting complaint. PHYSICAL EXAMINATION: GENERAL: Well-developed, well-nourished male, in no distress. VITAL SIGNS: Temperature 37.2, pulse 74, blood pressure 121/50, saturating 94% on 1 L. EYES: Normal conjunctivae. Pupils reactive to light. ENT: Normal ears and nose. Hearing intact. Normal lips and teeth. Oropharynx moist. NECK: Trachea midline. No thyromegaly. CHEST: Normal respiratory effort. Lungs clear to auscultation bilaterally. CARDIOVASCULAR: Regular rate and rhythm. No murmur. No lower extremity edema. ABDOMEN: Soft. Nontender. No hepatosplenomegaly. SKIN: Warm, dry, intact, without rash. MUSCULOSKELETAL: No cyanosis or clubbing. Strength 5/5 upper and lower extremities. NEUROLOGIC: Cranial nerves intact. Normal sensation to light touch. PSYCH: Alert and oriented x3. Normal mood. Normal affect. Normal judgment and insight. Normal memory. LABORATORY DATA: White count 9.03, hematocrit 34.3, platelets 132. Sodium 144 , potassium 3.2, chloride 112, bicarb 17, BUN 63, creatinine 2.1. This is down from a peak of 3.1. Glucose 149. Troponin peaked at 0.3. Total bilirubin is at 3.7, mostly conjugated. Procalcitonin was 116. Lactate is 3.2 at last check. IMAGING DATA: CT scan of the abdomen and pelvis recently done shows postoperative ileus and a loculated fluid collection not unanticipated postoperative state. EKG viewed by me, my personal interpretation is: paced rhythm Case discussed with Dr. Nate Bonilla. Medical records extensively reviewed and summarized above. ASSESSMENT AND PLAN: 1. Small bowel obstruction, status post lysis of adhesions. He did have a postoperative ileus, which appears to be resolved as his diet has been advanced per Surgery. 2. Acute renal failure. This is likely acute tubular necrosis due to his shock. He had transient hypotension due to sepsis versus hypovolemia. Anticipate renal failure will resolve with supportive care. He is weaning off steroids, per sepsis protocol. Will check a renal ultrasound. 3. Aspiration pneumonia. Continue IV Zosyn. 4. Troponin elevation. Per cardiology, demand ischemia due to hypotension. No further workup needed number. 5. Atrial fibrillation with pacemaker. It is okay to restart his Eliquis. Will start it at the 2.5 mg dosing until his creatinine has normalized. 6. Increased LFTs. These will be followed. 7. Obstructive sleep apnea. Continue CPAP at night. CODE STATUS: Full. Thank you very much for this consultation. Internal Medicine will follow along as long as this patient remains hospitalized. /[id number]/MODL MTDD
[2017-05-31] MEDS: NS 1,000 ML IV SCH (05:36)
[2017-05-31] MEDS: PIPERACILLIN/TAZO 2.25 GM/DEX 50 ML IV SCH ×3 (05:36→19:06)
[2017-05-31 05:59] LABS: ABSOLUTE NRBC COUNT 0.02 10^3/uL (0-0.01); ADD DIFF? YES; ADD MORPH? NO; ATYPICAL LYMPHOCYTE FLAG 40 (0-99); FRAGMENT RBC FLAG 10 (0-99); HEMATOCRIT 37.1 % (40.0-51.0); HEMOGLOBIN 12.6 g/dL (13.7-17.5); LIPEMIA HEMOLYSIS FLAG 90 (0-99); MEAN CELL HEMOGLOBIN 31.1 pg (27.9-34.1); MEAN CELL VOLUME 91.6 fL (81.5-99.8); MEAN PLATELET VOLUME 11.2 fL (8.7-11.7); NRBC-AUTO% 0.2 % (0.0-0.2); PLATELET CLUMPS FLAG 10 (0-99); PLATELET COUNT 156 10^3/uL (150-400); RED BLOOD CELL COUNT 4.05 10^6/uL (4.40-6.38); RED CELL DISTRIBUTION WIDTH 14.2 % (11.5-15.2)
[2017-05-31 06:09] LABS: ALANINE AMINOTRANSFERASE 46 IU/L (21-72); ALKALINE PHOSPHATASE 41 IU/L (38-126); ASPARTATE AMINOTRANSFERASE 46 IU/L (17-59); BILIRUBIN,TOTAL 5.7 mg/dL (0.1-1.4); BILIRUBIN-CONJUGATED 4.9 mg/dL (0.0-0.5); BILIRUBIN-UNCONJUGATED 0.8 mg/dL (0.0-1.1); CALCIUM 7.8 mg/dL (8.5-10.4); CREATININE 2.3 mg/dL (0.7-1.3); GLOMERULAR FILTRATION RATE 27
[2017-05-31 06:23] LABS: ADD SCAN? NO; LEFT SHIFT FLG 110 (0-99)
[2017-05-31 06:58] LABS: ALBUMIN 2.1 g/dL (3.5-5.0); ANION GAP 11 mEq/L (8-16); CARBON DIOXIDE 22 mEq/l (22-31); CHLORIDE 108 mEq/L (97-110); GLUCOSE 131 mg/dL (70-100); POTASSIUM 4.1 mEq/L (3.5-5.2); SODIUM 141 mEq/L (134-144); TOTAL PROTEIN 4.4 g/dL (6.3-8.2)
[2017-05-31 07:25] LABS: PLATELET ESTIMATE ADEQUATE (ADEQ)
[2017-05-31 07:26] LABS: POLYCHROMASIA 1+
[2017-05-31] MEDS: buPROPion 100 MG TAB TUBE SCH ×3 (08:36→17:50)
[2017-05-31] MEDS: ALLOPURINOL 100 MG TAB PO SCH (08:36)
[2017-05-31] MEDS: clonazePAM 0.5 MG TAB TUBE SCH ×3 (08:36→17:48)
[2017-05-31] MEDS: CLOTRIMAZOLE 1% 15 GM CRTUBE TP SCH (08:36)
[2017-05-31] MEDS: APIXABAN 2.5 MG TAB PO SCH ×2 (08:36→22:25)
[2017-05-31] MEDS: FLUTICASONE NASAL 120 SPRAYS/16 GM MDI EACHNARE SCH (08:37)
[2017-05-31] MEDS: VANICREAM CREAM TP SCH ×2 (08:38→22:32)
[2017-05-31] MEDS: HYDROCORTISONE 100 MG/2 ML VIAL IVP SCH (08:38)
[2017-05-31] MEDS: TAMSULOSIN HCL 0.4 MG CAP PO SCH (08:38)
[2017-05-31] MEDS ORDERED: NON-FORMULARY NEW DRUG (Mirabegron [Myrbetriq] 25 MG) PO SCH (09:00)
--- NOTE | 2017-05-31 09:29 | PDINTPN ---
Operations Logistics Analyst Progress Note Assessment/Plan: Assessment/Plan: * Respiratory-stable on minimal oxygen * Probable aspiration-stable * Shock-resolved * DAISY- most c/w hypotension induced ATN. Improved * s/p Laparoscopic SOMMER- he has minimal erythema on his incision sites with slight eschar on his midline incision. * CHF- he is pacer dependent and has maintained capture. No WMAs on echo and his EF is 50-55 with normal RVF. 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 Not an issue for intubation. * VTE prophylaxis * Stress ulcer prophylaxis * PT/OT * Disposition-okay to transfer to floor Subjective: Sitting up in chair. Awake and alert. No current pain. Denies any shortness of breath, cough or production of sputum. Objective: Vital Signs Temp Pulse Resp BP Pulse Ox 36 C 61 12 129/56 H 98 05/31/17 04:47 05/31/17 09:00 05/31/17 09:00 05/31/17 09:00 05/31/17 09:00 Laboratory Results 05/31/17 05:30 05/31/17 05:30 05/30/17 05/31/17 06/01/17 05:59 05:59 05:59 Intake Total 3133 1511 Output Total 1999 1650 Balance 1133 -139 Laboratory Results 05/31/17 05:30 05/31/17 05:30 05/31/17 05/29/17 05:30 10:45 Patient Temperature 37.0 DEGREES DEGREES pCO2 33 mmHg L mmHg (34 - 38) pO2 63 mmHg L mmHg (65 - 75) Total CO2 25 mEq/L mEq/L (23 - 27) ABG pH 7.48 H (7.35 - 7.45) ABG HCO3 24 mEq/L mEq/L (22 - 26) ABG O2 Saturation 92 % % (92 - 95) ABG Base Excess 1.5 mEq/L mEq/L (-2.5 - 2.5) Total O2 Concentration 5.0 LITERS LITERS Calcium 7.8 mg/dL L mg/dL (8.5 - 10.4) Total Bilirubin 5.7 mg/dL H mg/dL (0.1 - 1.4) Conjugated Bilirubin 4.9 mg/dL H mg/dL (0.0 - 0.5) Unconjugated Bilirubin 0.8 mg/dL mg/dL (0.0 - 1.1) AST 46 IU/L IU/L (17 - 59) ALT 46 IU/L IU/L (21 - 72) Alkaline Phosphatase 41 IU/L IU/L (38 - 126) Total Protein 4.4 g/dL L g/dL (6.3 - 8.2) Albumin 2.1 g/dL L g/dL (3.5 - 5.0) Physical Exam - Physical Exam General Appearance: alert, no apparent distress EENT: PERRL/EOMI, normal ENT inspection, pharynx normal, TMs normal Neck: non-tender, full range of motion, supple, normal inspection Respiratory: crackles (Few basilar), No wheezing Cardiac/Chest: normal peripheral pulses, regular rate, rhythm Abdomen: normal bowel sounds, non-tender, soft Male Genitalia: deferred Rectal: deferred Skin: normal color, warm/dry Extremities: normal range of motion, non-tender, normal inspection, normal capillary refill Neuro/Psych: no motor/sensory deficits, alert, normal mood/affect, oriented x 3 ICD10 Worksheet Patient Problems: Problems Problem Status Onset Abdominal pain Acute Partial small bowel obstruction Acute
[2017-05-31] MEDS ORDERED: FUROSEMIDE 40 MG/4 ML VIAL IVP ONE (13:26)
--- NOTE | 2017-05-31 16:26 | HOSPPROG ---
Hospitalist Progress Note Assessment/Plan: * SBO s/p SOMMER * Acute respiratory failure - now extubated * Aspiration PNA with septic shock -IV Zosyn -off pressors * ARF - likely ATN due to sepsis/hypotension -creatinine up today -consult renal - d/w Dr. Patel * Volume overload - massive scrotal edema -IV lasix * Troponin bump - demand ischemia due to sepsis -no further work-up per cards * Afib/PCM -Eliquis at reduced dose until renal function improved * LAKESHA - CPAP * Increased LFT - likely due to sepsis -follow High risk Subjective: Scrotum very swollen, he can't control urine into urinal Objective: Vital Signs Temp Pulse Resp BP Pulse Ox 36 C 61 12 129/56 H 98 05/31/17 04:47 05/31/17 09:00 05/31/17 09:00 05/31/17 09:00 05/31/17 09:00 Laboratory Results 05/31/17 05:30 05/31/17 05:30 05/30/17 05/31/17 06/01/17 05:59 05:59 05:59 Intake Total 3133 1511 Output Total 1999 1650 Balance 1133 -139 - Physical Exam Constitutional: no apparent distress, appears nourished, not in pain Cardiovascular: regular rate and rhythym, no murmur, rub, or gallop, edema (4+ upper thigh and scrotum) Respiratory: no respiratory distress, no rales or rhonchi, clear to auscultation Gastrointestinal: normoactive bowel sounds, soft, non-tender abdomen, no palpable masses Skin: no rashes or abrasions, no fluctuance, no induration Neurologic: AAOx3, sensation intact bilaterally Psychiatric: interacting appropriately, not anxious, not encephalopathic, thought process linear ICD10 Worksheet Patient Problems: Problems Problem Status Onset Abdominal pain Acute Partial small bowel obstruction Acute
--- NOTE | 2017-05-31 16:58 | PDCONSULT ---
C T Tech Note: Assessment/Plan: DAISY: Pt with acute rise in Cr s/p lysis of adhesions surgery for worsening SBO, afterward had hypotension/shock and respiratory failure requiring intubation, low FeNa at the time, likely had ATN that is slowly improving, Cr peaked at 3.1 and came down to 2.1, is 2.3 today. Renal US with no acute findings, nonoliguric, lytes ok. - No emergent need for HD. - Will check UA, urine lytes, urine Cr, CK. - Would not recommend more IVFs given his significant volume overload. - IV Lasix given today, will give again tomorrow am. - Will continue to monitor. - Avoid hypotension and nephrotoxins. Hypervolemia: pt with marked volume overload, has good UOP. Lasix given today, will give again tomorrow am as above and continue to monitor. Thank you for the interesting consult. Nephrology will continue to follow, please call if you have any additional questions or concerns. H & P Stated Complaint: c/o generalized abd cramping x 1 day, states constipated x 3 days Time Seen by Provider: 05/23/17 05:05 HPI/ROS: HPI: Mr. Fernandez is an 87 yo M with h/o afib, HTN, gout, and recurrent diverticulitis presented on 05/23/17 with complaints of abdominal pain, nausea, and no BM. He was found to have a partial SBO, was initially treated medically but worsened over the next two days. On 05/25, pt was taken to OR for lysis of adhesions. Prior to that, his Cr was stable at his baseline at 0.8-1.0. After surgery, he had acute deterioration with significant hypotension/shock 05/25-05/28 , respiratory failure requiring intubation on 05/27, and DAISY with Cr up from 1.0 to 3.1 on 05/26, 3.0 on 05/28, and 2.1 on 05/30. Today, Cr was up from 2.1 to 2.3, prompting consult. He is now extubated and BP has stabilized, off IVFs. He notes that he has a lot of swelling, particularly in his scrotum, was given a dose of Lasix this afternoon. Pt states that he is urinating a lot but he has trouble capturing it in urinal due to his swelling. He is otherwise breathing comfortably on NC and feels that overall he is slowly improving. ROS: Positive per HPI, rest of 10-point ROS negative Source: Patient - Medical/Surgical History Hx Asthma: No Hx Chronic Respiratory Disease: No Hx Diabetes: No Hx Cardiac Disease: Yes Hx Renal Disease: No Hx Cirrhosis: No Hx Alcoholism: Yes Hx HIV/AIDS: No Hx Splenectomy or Spleen Trauma: No Other PMH: medical Complete Heart block, diverticulitis, depression, gout x 40 years ago, afib,prostate CA. Pacemaker, poor balance d/t badly frostbitten feet in [facility] - Family History Significant Family History: No pertinent family hx - Social History Smoking Status: Former smoker - Physical Exam Exam: General: alert and oriented, no acute distress Eyes; EOMI, PERRL OP: clear, MMM CV: RRR, +2/4 radial and dorsalis pedis pulses, +1 edema BLE Resp: CTA bilat, nonlabored respirations on NC, no crackles Abd: soft, NT Neuro: CN II-XII grossly intact, no asterixis : no nye catheter, scrotal edema Psych: cooperative, appropriate mood and affect Skin: C/D/I, no rash Constitutional: Initial Vital Signs Temperature (C) 36.3 C 05/23/17 04:50 Heart Rate 62 05/23/17 04:50 Respiratory Rate 16 05/23/17 04:50 Blood Pressure 141/77 H 05/23/17 04:50 O2 Sat (%) 92 05/23/17 04:50 O2 Delivery Mode Room Air O2 (L/minute) 1 Allergies/Adverse Reactions: cephalexin monohydrate [From Keflex] Allergy (Intermediate, Verified 05/23/17 04 :57) inflammed joints Home Medications: Medication Instructions Recorded traZODone [traZODONE 100MG (RX)] 200 mg PO HS 11/03/12 Dutasteride [Avodart 0.5 MG (*)] 0.5 mg PO HS 06/30/14 Tamsulosin HCl [Flomax 0.4 MG (*)] 0.4 mg PO DAILY 06/09/16 Allopurinol [Allopurinol 100 MG 100 mg PO DAILY 05/23/17 (*)] Apixaban [Eliquis] 5 mg PO BID 05/23/17 Asacol Ec 400mg Cap 400 mg PO TID PRN 05/23/17 Clotrimazole 1% [Lotrimin 1%] 1 sultana TP BID 05/23/17 Fluticasone Nasal [Flonase Nasal 2 sprays NASAL DAILY 05/23/17 [place] (RX)] Psyllium Husk (with Sugar) 1 each PO DAILY 05/23/17 [Metamucil Packet] Simvastatin [Zocor] 40 mg PO HS 05/23/17 Sodium Cl Nasal [G[place]vil [place] (*)] 1 spray NS Q2HRS 05/23/17 Vanicream [Vanicream (*)] 1 sultana TP DAILY 05/23/17 clonazePAM [Klonopin (*)] 0.5 mg PO TID@,,05/23/17 buPROPion SR [Wellbutrin 100mg SR 200 mg PO BID 05/26/17 (*)] Lab and Imaging 05/31/17 05:30 05/31/17 05:30 WBC 10.40 10^3/uL (3.80-9.50) H 05/31/17 05:30 RBC 4.05 10^6/uL (4.40-6.38) L 05/31/17 05:30 Hgb 12.6 g/dL (13.7-17.5) L 05/31/17 05:30 POC Hgb 16.3 gm/dL (13.7-17.5) 05/23/17 05:20 Hct 37.1 % (40.0-51.0) L 05/31/17 05:30 POC Hct 48 % (40-51) 05/23/17 05:20 MCV 91.6 fL (81.5-99.8) 05/31/17 05:30 MCH 31.1 pg (27.9-34.1) 05/31/17 05:30 MCHC 34.0 g/dL (32.4-36.7) 05/31/17 05:30 RDW 14.2 % (11.5-15.2) 05/31/17 05:30 Plt Count 156 10^3/uL (150-400) 05/31/17 05:30 MPV 11.2 fL (8.7-11.7) 05/31/17 05:30 Neut % (Auto) Not Reported 05/31/17 05:30 Lymph % (Auto) Not Reported 05/31/17 05:30 [place] % (Auto) Not Reported 05/31/17 05:30 Eos % (Auto) Not Reported 05/31/17 05:30 Baso % (Auto) Not Reported 05/31/17 05:30 Nucleat RBC Rel Count 0.2 % (0.0-0.2) 05/31/17 05:30 Absolute Neuts (auto) Not Reported 05/31/17 05:30 Absolute Lymphs (auto) Not Reported 05/31/17 05:30 Absolute Monos (auto) Not Reported 05/31/17 05:30 Absolute Eos (auto) Not Reported 05/31/17 05:30 Absolute Basos (auto) Not Reported 05/31/17 05:30 Absolute Nucleated RBC 0.02 10^3/uL (0-0.01) H 05/31/17 05:30 Immature Gran % Not Reported 05/31/17 05:30 Seg Neutrophils % 87 % 05/31/17 05:30 Band Neutrophils % 2 % 05/31/17 05:30 Lymphocytes % 1 % 05/31/17 05:30 Monocytes % 8 % 05/31/17 05:30 Basophils % 1 % 05/31/17 05:30 Metamyelocytes % 3 % 05/27/17 13:00 Myelocytes % 1 % 05/31/17 05:30 Immature Gran # Not Reported 05/31/17 05:30 Absolute Seg Neuts 9.05 10^/uL (1.70-6.50) H 05/31/17 05:30 Absolute Band Neuts 0.21 10^3/uL (0.00-0.70) 05/31/17 05:30 Absolute Lymphocytes 0.10 10^3/uL (1.00-3.00) L 05/31/17 05:30 Absolute Monocytes 0.83 10^3/uL (0.30-0.80) H 05/31/17 05:30 Absolute Basophils 0.10 10^3/uL (0.02-0.10) 05/31/17 05:30 Absolute Metamyelocyte 0.24 10^3/mL (0.00-0.00) H 05/27/17 13:00 Absolute Myelocytes 0.10 10^3/mL (0.00-0.00) H 05/31/17 05:30 Nucleated RBCs 1 /100 WBC (0-0) H 05/31/17 05:30 RBC/WBC/PLT Morphology NORMAL (NORMAL) 05/28/17 04:15 Toxic Vacuolation PRESENT H 05/26/17 05:30 Dohle Bodies PRESENT H 05/28/17 04:15 Platelet Estimate ADEQUATE (ADEQ) 05/31/17 05:30 Polychromasia 1+ H 05/31/17 05:30 Echinocytes 1+ H 05/30/17 04:27 Smear Review By Monroe ORELLANA MD 05/31/17 05:30 POC Blood Source OTHER 05/27/17 15:11 Puncture Site RIGHT RADIAL 05/29/17 10:45 Patient Temperature 37.0 DEGREES 05/29/17 10:45 POC pH 7.33 (7.35-7.45) L 05/27/17 15:11 POC pCO2 48 mmHg (34-38) H 05/27/17 15:11 pCO2 33 mmHg (34-38) L 05/29/17 10:45 POC pO2 74 mmHg (65-75) 05/27/17 15:11 pO2 63 mmHg (65-75) L 05/29/17 10:45 POC HCO3 26 mEq/L (22-26) 05/27/17 15:11 Total CO2 25 mEq/L (23-27) 05/29/17 10:45 POC Total CO2 27 mEq/L (23-27) 05/27/17 15:11 POC Base Excess -1.0 mEq/L (-2.5-2.5) 05/27/17 15:11 POC O2 Sat (Calc) 93 % (92-95) 05/27/17 15:11 ABG pH 7.48 (7.35-7.45) H 05/29/17 10:45 ABG PO2/FiO2 Ratio 190 RATIO 05/29/17 05:12 ABG HCO3 24 mEq/L (22-26) 05/29/17 10:45 ABG O2 Sat (Calculated) Cancelled 05/26/17 14:57 ABG O2 Saturation 92 % (92-95) 05/29/17 10:45 ABG Base Excess 1.5 mEq/L (-2.5-2.5) 05/29/17 10:45 ABG Lactic Acid 2.6 mmol/L (0.5-1.6) H 05/26/17 14:57 VBG Lactic Acid 1.4 mmol/L (0.7-2.1) 05/31/17 05:30 Total O2 Concentration 5.0 LITERS 05/29/17 10:45 O2 Concentration % 40 % (0-100) 05/29/17 05:12 Respiration Rate REJ 05/27/17 14:25 Actual Respiration Rate 16 05/29/17 05:12 Set Respiration Rate 15 05/28/17 19:46 SIMV YES 05/28/17 19:46 Assist Control REJ 05/27/17 14:25 Vent Rate REJ 05/27/17 14:25 POC FiO2 40 % (0-100) 05/27/17 15:11 Inspiratory Time REJ 05/27/17 14:25 Expiratory Pressure REJ 05/27/17 14:25 Tidal Volume 550 05/28/17 19:46 End Tidal CO2 31 05/29/17 05:12 PEEP 5 05/29/17 05:12 Inspiratory Pressure REJ 05/27/17 14:25 Peak Inspir Pressure REJ 05/27/17 14:25 Pressure Support 7 05/29/17 05:12 Pressure Control REJ 05/27/17 14:25 CPAP YES 05/29/17 05:12 BiPAP REJ 05/27/17 14:25 Mode BiPAP REJ 05/27/17 14:25 Inspir/Expir Ratio REJ 05/27/17 14:25 POC Sodium 139 mEq/L (134-144) 05/23/17 05:20 Sodium 141 mEq/L (134-144) 05/31/17 05:30 POC Potassium 4.4 mEq/L (3.3-5.0) 05/23/17 05:20 Potassium 4.1 mEq/L (3.5-5.2) 05/31/17 05:30 POC Chloride 97 mEq/L (97-110) 05/23/17 05:20 Chloride 108 mEq/L (97-110) 05/31/17 05:30 Carbon Dioxide 22 mEq/l (22-31) 05/31/17 05:30 Anion Gap 11 mEq/L (8-16) 05/31/17 05:30 POC BUN 14 mg/dL (7-23) 05/23/17 05:20 BUN 73 mg/dL (7-23) H 05/31/17 05:30 Creatinine 2.3 mg/dL (0.7-1.3) H 05/31/17 05:30 POC Creatinine 1.1 mg/dL (0.7-1.3) 05/23/17 05:20 Estimated GFR 27 05/31/17 05:30 Glucose 131 mg/dL (70-100) H 05/31/17 05:30 POC Glucose 142 mg/dL (70-100) H 05/26/17 10:13 Calcium 7.8 mg/dL (8.5-10.4) L 05/31/17 05:30 Total Bilirubin 5.7 mg/dL (0.1-1.4) H 05/31/17 05:30 Conjugated Bilirubin 4.9 mg/dL (0.0-0.5) H 05/31/17 05:30 Unconjugated Bilirubin 0.8 mg/dL (0.0-1.1) 05/31/17 05:30 AST 46 IU/L (17-59) 05/31/17 05:30 ALT 46 IU/L (21-72) 05/31/17 05:30 Alkaline Phosphatase 41 IU/L (38-126) 05/31/17 05:30 Troponin I 0.250 ng/mL (0-0.034) H 05/26/17 19:50 NT-Pro-B Natriuret Pep 69075 pg/mL (0-450) H 05/26/17 14:21 Total Protein 4.4 g/dL (6.3-8.2) L 05/31/17 05:30 Albumin 2.1 g/dL (3.5-5.0) L 05/31/17 05:30 Lipase 26.0 IU/L (23-300) 05/23/17 05:24 Procalcitonin 91.04 ng/mL (0.02-0.10) H 05/28/17 04:15 Urine Color KHANH 05/26/17 21:15 Urine Appearance MODERATELY TURBID 05/26/17 21:15 Urine pH 5.0 (5.0-7.5) 05/26/17 21:15 Ur Specific Flora 1.026 (1.002-1.030) 05/26/17 21:15 Urine Protein 2+ (NEGATIVE) H 05/26/17 21:15 Urine Ketones NEGATIVE (NEGATIVE) 05/26/17 21:15 Urine Blood 1+ (NEGATIVE) H 05/26/17 21:15 Urine Nitrate NEGATIVE (NEGATIVE) 05/26/17 21:15 Urine Bilirubin NEGATIVE (NEGATIVE) 05/26/17 21:15 Urine Urobilinogen 4.0 EU (0.2-1.0) H 05/26/17 21:15 Ur Leukocyte Esterase NEGATIVE (NEGATIVE) 05/26/17 21:15 Urine RBC 10-15 /hpf (0-3) H 05/26/17 21:15 Urine WBC 5-10 /hpf (0-3) H 05/26/17 21:15 Ur Epithelial Cells TRACE /lpf (NONE-1+) 05/26/17 21:15 Amorphous Sediment PRESENT /hpf (NONE-1+) 05/26/17 21:15 Urine Bacteria 1+ /hpf (NONE SEEN) H 05/26/17 21:15 Hyaline Casts 25-50 /lpf (0-1) H 05/26/17 21:15 Urine Mucus TRACE /lpf (NONE-1+) 05/26/17 21:15 Ur Random Creatinine 115.5 mg/dL 05/26/17 16:12 Ur Random Sodium 8 mEq/L (30-90) L 05/26/17 21:15 Urine Glucose 1+ (NEGATIVE) H 05/26/17 21:15 Random Vancomycin 10.3 mcg/mL (0.0-40.0) 05/28/17 06:05
[2017-05-31 18:27] LABS: POTASSIUM 3.4 mEq/L (3.5-5.2)
[2017-05-31 18:58] LABS: COLOR YELLOW; LEUKOCYTE ESTERASE,URINE NEGATIVE (NEGATIVE); NITRITE,URINE NEGATIVE (NEGATIVE)
[2017-05-31 19:04] LABS: BACTERIA TRACE /hpf (NONE SEEN); MUCUS TRACE /lpf (NONE-1+)
[2017-05-31 19:07] LABS: RANDOM URINE PROTEIN 19 mg/dL (0-11)
--- NOTE | 2017-05-31 22:05 | SOAPPROG ---
SOAP Progress Note Assessment/Plan: Assessment/Plan: 87-year-old gentleman postop day 6. Status post laparoscopic lysis of adhesions with repair of enterotomy. The patient became confused postoperatively and then went into oliguric renal failure and subsequently became hypotensive. Shock ?septic responded to vasopressor medication and fluid hydration. He is left acidotic his confusion has abated. Tolerating maps in the 60-65 range for blood pressure. Aspirated Intubated with normal bronchoscopy 05/27 Extubated NGT out tolerating diet Walked with assist Cr 2.3 CTA (rhochi from airways transmitted) Regular rate and rhythm paced rhythm on EKG strip Abdomen soft distended NG tube replaced with 1500 cc out last Patient has minimal erythema around incisions likely irritation as opposed infection. Left flank edematous. No peripheral edema Impression/plan: CT no definitive leak. Small intra abdominal collection white count normal possible sepsis from this. No need for intra-abdominal exploration or IR drainage. Hypovolemic fluid challenge Supportive care for BP and renal failure (DAISY). ? adrenal insufficiency Continue supportive care Advance diet Hospital medicine/nephrology consulted for after ICU Restart Eliquis and home meds tomorrow. 05/31/17 22:04 Objective: Vital Signs Temp Pulse Resp BP Pulse Ox 36.4 C 61 16 136/65 H 92 05/31/17 21:58 05/31/17 21:58 05/31/17 21:58 05/31/17 21:58 05/31/17 21:58 Laboratory Results 05/31/17 05:30 05/31/17 17:52 05/30/17 05/31/17 06/01/17 05:59 05:59 05:59 Intake Total 3133 1511 1600 Output Total 1999 1650 1999 Balance 1133 -139 -400 ICD10 Worksheet Patient Problems: Problems Problem Status Onset Abdominal pain Acute Partial small bowel obstruction Acute
[2017-05-31] MEDS: traZODone 100 MG TAB TUBE SCH (22:25)
[2017-05-31] MEDS: ATORVASTATIN CALCIUM 20 MG TAB PO SCH (22:26)
[2017-05-31] MEDS: DUTASTERIDE 0.5 MG CAP PO SCH (22:26)
[2017-05-31] MEDS: HYDROmorphONE/DILAUDID 1 MG/ML SYR IVP PRN (22:26)
[2017-06-01] MEDS: PIPERACILLIN/TAZO 2.25 GM/DEX 50 ML IV SCH ×5 (00:35→23:47)
[2017-06-01] MEDS: CLOTRIMAZOLE 1% 15 GM CRTUBE TP SCH ×3 (00:52→20:27)
[2017-06-01] MEDS ORDERED: POTASSIUM CL 10 MEQ TAB PO ONE ×3 (01:18→19:47)
[2017-06-01 05:28] LABS: ALANINE AMINOTRANSFERASE 50 IU/L (21-72); ALBUMIN 2.2 g/dL (3.5-5.0); ALKALINE PHOSPHATASE 62 IU/L (38-126); ANION GAP 11 mEq/L (8-16); ASPARTATE AMINOTRANSFERASE 43 IU/L (17-59); BILIRUBIN,TOTAL 5.4 mg/dL (0.1-1.4); BILIRUBIN-CONJUGATED 4.6 mg/dL (0.0-0.5); BILIRUBIN-UNCONJUGATED 0.8 mg/dL (0.0-1.1); CALCIUM 7.8 mg/dL (8.5-10.4); CARBON DIOXIDE 23 mEq/l (22-31); CHLORIDE 107 mEq/L (97-110); CREATININE 2.5 mg/dL (0.7-1.3); GLOMERULAR FILTRATION RATE 25; GLUCOSE 110 mg/dL (70-100); POTASSIUM 3.5 mEq/L (3.5-5.2); SODIUM 141 mEq/L (134-144); TOTAL PROTEIN 4.4 g/dL (6.3-8.2)
[2017-06-01] MEDS: HYDROmorphONE/DILAUDID 1 MG/ML SYR IVP PRN ×2 (06:13→20:26)
[2017-06-01 06:32] LABS: ABSOLUTE NRBC COUNT 0.03 10^3/uL (0-0.01); ADD DIFF? YES; ADD MORPH? NO; ADD SCAN? YES; ATYPICAL LYMPHOCYTE FLAG 50 (0-99); FRAGMENT RBC FLAG 0 (0-99); LIPEMIA HEMOLYSIS FLAG 90 (0-99); MEAN CELL HEMOGLOBIN 31.1 pg (27.9-34.1); MEAN CELL HEMOGLOBIN CONCENTR. 34.1 g/dL (32.4-36.7); MEAN CELL VOLUME 91.1 fL (81.5-99.8); MEAN PLATELET VOLUME 10.7 fL (8.7-11.7); NRBC-AUTO% 0.2 % (0.0-0.2); PLATELET CLUMPS FLAG 0 (0-99); PLATELET COUNT 200 10^3/uL (150-400); RED CELL DISTRIBUTION WIDTH 14.5 % (11.5-15.2)
[2017-06-01 06:35] LABS: LEFT SHIFT FLG 170 (0-99)
[2017-06-01 07:47] LABS: SCAN POSITIVE
[2017-06-01 07:57] LABS: PLATELET ESTIMATE ADEQUATE (ADEQ); POLYCHROMASIA 1+
[2017-06-01] MEDS: buPROPion 100 MG TAB TUBE SCH ×3 (08:26→18:02)
[2017-06-01] MEDS: ALLOPURINOL 100 MG TAB PO SCH (08:26)
[2017-06-01] MEDS: clonazePAM 0.5 MG TAB TUBE SCH ×3 (08:26→18:01)
[2017-06-01] MEDS: TAMSULOSIN HCL 0.4 MG CAP PO SCH (08:26)
[2017-06-01] MEDS: APIXABAN 2.5 MG TAB PO SCH ×2 (08:26→20:26)
[2017-06-01] MEDS: FLUTICASONE NASAL 120 SPRAYS/16 GM MDI EACHNARE SCH (08:28)
[2017-06-01] MEDS ORDERED: FUROSEMIDE 40 MG/4 ML VIAL IVP ONE (09:00)
--- NOTE | 2017-06-01 10:48 | SOAPPROG ---
SOAP Progress Note Assessment/Plan: Assessment:Plan: ARF-likely ATN -ultrasound with normal-sized kidneys, no hydronephrosis -Debbie = 54 -creatinine up slightly -volume overload with anasarca -will continue IV lasix, scheduled Bid -urinalysis with dipstick hematuria, no proteinuria -Up/Uc around 1 -will check for paraprotein Ansarca-elevate scrotum and extremities 06/01/17 10:49 Subjective: complains of scrotal edema, incontinence Objective: Vital Signs Temp Pulse Resp BP Pulse Ox 36.4 C 60 1 L 139/67 H 90 L 06/01/17 07:30 06/01/17 07:30 06/01/17 07:30 06/01/17 07:30 06/01/17 07:30 Microbiology 05/26/17 15:15 Blood Culture - Final Blood Laboratory Results 06/01/17 04:50 06/01/17 04:37 05/31/17 06/01/17 06/02/17 05:59 05:59 05:59 Intake Total 1511 1600 Output Total 1650 2000 Balance -139 -400 Physical Exam - Physical Exam General Appearance: alert, mild distress EENT: normal ENT inspection Neck: normal inspection Respiratory: decreased breath sounds Cardiac/Chest: regular rate, rhythm Abdomen: normal bowel sounds Extremities: swelling (anasarca with severe scrotal and penile edema) ICD10 Worksheet Patient Problems: Problems Problem Status Onset Abdominal pain Acute Partial small bowel obstruction Acute
--- NOTE | 2017-06-01 11:34 | SOAPPROG ---
SOAP Progress Note Assessment/Plan: Assessment: Patient resting in chair. Mostly complains of swollen genitals. No abdominal complaints. Pain controlled. Denies SOB or CP. Passing gas. afeb, BP 130/60s, HR 60s, 90% 1LNC, A&O x 3, Abd distended, non tender, incisions: umbilical incision with minimal serosanguinous drainage- no expressible drainage, no purulence. all other incisions clean, dry, intact. Scrotum/ Penis + edema, LE + edema. WBC 14.6 (10.4), H/H 14/41 (12.6/37.1), Plt 200 (156), lytes normal, BUN/ Creat 83/2.5 (73/2.3), TB 5.4 (5.7), Gabriel 4.6 (4.9), LFTs normal, UA /- ok A/ P: POD 7 s/p laparoscopic lysis of adhesions with repair of enterotomy. Elev WBC today- afebrile- UA ok/ Incisions ok- follow. DAISY management per renal. Diuresis per renal, home meds restarted, scrotal support. Continue supportive care. Plan: 06/01/17 11:34 06/01/17 11:49 Objective: Vital Signs Temp Pulse Resp BP Pulse Ox 36.4 C 60 1 L 139/67 H 90 L 06/01/17 07:30 06/01/17 07:30 06/01/17 07:30 06/01/17 07:30 06/01/17 07:30 Microbiology 05/26/17 15:15 Blood Culture - Final Blood Laboratory Results 06/01/17 04:50 06/01/17 04:37 05/31/17 06/01/17 06/02/17 05:59 05:59 05:59 Intake Total 1511 1600 Output Total 1650 1999 Balance -139 -400 ICD10 Worksheet Patient Problems: Problems Problem Status Onset Abdominal pain Acute Partial small bowel obstruction Acute
[2017-06-01] MEDS: FUROSEMIDE 40 MG/4 ML VIAL IVP SCH ×2 (13:28→15:54)
--- NOTE | 2017-06-01 16:43 | SOAPPROG ---
SOAP Progress Note Assessment/Plan: Assessment/Plan: 87-year-old gentleman postop day 6. Status post laparoscopic lysis of adhesions with repair of enterotomy. The patient became confused postoperatively and then went into oliguric renal failure and subsequently became hypotensive. Shock ?septic responded to vasopressor medication and fluid hydration. He is left acidotic his confusion has abated. Tolerating maps in the 60-65 range for blood pressure. Aspirated Intubated with normal bronchoscopy 05/27 Abd benign U/A negative 05/31 leucocytosis fluid overload gentle diuresis if possible OOB ambulate/encourage IS/PO 05/31/17 22:04 06/01/17 16:42 Objective: Vital Signs Temp Pulse Resp BP Pulse Ox 36.4 C 60 18 118/56 L 92 06/01/17 15:46 06/01/17 15:46 06/01/17 15:46 06/01/17 15:46 06/01/17 15:46 Microbiology 05/26/17 15:15 Blood Culture - Final Blood Laboratory Results 06/01/17 04:50 06/01/17 04:37 05/31/17 06/01/17 06/02/17 05:59 05:59 05:59 Intake Total 1511 1600 Output Total 1650 1999 Balance -139 -400 ICD10 Worksheet Patient Problems: Problems Problem Status Onset Abdominal pain Acute Partial small bowel obstruction Acute
[2017-06-01 19:34] LABS: POTASSIUM 3.3 mEq/L (3.5-5.2)
--- NOTE | 2017-06-01 20:07 | HOSPPROG ---
Hospitalist Progress Note Assessment/Plan: * SBO s/p SOMMER * Acute respiratory failure - now extubated * Aspiration PNA with septic shock -IV Zosyn day 7 - will recheck x-ray could consider discontinue antibiotics soon although white blood cell count is up today * ARF - likely ATN due to sepsis/hypotension -creatinine stable - renal following * Volume overload - massive scrotal edema -IV lasix * Troponin bump - demand ischemia due to sepsis -no further work-up per cards * Afib/PCM -Eliquis at reduced dose until renal function improved * LAKESHA - CPAP * Increased LFT - likely due to sepsis -follow Subjective: complaining of scrotal edema. Generalized weakness Objective: Vital Signs Temp Pulse Resp BP Pulse Ox 36.4 C 60 18 118/56 L 92 06/01/17 15:46 06/01/17 15:46 06/01/17 15:46 06/01/17 15:46 06/01/17 15:46 Microbiology 05/26/17 15:15 Blood Culture - Final Blood Laboratory Results 06/01/17 04:50 06/01/17 18:20 05/31/17 06/01/17 06/02/17 05:59 05:59 05:59 Intake Total 1511 1600 Output Total 1650 2000 Balance -139 -400 - Physical Exam Constitutional: no apparent distress, appears nourished, not in pain Eyes: anicteric sclera, EOMI Ears, Nose, Mouth, Throat: moist mucous membranes, hearing normal Cardiovascular: regular rate and rhythym, no murmur, rub, or gallop Respiratory: no respiratory distress, no rales or rhonchi, clear to auscultation Gastrointestinal: normoactive bowel sounds, soft, non-tender abdomen Genitourinary: other ( scrotal edema) Skin: warm Musculoskeletal: other ( anasarca) Neurologic: AAOx3 Psychiatric: interacting appropriately, not anxious, not encephalopathic, thought process linear ICD10 Worksheet Patient Problems: Problems Problem Status Onset Abdominal pain Acute Partial small bowel obstruction Acute
[2017-06-01] MEDS: ATORVASTATIN CALCIUM 20 MG TAB PO SCH (20:26)
[2017-06-01] MEDS: DUTASTERIDE 0.5 MG CAP PO SCH (20:26)
[2017-06-01] MEDS: traZODone 100 MG TAB TUBE SCH (20:26)
[2017-06-02 05:59] LABS: ABSOLUTE NRBC COUNT 0.02 10^3/uL (0-0.01); ADD DIFF? YES; ADD MORPH? NO; ADD SCAN? NO; ATYPICAL LYMPHOCYTE FLAG 40 (0-99); FRAGMENT RBC FLAG 0 (0-99); HEMATOCRIT 38.1 % (40.0-51.0); HEMOGLOBIN 13.3 g/dL (13.7-17.5); LEFT SHIFT FLG 90 (0-99); LIPEMIA HEMOLYSIS FLAG 90 (0-99); MEAN CELL HEMOGLOBIN 31.3 pg (27.9-34.1); MEAN CELL HEMOGLOBIN CONCENTR. 34.9 g/dL (32.4-36.7); MEAN CELL VOLUME 89.6 fL (81.5-99.8); MEAN PLATELET VOLUME 10.7 fL (8.7-11.7); NRBC-AUTO% 0.1 % (0.0-0.2); PLATELET CLUMPS FLAG 0 (0-99); PLATELET COUNT 215 10^3/uL (150-400); RED BLOOD CELL COUNT 4.25 10^6/uL (4.40-6.38); RED CELL DISTRIBUTION WIDTH 14.3 % (11.5-15.2)
[2017-06-02] MEDS: PIPERACILLIN/TAZO 2.25 GM/DEX 50 ML IV SCH ×2 (06:04→18:10)
[2017-06-02 06:24] LABS: ANION GAP 11 mEq/L (8-16); CALCIUM 7.6 mg/dL (8.5-10.4); CARBON DIOXIDE 26 mEq/l (22-31); CHLORIDE 104 mEq/L (97-110); CREATININE 2.6 mg/dL (0.7-1.3); GLOMERULAR FILTRATION RATE 23; GLUCOSE 117 mg/dL (70-100); MAGNESIUM 2.1 mg/dL (1.6-2.3); POTASSIUM 3.4 mEq/L (3.5-5.2); SODIUM 141 mEq/L (134-144)
[2017-06-02 07:17] LABS: PLATELET ESTIMATE ADEQUATE (ADEQ); POLYCHROMASIA 1+
[2017-06-02] MEDS ORDERED: POTASSIUM CL 10 MEQ TAB PO ONE ×2 (07:19→20:12)
[2017-06-02] MEDS: buPROPion 100 MG TAB TUBE SCH ×3 (10:37→18:10)
[2017-06-02] MEDS: FUROSEMIDE 40 MG/4 ML VIAL IVP SCH ×2 (10:37→15:02)
[2017-06-02] MEDS: APIXABAN 2.5 MG TAB PO SCH ×2 (10:37→13:57)
[2017-06-02] MEDS: ALLOPURINOL 100 MG TAB PO SCH (10:38)
[2017-06-02] MEDS: CLOTRIMAZOLE 1% 15 GM CRTUBE TP SCH ×2 (10:38→21:46)
[2017-06-02] MEDS: VANICREAM CREAM TP SCH (10:38)
[2017-06-02] MEDS: TAMSULOSIN HCL 0.4 MG CAP PO SCH (10:38)
[2017-06-02] MEDS: FLUTICASONE NASAL 120 SPRAYS/16 GM MDI EACHNARE SCH (10:38)
[2017-06-02] MEDS: clonazePAM 0.5 MG TAB TUBE SCH ×3 (10:38→18:10)
[2017-06-02] MEDS ORDERED: POTASSIUM CL 10 MEQ TAB ONE (10:43)
--- NOTE | 2017-06-02 12:32 | SOAPPROG ---
SOAP Progress Note Assessment/Plan: Assessment:no complaints. pain controlled. no nausea or vomiting. afebrile. comfortable. abd dist, soft. midline incis with fibrinous exudate and hyperemia. no purulence. notable penile/scrotal edema and lower extr edema. wbc 20. s/p mone/enterotomy repair/arf/resolved resp failure. clinically doing well. CT today to r/o abscess given progressively increasing leucocytosis. discussed with hospitalist and family at bedside. Plan: 05/24/17 07:43 06/02/17 12:30 Objective: Vital Signs Temp Pulse Resp BP Pulse Ox 36.2 C 61 18 121/53 H 92 06/02/17 08:00 06/02/17 08:00 06/02/17 08:00 06/02/17 08:00 06/02/17 08:00 Microbiology 05/26/17 15:15 Blood Culture - Final Blood Laboratory Results 06/02/17 05:50 06/02/17 05:50 06/01/17 06/02/17 06/03/17 05:59 05:59 05:59 Intake Total 1600 Output Total 2000 Balance -400 ICD10 Worksheet Patient Problems: Problems Problem Status Onset Abdominal pain Acute Partial small bowel obstruction Acute
--- NOTE | 2017-06-02 13:55 | SOAPPROG ---
SOAP Progress Note Assessment/Plan: Assessment: 1. DAISY. Likely ATN due to postop hypotension. B/l creat 0.8. Creat up slightly today, 2.6. Give albumin. 2. Anasarca. Continue diuresis with IV lasix BID for now. Give albumin as above. Will take a lot of time for this to resolve. 3. Leukocytosis. Rising x several days. CT done this am to eval for abdominal process. Results pending. Plan: 06/02/17 13:53 06/02/17 13:55 06/02/17 13:56 Subjective: C/o swelling. Objective: Vital Signs Temp Pulse Resp BP Pulse Ox 37 C 60 20 131/68 H 94 06/02/17 12:31 06/02/17 12:31 06/02/17 12:31 06/02/17 12:31 06/02/17 12:31 Laboratory Results 06/02/17 05:50 06/02/17 05:50 06/01/17 06/02/17 06/03/17 05:59 05:59 05:59 Intake Total 1600 Output Total 2000 Balance -400 In bed, NAD, diaphoretic with moist clothing/bedding RRR, no m/g/r CTAB Abdom obese, nontender 4+ scrotal/LE edema, +UE edema ICD10 Worksheet Patient Problems: Problems Problem Status Onset Partial small bowel obstruction Acute Abdominal pain Acute
[2017-06-02] MEDS: ALBUMIN 25% 100 ML IV SCH ×2 (15:02→21:38)
--- NOTE | 2017-06-02 15:08 | HOSPPROG ---
Hospitalist Progress Note Assessment/Plan: * SBO s/p SOMMER with worsening leukocytosis and fluid collection on CT -case discussed with Dr. Bridges who is ordering a drain * Acute respiratory failure - now extubated with Aspiration PNA and septic shock -I reviewed cxr negative for pna -cont zosyn for now * ARF - likely ATN due to sepsis/hypotension -creatinine stable - renal following * Volume overload - massive scrotal edema -IV lasix * Troponin bump - demand ischemia due to sepsis -no further work-up per cards * Afib/PCM -Eliquis at reduced dose until renal function improved * LAKESHA - CPAP * Increased LFT - likely due to sepsis -follow will continue to follow along with you Subjective: reports persistent scrotal swelling. poor appetite. mild abd pain Objective: Vital Signs Temp Pulse Resp BP Pulse Ox 37 C 60 20 131/68 H 94 06/02/17 12:31 06/02/17 12:31 06/02/17 12:31 06/02/17 12:31 06/02/17 12:31 Laboratory Results 06/02/17 05:50 06/02/17 05:50 06/01/17 06/02/17 06/03/17 05:59 05:59 05:59 Intake Total 1600 Output Total 2000 Balance -400 - Physical Exam Constitutional: chronically ill appearing Cardiovascular: regular rate and rhythym, no murmur, rub, or gallop Respiratory: no respiratory distress, no rales or rhonchi, clear to auscultation Gastrointestinal: normoactive bowel sounds, soft, non-tender abdomen, no palpable masses, distension, No guarding, No rebound Genitourinary: no bladder fullness, no bladder tenderness, no renal bruits Skin: no rashes or abrasions, no fluctuance, no induration Neurologic: AAOx3, sensation intact bilaterally ICD10 Worksheet Patient Problems: Problems Problem Status Onset Partial small bowel obstruction Acute Abdominal pain Acute
[2017-06-02 19:35] LABS: POTASSIUM 3.1 mEq/L (3.5-5.2)
[2017-06-02] MEDS: DUTASTERIDE 0.5 MG CAP PO SCH (21:38)
[2017-06-02] MEDS: ATORVASTATIN CALCIUM 20 MG TAB PO SCH (21:38)
[2017-06-02] MEDS: traZODone 100 MG TAB TUBE SCH (21:39)
[2017-06-03] MEDS: PIPERACILLIN/TAZO 2.25 GM/DEX 50 ML IV SCH ×4 (00:12→17:42)
[2017-06-03] MEDS: ALBUMIN 25% 100 ML IV SCH ×4 (01:04→20:15)
[2017-06-03 05:57] LABS: ALBUMIN 2.5 g/dL (3.5-5.0); ANION GAP 11 mEq/L (8-16); CALCIUM 7.7 mg/dL (8.5-10.4); CARBON DIOXIDE 27 mEq/l (22-31); CHLORIDE 104 mEq/L (97-110); CREATININE 2.5 mg/dL (0.7-1.3); GLOMERULAR FILTRATION RATE 25; GLUCOSE 106 mg/dL (70-100); POTASSIUM 3.4 mEq/L (3.5-5.2); SODIUM 142 mEq/L (134-144)
[2017-06-03] MEDS: POTASSIUM Cl (KCl) 100 ML IV SCH ×3 (06:16→08:50)
[2017-06-03] MEDS: HYDROmorphONE/DILAUDID 1 MG/ML SYR IVP PRN ×2 (06:43→09:11)
[2017-06-03] MEDS: ALLOPURINOL 100 MG TAB PO SCH (07:37)
[2017-06-03] MEDS: buPROPion 100 MG TAB TUBE SCH ×3 (07:37→17:41)
[2017-06-03] MEDS: clonazePAM 0.5 MG TAB TUBE SCH ×3 (07:37→17:41)
[2017-06-03] MEDS: FUROSEMIDE 40 MG/4 ML VIAL IVP SCH ×2 (07:37→15:53)
[2017-06-03] MEDS: TAMSULOSIN HCL 0.4 MG CAP PO SCH (07:37)
[2017-06-03] MEDS: FLUTICASONE NASAL 120 SPRAYS/16 GM MDI EACHNARE SCH (08:50)
[2017-06-03] MEDS: CLOTRIMAZOLE 1% 15 GM CRTUBE TP SCH ×2 (08:51→21:24)
[2017-06-03] MEDS: VANICREAM CREAM TP SCH (08:52)
--- NOTE | 2017-06-03 09:45 | SOAPPROG ---
SOAP Progress Note Assessment/Plan: Assessment: c/o scrotal pain/swelling. min abd pain. afebrile. comfortable. abd soft, incis clean - wound exudate/hyperemia unchanged. for CT drainage today. discussed procedure with patient and family at bedside. eliquis on hold prior - can resume postprocedure. hypo K - supplementation in process. resume diet after procedure as well. no complaints. pain controlled. no nausea or vomiting. afebrile. comfortable. abd dist, soft. midline incis with fibrinous exudate and hyperemia. no purulence. notable penile/scrotal edema and lower extr edema. wbc 20. s/p mone/enterotomy repair/arf/resolved resp failure. clinically doing well. CT today to r/o abscess given progressively increasing leucocytosis. discussed with hospitalist and family at bedside. Plan: 05/24/17 07:43 06/02/17 12:30 06/03/17 09:44 Objective: Vital Signs Temp Pulse Resp BP Pulse Ox 36.8 C 68 18 109/48 L 89 L 06/03/17 08:00 06/03/17 08:00 06/03/17 08:00 06/03/17 08:00 06/03/17 08:00 Laboratory Results 06/02/17 05:50 06/03/17 05:30 06/02/17 06/03/17 06/04/17 05:59 05:59 05:59 Intake Total 210 Balance 210 ICD10 Worksheet Patient Problems: Problems Problem Status Onset Abdominal pain Acute Partial small bowel obstruction Acute
[2017-06-03 10:17] LABS: APTT 29.8 SEC (23.0-38.0); INR 1.4 (0.83-1.16); PROTIME(PATIENT) 17.1 SEC (12.0-15.0)
[2017-06-03] MEDS ORDERED: fentaNYL 100 MCG/2 ML INJ ONE (10:30)
[2017-06-03] MEDS ORDERED: NALOXONE HCL 0.4 MG/ML INJ ONE (10:30)
[2017-06-03] MEDS ORDERED: FLUMAZENIL 0.5 MG/5 ML MDV IVP ONE (10:30)
[2017-06-03] MEDS ORDERED: MIDAZOLAM 2 MG/2 ML VIAL ONE (10:31)
--- NOTE | 2017-06-03 11:09 | SOAPPROG ---
[facility] Progress Note Assessment/Plan: Assessment: 87 yo M initially presented with SBO. Underwent laparoscopic lysis of adhesions and repair of enterotomy on 05/25/17. Pt has elevated WBC count and CT concerning for abscess. Image-guided drainage of abscess requested. Pt on Eliquis for Afib which has been held for 24 hrs. Abscess drainage is moderate risk for bleeding. Normal recs would be to hold for 48 hrs, however, procedure is semi-urgent and pt has Afib. Discussed risks, including the slightly higher risk of bleeding, and potential benefits with pt and son at length and they would like to proceed with drainage today. Plan: 1. CT-guided drainage. Recommend resuming Eliquis tomorrow. 06/03/17 10:59 06/03/17 11:17 06/03/17 11:18 Subjective: Doing Ok this am but does complain of moderate abdominal pain. Objective: Vital Signs Temp Pulse Resp BP Pulse Ox 36.8 C 68 16 109/48 L 90 L 06/03/17 09:39 06/03/17 09:39 06/03/17 09:39 06/03/17 09:39 06/03/17 09:39 Laboratory Results 06/02/17 05:50 06/03/17 05:30 06/02/17 06/03/17 06/04/17 05:59 05:59 05:59 Intake Total 210 Balance 210 PT 17.1 SEC (12.0-15.0) H 06/03/17 09:55 INR 1.40 (0.83-1.16) H 06/03/17 09:55 General: WDWN, NAD. HEENT: Normocephalic, anicteric, OP clear. Neck: Supple. Heart: RRR (paced). Resp: Normal effort. Abd: Exquisitely TTP, left greater than right. Neuro: Grossly nonfocal. ICD10 Worksheet Patient Problems: Problems Problem Status Onset Abdominal pain Acute Partial small bowel obstruction Acute
--- NOTE | 2017-06-03 11:16 | SOAPPROG ---
SOAP Progress Note Assessment/Plan: Assessment: Gone to CT, not seen today. 1. DAISY. Likely ATN due to postop hypotension. B/l creat 0.8. Creat back down to 2.5 with albumin. BUN rising, now 89. Will continue albumin 2 more days to help mobilize fluid. 2. Anasarca. Continue diuresis with IV lasix BID for now. May need to hold for a time d/t worsening azotemia. Give albumin as above. Will take a lot of time for this to resolve. 3. Leukocytosis. Rising x several days. CT drainage of abdominal fluid collection this am. Plan: 06/02/17 13:53 06/02/17 13:55 06/02/17 13:56 06/03/17 11:14 Subjective: Pt gone to CT, not seen. Objective: Vital Signs Temp Pulse Resp BP Pulse Ox 36.8 C 68 16 109/48 L 90 L 06/03/17 09:39 06/03/17 09:39 06/03/17 09:39 06/03/17 09:39 06/03/17 09:39 Laboratory Results 06/02/17 05:50 06/03/17 05:30 06/02/17 06/03/17 06/04/17 05:59 05:59 05:59 Intake Total 210 Balance 210 PT 17.1 SEC (12.0-15.0) H 06/03/17 09:55 INR 1.40 (0.83-1.16) H 06/03/17 09:55 Pt not in room. ICD10 Worksheet Patient Problems: Problems Problem Status Onset Partial small bowel obstruction Acute Abdominal pain Acute
--- NOTE | 2017-06-03 11:20 | HOSPPROG ---
Hospitalist Progress Note Assessment/Plan: * SBO s/p SOMMER with worsening leukocytosis and fluid collection on CT -plan for ct guided drain placement today -cont zosyn for now * Acute respiratory failure - now extubated with Aspiration PNA and septic shock (resolved) -I reviewed cxr negative for pna * ARF - likely ATN due to sepsis/hypotension -creatinine stable - renal following * Volume overload - massive scrotal edema -continue IV lasix * Troponin bump - demand ischemia due to sepsis -no further work-up per cards * Afib/PCM -Eliquis at reduced dose until renal function improved (currently in prep for procedure today) * LAKESHA - CPAP * Increased LFT - likely due to sepsis (resolved) will continue to follow along with you Subjective: continues to reports severe abd pain. no fever or chills. no cough /chest pain/sob Objective: Vital Signs Temp Pulse Resp BP Pulse Ox 36.8 C 68 16 109/48 L 90 L 06/03/17 09:39 06/03/17 09:39 06/03/17 09:39 06/03/17 09:39 06/03/17 09:39 Laboratory Results 06/02/17 05:50 06/03/17 05:30 06/02/17 06/03/17 06/04/17 05:59 05:59 05:59 Intake Total 210 Balance 210 PT 17.1 SEC (12.0-15.0) H 06/03/17 09:55 INR 1.40 (0.83-1.16) H 06/03/17 09:55 - Physical Exam Constitutional: no apparent distress, appears nourished, not in pain Cardiovascular: regular rate and rhythym, no murmur, rub, or gallop Respiratory: no respiratory distress, no rales or rhonchi, clear to auscultation Gastrointestinal: normoactive bowel sounds, tenderness, distension, No guarding , No rebound Neurologic: AAOx3, sensation intact bilaterally ICD10 Worksheet Patient Problems: Problems Problem Status Onset Partial small bowel obstruction Acute Abdominal pain Acute
--- NOTE | 2017-06-03 12:10 | POSTOPPROG ---
Post Op Note Date of Operation: 06/03/17 Surgeon: Ryan Loomis Anesthesia: IV Sedation Pre-op Diagnosis: Fluid collection Post-op Diagnosis: Same Indication: Concern for abscess Procedure: CT-guided abscess drainage Findings: See report Inf/Abcess present in the surg proc area at time of surgery?: Yes Depth: Organ Space (Percutaneous, intra-abdominal) Complications: No immediate.
--- NOTE | 2017-06-03 14:12 | WOCRNPDOC ---
WOCRN Advanced Assessment Note - Skin Integrity Problem, Advanced Assess Gluteal Cleft Dressing Type: Open to Air (Calazime present) Joseline Wound Tissue: Erythema, Non-blanching, Intact Wound Bed Color: Red Site Odor: None Right Coccyx Pressure Injury Dressing Type: Open to Air Exudate Amount: None Integumentary Issue Intervention: Dressing Applied (dressing placement ordered) Joseline Wound Tissue: Erythema, Non-blanching, Intact Joseline Wound Swelling: Mild Wound Bed Color: Purple Site Odor: None Site Measurement - Head-to-Toe Length X Width X Depth (cm): 2 x 3 x 0 Pressure Injury Stage: Deep Tissue Injury (DTI) Pressure Injury Present on Admit: No Skin Integrity Problem Comment: Saw patient immediately following return from procedure area. A small intact bruised area is visible to the right of the coccyx. This area presents with friable tissue, consistent in appearance with scar tissue. Calazime presently in place, which was reduced to visualize. Patient reports that at home he is usually up in a wheel chair "with a very thick seat cushion." Neither he nor his family members present know whether he has a past history of pressure injury, and report that he has been receiving care from a home health aide for the past 7 years. adjunct lecturer had initiated q2h turns and TAPS. An Accumax pump was added to the mattress at present time of WC eval, and a waffle air cushion was prepared for patient's transfer to chair later this afternoon. Discussed prevention and care measures with patient and family members, and plan of care with nursing (LANCE Rhodes and keven). Wound Care to follow up on Sunday, 06/05.
[2017-06-03 19:57] LABS: POTASSIUM 3.2 mEq/L (3.5-5.2)
[2017-06-03] MEDS ORDERED: POTASSIUM CL 10 MEQ TAB PO ONE (20:29)
[2017-06-03] MEDS: traZODone 100 MG TAB TUBE SCH (21:23)
[2017-06-03] MEDS: DUTASTERIDE 0.5 MG CAP PO SCH (21:23)
[2017-06-03] MEDS: ATORVASTATIN CALCIUM 20 MG TAB PO SCH (21:23)
[2017-06-04] MEDS: PIPERACILLIN/TAZO 2.25 GM/DEX 50 ML IV SCH ×5 (00:39→23:56)
[2017-06-04] MEDS: ALBUMIN 25% 100 ML IV SCH ×4 (01:35→20:44)
[2017-06-04] MEDS: HYDROmorphONE/DILAUDID 1 MG/ML SYR IVP PRN ×4 (01:37→14:19)
[2017-06-04 05:39] LABS: ALBUMIN 2.9 g/dL (3.5-5.0); ANION GAP 14 mEq/L (8-16); CALCIUM 8.4 mg/dL (8.5-10.4); CARBON DIOXIDE 27 mEq/l (22-31); CHLORIDE 105 mEq/L (97-110); CREATININE 2.6 mg/dL (0.7-1.3); GLOMERULAR FILTRATION RATE 23; GLUCOSE 104 mg/dL (70-100); MAGNESIUM 1.8 mg/dL (1.6-2.3); POTASSIUM 3.3 mEq/L (3.5-5.2); SODIUM 146 mEq/L (134-144)
[2017-06-04] MEDS ORDERED: POTASSIUM CL 10 MEQ TAB PO ONE ×2 (07:18→20:21)
[2017-06-04] MEDS: APIXABAN 2.5 MG TAB PO SCH ×2 (08:20→20:44)
[2017-06-04] MEDS: clonazePAM 0.5 MG TAB TUBE SCH ×3 (08:20→16:46)
[2017-06-04] MEDS: buPROPion 100 MG TAB TUBE SCH ×3 (08:20→16:47)
[2017-06-04] MEDS: ALLOPURINOL 100 MG TAB PO SCH (08:20)
[2017-06-04] MEDS: FUROSEMIDE 40 MG/4 ML VIAL IVP SCH ×2 (08:20→14:19)
[2017-06-04] MEDS: VANICREAM CREAM TP SCH (08:21)
[2017-06-04] MEDS: FLUTICASONE NASAL 120 SPRAYS/16 GM MDI EACHNARE SCH (08:21)
[2017-06-04] MEDS: TAMSULOSIN HCL 0.4 MG CAP PO SCH (08:21)
[2017-06-04] MEDS: CLOTRIMAZOLE 1% 15 GM CRTUBE TP SCH ×2 (08:22→20:52)
[2017-06-04 09:49] LABS: IG KAPPA FREE LIGHT CHAIN 4.12 mg/dL; IG LAMBDA FREE LIGHT CHAIN 3.8 mg/dL; KAPPA/LAMBDA RATIO 1.08
--- NOTE | 2017-06-04 13:38 | HOSPPROG ---
Hospitalist Progress Note Assessment/Plan: * SBO s/p SOMMER with worsening leukocytosis and fluid collection on CT s/p ct guided drain placement 06/03 (feeling better since procedure) -cont zosyn for now * Acute respiratory failure - now extubated with Aspiration PNA and septic shock (resolved) -I reviewed cxr negative for pna * ARF - likely ATN due to sepsis/hypotension -creatinine stable - renal following * Volume overload - massive scrotal edema -continue IV lasix * Troponin bump - demand ischemia due to sepsis -no further work-up per cards * Afib/PCM -Eliquis at reduced dose until renal function improved (currently in prep for procedure today) * LAKESHA - CPAP * Increased LFT - likely due to sepsis (resolved) will continue to follow along with you. send cbc/com tomorrow Subjective: improved abd pain since drainage. no fever or chills. toelrated diet today. scrotum still swollen Objective: Vital Signs Temp Pulse Resp BP Pulse Ox 36.3 C 61 16 112/47 L 97 06/04/17 08:00 06/04/17 12:00 06/04/17 12:00 06/04/17 12:00 06/04/17 12:00 Microbiology 06/03/17 11:55 Gram Stain - Final Abdomen - Aspirate Laboratory Results 06/02/17 05:50 06/04/17 05:10 06/03/17 06/04/17 06/05/17 05:59 05:59 05:59 Intake Total 210 1400 Output Total 750 Balance 210 650 PT 17.1 SEC (12.0-15.0) H 06/03/17 09:55 INR 1.40 (0.83-1.16) H 06/03/17 09:55 - Physical Exam Constitutional: no apparent distress, appears nourished, not in pain Cardiovascular: regular rate and rhythym, no murmur, rub, or gallop Respiratory: no respiratory distress, no rales or rhonchi, clear to auscultation Gastrointestinal: normoactive bowel sounds, soft, non-tender abdomen, no palpable masses, other (jose manuel drain in place), No guarding, No rebound Neurologic: AAOx3, sensation intact bilaterally ICD10 Worksheet Patient Problems: Problems Problem Status Onset Partial small bowel obstruction Acute Abdominal pain Acute
--- NOTE | 2017-06-04 13:53 | SOAPPROG ---
SOAP Progress Note Assessment/Plan: Assessment/Plan: DAISY: likely ATN in setting of post-op shock, which has now improved. Cr peaked at 3.1, down to 2.1 and now has been stable the past few days around 2.5-2.6 while being diuresed. - No need for HD. - Will continue IV Lasix. - Avoid hypotension and nephrotoxins. - Will continue to monitor. Hypervolemia: slowly improving, will continue IV Lasix and albumin. Hypernatremia: Na 146, pt with good PO free water intake, will continue to monitor. Hypokalemia: pt got po KCl today, will continue to monitor. Subjective: No acute events overnight. Pt states that his scrotum is still swollen, maybe a little better. He is also having some pain in his lateral left thigh. Objective: Vital Signs Temp Pulse Resp BP Pulse Ox 36.3 C 61 16 112/47 L 97 06/04/17 08:00 06/04/17 12:00 06/04/17 12:00 06/04/17 12:00 06/04/17 12:00 Microbiology 06/03/17 11:55 Gram Stain - Final Abdomen - Aspirate Laboratory Results 06/02/17 05:50 06/04/17 05:10 06/03/17 06/04/17 06/05/17 05:59 05:59 05:59 Intake Total 210 1400 Output Total 750 Balance 210 650 PT 17.1 SEC (12.0-15.0) H 06/03/17 09:55 INR 1.40 (0.83-1.16) H 06/03/17 09:55 General: alert and oriented, no acute distress Eyes: EOMI, PERRL OP: Clear CV: RRR Resp: nonlabored respirations Abd: soft, NT Ext: +1 edema BLE Neuro: CN II-XII grossly intact, no asterixis Psych: cooperative, appropriate mood and affect ICD10 Worksheet Patient Problems: Problems Problem Status Onset Abdominal pain Acute Partial small bowel obstruction Acute
[2017-06-04] MEDS ORDERED: buPROPion 100 MG TAB PO SCH (17:15)
[2017-06-04 18:13] LABS: POTASSIUM 3.4 mEq/L (3.5-5.2)
--- NOTE | 2017-06-04 19:14 | SOAPPROG ---
SOAP Progress Note Assessment/Plan: Assessment/Plan: 87-year-old gentleman postop day 6. Status post laparoscopic lysis of adhesions with repair of enterotomy. The patient became confused postoperatively and then went into oliguric renal failure and subsequently became hypotensive. Shock ?septic responded to vasopressor medication and fluid hydration. He is left acidotic his confusion has abated. Tolerating maps in the 60-65 range for blood pressure. Aspirated Intubated with normal bronchoscopy 05/27 Increased wbc over the weekend CT guided drainage for organ space abscess positive for Gm + fermenting jon - on Zosyn Abd benign. Gelacio seropurulent Blood cx negative leucocytosis fluid overload better diuresis OOB ambulate/encourage IS/PO tolerating po Continue abx 06/04/17 19:11 Objective: Vital Signs Temp Pulse Resp BP Pulse Ox 36.4 C 60 16 105/48 L 94 06/04/17 15:56 06/04/17 15:56 06/04/17 15:56 06/04/17 15:56 06/04/17 15:56 Microbiology 06/03/17 11:55 Mycobacterial Smear (JOYCE) - Final Abdomen - Aspirate 06/03/17 11:55 Gram Stain - Final Abdomen - Aspirate Laboratory Results 06/02/17 05:50 06/04/17 17:50 06/03/17 06/04/17 06/05/17 05:59 05:59 05:59 Intake Total 210 1400 1000 Output Total 750 430 Balance 210 650 570 PT 17.1 SEC (12.0-15.0) H 06/03/17 09:55 INR 1.40 (0.83-1.16) H 06/03/17 09:55 ICD10 Worksheet Patient Problems: Problems Problem Status Onset Abdominal pain Acute Partial small bowel obstruction Acute
[2017-06-04] MEDS: traZODone 100 MG TAB TUBE SCH (20:44)
[2017-06-04] MEDS: DUTASTERIDE 0.5 MG CAP PO SCH (20:44)
[2017-06-04] MEDS: ATORVASTATIN CALCIUM 20 MG TAB PO SCH (20:44)
[2017-06-05] MEDS: HYDROmorphONE/DILAUDID 1 MG/ML SYR IVP PRN ×4 (02:07→21:57)
[2017-06-05] MEDS: PIPERACILLIN/TAZO 2.25 GM/DEX 50 ML IV SCH ×3 (05:24→17:37)
[2017-06-05 05:55] LABS: ANION GAP 11 mEq/L (8-16); CALCIUM 8.6 mg/dL (8.5-10.4); CARBON DIOXIDE 30 mEq/l (22-31); CHLORIDE 105 mEq/L (97-110); CREATININE 2.6 mg/dL (0.7-1.3); GLOMERULAR FILTRATION RATE 23; GLUCOSE 125 mg/dL (70-100); MAGNESIUM 1.8 mg/dL (1.6-2.3); POTASSIUM 3.4 mEq/L (3.5-5.2); SODIUM 146 mEq/L (134-144)
[2017-06-05] MEDS ORDERED: POTASSIUM CL 10 MEQ TAB PO ONE ×2 (09:13→20:52)
[2017-06-05] MEDS: FLUTICASONE NASAL 120 SPRAYS/16 GM MDI EACHNARE SCH (10:04)
[2017-06-05] MEDS: APIXABAN 2.5 MG TAB PO SCH ×2 (10:04→21:52)
[2017-06-05] MEDS: TAMSULOSIN HCL 0.4 MG CAP PO SCH (10:04)
[2017-06-05] MEDS: buPROPion 100 MG TAB PO SCH ×3 (10:04→17:38)
[2017-06-05] MEDS: ALLOPURINOL 100 MG TAB PO SCH (10:04)
[2017-06-05] MEDS: clonazePAM 0.5 MG TAB TUBE SCH ×3 (10:04→17:38)
[2017-06-05] MEDS: FUROSEMIDE 40 MG/4 ML VIAL IVP SCH ×2 (10:04→17:37)
[2017-06-05] MEDS: CLOTRIMAZOLE 1% 15 GM CRTUBE TP SCH ×2 (10:05→22:13)
[2017-06-05] MEDS: VANICREAM CREAM TP SCH (10:20)
[2017-06-05 10:32] LABS: ADD DIFF? YES; ADD MORPH? NO; ADD SCAN? NO; ATYPICAL LYMPHOCYTE FLAG 0 (0-99); FRAGMENT RBC FLAG 0 (0-99); HEMATOCRIT 31.1 % (40.0-51.0); HEMOGLOBIN 10.8 g/dL (13.7-17.5); LEFT SHIFT FLG 30 (0-99); LIPEMIA HEMOLYSIS FLAG 90 (0-99); MEAN CELL HEMOGLOBIN 31.6 pg (27.9-34.1); MEAN CELL HEMOGLOBIN CONCENTR. 34.7 g/dL (32.4-36.7); MEAN CELL VOLUME 90.9 fL (81.5-99.8); MEAN PLATELET VOLUME 10.3 fL (8.7-11.7); PLATELET CLUMPS FLAG 0 (0-99); PLATELET COUNT 261 10^3/uL (150-400); RED BLOOD CELL COUNT 3.42 10^6/uL (4.40-6.38); RED CELL DISTRIBUTION WIDTH 14.6 % (11.5-15.2)
[2017-06-05 10:58] LABS: ANION GAP 16 mEq/L (8-16); CALCIUM 8.6 mg/dL (8.5-10.4); CARBON DIOXIDE 29 mEq/l (22-31); CHLORIDE 102 mEq/L (97-110); CREATININE 2.6 mg/dL (0.7-1.3); GLOMERULAR FILTRATION RATE 23; GLUCOSE 119 mg/dL (70-100); POTASSIUM 3.3 mEq/L (3.5-5.2); SODIUM 147 mEq/L (134-144)
[2017-06-05 11:15] LABS: PLATELET ESTIMATE ADEQUATE (ADEQ)
--- NOTE | 2017-06-05 11:30 | SOAPPROG ---
SOAP Progress Note Assessment/Plan: Assessment: Reviewed chart and data, spoke with patient and family 1. DAISY Bl renal function good. Cr peaked near 3, now rising slightly. Still total body volume overloaded, although IV volume may not be so much so... I/O's reviewed. He is having some incontinence, but his urine output appears low. Abd is not tense to invoke abd compartment syndrome. Diff dx includes ATN, AIN, and CABRERA. I will request US to evaluate for the latter (bedside bladder scan would likely not work with ascites). Continue albumin and lasix for now. 2. Intra abd abscess S/p drainage, clinically improving Plan: 06/05/17 11:27 Subjective: Doing pretty well Objective: Vital Signs Temp Pulse Resp BP Pulse Ox 36.8 C 62 16 141/66 H 90 L 06/05/17 08:00 06/05/17 08:00 06/05/17 08:00 06/05/17 08:00 06/05/17 08:00 Microbiology 06/03/17 11:55 Gram Stain - Final Abdomen - Aspirate 06/03/17 11:55 Mycobacterial Smear (JOYCE) - Final Abdomen - Aspirate Laboratory Results 06/05/17 10:14 06/05/17 10:14 06/04/17 06/05/17 06/06/17 05:59 05:59 05:59 Intake Total 1400 1600 Output Total 750 445 Balance 650 1155 PT 17.1 SEC (12.0-15.0) H 06/03/17 09:55 INR 1.40 (0.83-1.16) H 06/03/17 09:55 Physical Exam - Physical Exam General Appearance: no apparent distress Respiratory: other (B pleural effusions on exam) Cardiac/Chest: regular rate, rhythm Abdomen: other (post op, not tense, no guarding) Rectal: other (scrotal edema) Extremities: pedal edema Neuro/Psych: oriented x 3 ICD10 Worksheet Patient Problems: Problems Problem Status Onset Abdominal pain Acute Partial small bowel obstruction Acute
[2017-06-05 13:01] LABS: COLOR YELLOW; LEUKOCYTE ESTERASE,URINE NEGATIVE (NEGATIVE); NITRITE,URINE NEGATIVE (NEGATIVE)
[2017-06-05 14:04] LABS: MUCUS TRACE /lpf (NONE-1+)
--- NOTE | 2017-06-05 14:12 | HOSPPROG ---
Hospitalist Progress Note Assessment/Plan: * SBO s/p SOMMER with worsening leukocytosis and fluid collection on CT s/p ct guided drain placement 06/03 (feeling better since procedure) -cont zosyn for now -drain care per surgery * Acute respiratory failure - now extubated with Aspiration PNA and septic shock (resolved) -I reviewed cxr negative for pna * ARF - likely ATN due to sepsis/hypotension -creatinine stable - renal following -abd us ordered 06/05 * Volume overload - massive scrotal edema -continue IV lasix * Troponin bump - demand ischemia due to sepsis -no further work-up per cards * Afib/PCM -Eliquis at reduced dose until renal function improved (currently in prep for procedure today) * LAKSEHA - CPAP * Increased LFT - likely due to sepsis (resolved) will continue to follow along with you. send cbc/com tomorrow Subjective: improved appetite. no fever or chills. continues to have some abd pain, but improving Objective: Vital Signs Temp Pulse Resp BP Pulse Ox 36.8 C 62 16 141/66 H 90 L 06/05/17 08:00 06/05/17 08:00 06/05/17 08:00 06/05/17 08:00 06/05/17 08:00 Microbiology 06/03/17 11:55 Mycobacterial Smear (JOYCE) - Final Abdomen - Aspirate 06/03/17 11:55 Gram Stain - Final Abdomen - Aspirate Laboratory Results 06/05/17 10:14 06/05/17 10:14 06/04/17 06/05/17 06/06/17 05:59 05:59 05:59 Intake Total 1400 1600 Output Total 750 445 300 Balance 650 1155 -300 PT 17.1 SEC (12.0-15.0) H 06/03/17 09:55 INR 1.40 (0.83-1.16) H 06/03/17 09:55 - Physical Exam Constitutional: no apparent distress, appears nourished, not in pain Cardiovascular: regular rate and rhythym, no murmur, rub, or gallop Respiratory: no respiratory distress, no rales or rhonchi, clear to auscultation Gastrointestinal: normoactive bowel sounds, soft, non-tender abdomen, no palpable masses, distension, No guarding, No rebound ICD10 Worksheet Patient Problems: Problems Problem Status Onset Partial small bowel obstruction Acute Abdominal pain Acute
--- NOTE | 2017-06-05 14:29 | WOCRNPDOC ---
WOCRN Advanced Assessment Note - Skin Integrity Problem, Advanced Assess Gluteal Cleft Dressing Type: Open to Air Exudate Amount: None Exudate Characteristic(s): None Integumentary Issue Intervention: Barrier Cream Applied (Calazime) Emily Wound Tissue: Blanching, Erythema, Intact Emily Wound Swelling: Mild Wound Bed Color: Red Site Odor: None Site Measurement - Head-to-Toe Length X Width X Depth (cm): 1.4cmx1.3cmx0.1cm Skin Integrity Problem Comment: Circular area of partial-thickness tissue loss in L gluteal cleft, consistent w/ incontinence-associated dermatitis. Erythema emily-wound blanching throughout. Applied Calazime during assessment, and nursing changed chux. Patient continues to be at risk for pressure-related skin breakdown due to increased moisture and general immobility, and nursing should continue w/ pressure-relieving measures such as TAPS and turns q2. Right Coccyx Pressure Injury Dressing Type: Allevyn Life Exudate Amount: None Exudate Characteristic(s): None Integumentary Issue Intervention: Sutures Removed, Barrier Cream Applied ( Calazime) Emily Wound Tissue: Blanching, Erythema, Denuded Emily Wound Swelling: Mild Pressure Injury Stage: Deep Tissue Injury (DTI) (resolving) Pressure Injury Present on Admit: No Skin Integrity Problem Comment: Site previously documented as a DTI is resolving , and there is blanching erythema throughout this area and surrounding tissues. Patient does have some moisture-related breakdown distally r/t incontinence, and existing dressing was saturated as a result. Will dc dressing, and initiate order for Calazime. Pressure-relieving interventions should continue, as this patient is at high risk for skin breakdown.
[2017-06-05 16:49] LABS: EOSMR EOSINOPHILS NO EOS SEEN (NO EOS SEEN); EOSMR EPITHELIAL CELLS FEW EPITH CELLS; EOSMR PMNS MODERATE PMN CELLS; EOSMR RBCS FEW RBCS
[2017-06-05 18:20] LABS: POTASSIUM 3.3 mEq/L (3.5-5.2)
[2017-06-05] MEDS: ATORVASTATIN CALCIUM 20 MG TAB PO SCH (21:52)
[2017-06-05] MEDS: DUTASTERIDE 0.5 MG CAP PO SCH (21:52)
[2017-06-05] MEDS: traZODone 100 MG TAB TUBE SCH (21:52)
--- NOTE | 2017-06-05 22:43 | SOAPPROG ---
SOAP Progress Note Assessment/Plan: Assessment/Plan: 87-year-old gentleman status post laparoscopic lysis of adhesions with repair of enterotomy. The patient became confused postoperatively and then went into oliguric renal failure and subsequently became hypotensive. Shock ?septic responded to vasopressor medication and fluid hydration. Aspirated Intubated with normal bronchoscopy 05/27 Increased wbc over the weekend CT guided drainage for organ space abscess positive for Gm + fermenting jon - on Zosyn Abd benign. Lower midline draining Gelacio seropurulent less Blood cx negative leucocytosis 20K PMN up fluid overload better Cr plateaued at 2.6 Deep organ and superficial space infections OOB Renal u/s no obstruction ambulate/encourage IS/PO tolerating po Continue abx watch renal fn 06/04/17 19:11 06/05/17 22:41 Objective: Vital Signs Temp Pulse Resp BP Pulse Ox 36.8 C 60 12 139/76 H 95 06/05/17 20:00 06/05/17 20:00 06/05/17 20:00 06/05/17 20:00 06/05/17 20:00 Microbiology 06/03/17 11:55 Gram Stain - Final Abdomen - Aspirate 06/03/17 11:55 Mycobacterial Smear (JOYCE) - Final Abdomen - Aspirate Laboratory Results 06/05/17 10:14 06/05/17 17:45 06/04/17 06/05/17 06/06/17 05:59 05:59 05:59 Intake Total 1400 1600 150 Output Total 532 218 1017 Balance 650 1155 -1270 PT 17.1 SEC (12.0-15.0) H 06/03/17 09:55 INR 1.40 (0.83-1.16) H 06/03/17 09:55 ICD10 Worksheet Patient Problems: Problems Problem Status Onset Abdominal pain Acute Partial small bowel obstruction Acute
[2017-06-06] MEDS: PIPERACILLIN/TAZO 2.25 GM/DEX 50 ML IV SCH ×5 (00:28→23:16)
[2017-06-06 05:46] LABS: % IMMATURE GRANULYOCYTES 1.4 % (0.0-1.1); ABSOLUTE IMMATURE GRANULOCYTES 0.28 10^3/uL (0.00-0.10); ADD DIFF? NO; ADD MORPH? NO; ADD SCAN? NO; ATYPICAL LYMPHOCYTE FLAG 10 (0-99); FRAGMENT RBC FLAG 0 (0-99); HEMATOCRIT 31.7 % (40.0-51.0); HEMOGLOBIN 10.8 g/dL (13.7-17.5); LEFT SHIFT FLG 10 (0-99); LIPEMIA HEMOLYSIS FLAG 90 (0-99); MEAN CELL HEMOGLOBIN 31.3 pg (27.9-34.1); MEAN CELL HEMOGLOBIN CONCENTR. 34.1 g/dL (32.4-36.7); MEAN CELL VOLUME 91.9 fL (81.5-99.8); MEAN PLATELET VOLUME 10.1 fL (8.7-11.7); PLATELET CLUMPS FLAG 0 (0-99); PLATELET COUNT 285 10^3/uL (150-400); RED BLOOD CELL COUNT 3.45 10^6/uL (4.40-6.38); RED CELL DISTRIBUTION WIDTH 15.1 % (11.5-15.2)
[2017-06-06 06:01] LABS: ALBUMIN 2.9 g/dL (3.5-5.0); ANION GAP 13 mEq/L (8-16); CALCIUM 8.4 mg/dL (8.5-10.4); CARBON DIOXIDE 30 mEq/l (22-31); CHLORIDE 103 mEq/L (97-110); CREATININE 2.6 mg/dL (0.7-1.3); GLOMERULAR FILTRATION RATE 23; GLUCOSE 103 mg/dL (70-100); MAGNESIUM 1.8 mg/dL (1.6-2.3); POTASSIUM 3.4 mEq/L (3.5-5.2); SODIUM 146 mEq/L (134-144)
[2017-06-06] MEDS: HYDROmorphONE/DILAUDID 1 MG/ML SYR IVP PRN ×2 (06:07→22:13)
[2017-06-06] MEDS ORDERED: POTASSIUM CL 10 MEQ TAB PO ONE ×2 (09:00→21:58)
--- NOTE | 2017-06-06 09:04 | SOAPPROG ---
SOAP Progress Note Assessment/Plan: Assessment/Plan: 87-year-old gentleman status post laparoscopic lysis of adhesions with repair of enterotomy. The patient became confused postoperatively and then went into oliguric renal failure and subsequently became hypotensive. Shock ?septic responded to vasopressor medication and fluid hydration. Aspirated Intubated with normal bronchoscopy 05/27 Increased wbc over the weekend CT guided drainage for organ space abscess positive for Gm + fermenting jon - on Zosyn E coli EBL/Klebsiella sensitive to zosyn Abd benign. Lower midline draining Gelacio seropurulent less than 06/05 Blood cx negative leucocytosis 19K fluid overload better Cr plateaued at 2.6 Deep organ and superficial space infections OOB Renal u/s no obstruction ambulate/encourage IS/PO tolerating po Continue abx watch renal fn Anticipate d/c in next 72 hr if continues to improve 06/04/17 19:11 06/05/17 22:41 06/06/17 09:01 Objective: Vital Signs Temp Pulse Resp BP Pulse Ox 36.4 C 61 14 122/63 H 96 06/06/17 08:15 06/06/17 08:15 06/06/17 08:15 06/06/17 08:15 06/06/17 08:15 Microbiology 06/03/17 11:55 Gram Stain - Final Abdomen - Aspirate 06/03/17 11:55 Mycobacterial Smear (JOYCE) - Final Abdomen - Aspirate Laboratory Results 06/06/17 05:30 06/06/17 05:30 06/05/17 06/06/17 06/07/17 05:59 05:59 05:59 Intake Total 1600 650 Output Total 445 1430 Balance 1155 -780 PT 17.1 SEC (12.0-15.0) H 06/03/17 09:55 INR 1.40 (0.83-1.16) H 06/03/17 09:55 ICD10 Worksheet Patient Problems: Problems Problem Status Onset Abdominal pain Acute ESBL (extended spectrum beta-lactamase) producing bacteria infection Acute ~ Partial small bowel obstruction Acute
[2017-06-06] MEDS: buPROPion 100 MG TAB PO SCH ×3 (10:03→16:55)
[2017-06-06] MEDS: APIXABAN 2.5 MG TAB PO SCH ×2 (10:03→20:38)
[2017-06-06] MEDS: clonazePAM 0.5 MG TAB TUBE SCH ×3 (10:03→16:55)
[2017-06-06] MEDS: FUROSEMIDE 40 MG/4 ML VIAL IVP SCH ×2 (10:03→14:16)
[2017-06-06] MEDS: TAMSULOSIN HCL 0.4 MG CAP PO SCH (10:03)
[2017-06-06] MEDS: ALLOPURINOL 100 MG TAB PO SCH (10:03)
[2017-06-06] MEDS: FLUTICASONE NASAL 120 SPRAYS/16 GM MDI EACHNARE SCH (10:04)
[2017-06-06] MEDS: CLOTRIMAZOLE 1% 15 GM CRTUBE TP SCH ×2 (10:05→20:38)
--- NOTE | 2017-06-06 11:07 | SOAPPROG ---
SOAP Progress Note Assessment/Plan: Assessment: Reviewed chart and data, spoke with patient and family 1. DAISY Bl renal function good. Cr peaked near 3, now plateaued at 2.6. Still total body volume overloaded, although IV volume may not be so much so... I/O's reviewed. He is having some incontinence, but his urine output appears low. Abd is not tense to invoke abd compartment syndrome. Diff dx includes ATN, AIN, and CABRERA. US unremarkable for pyuria. US did not show pyruia, or low FENA. He had some PVR. I feel it is unlikely to be enough to cause his renal failure, but I will request nye placement to ensure and to better track I/O in the face of incontinence. This may primarily be ischemic ATN. 2. Intra abd abscess S/p drainage, clinically improving Plan: 06/05/17 11:27 06/06/17 11:00 Subjective: Doing fair Objective: Vital Signs Temp Pulse Resp BP Pulse Ox 36.4 C 61 14 122/63 H 96 06/06/17 08:15 06/06/17 08:15 06/06/17 08:15 06/06/17 08:15 06/06/17 08:15 Microbiology 06/03/17 11:55 Gram Stain - Final Abdomen - Aspirate 06/03/17 11:55 Mycobacterial Smear (JOYCE) - Final Abdomen - Aspirate Laboratory Results 06/06/17 05:30 06/06/17 05:30 06/05/17 06/06/17 06/07/17 05:59 05:59 05:59 Intake Total 1600 650 Output Total 445 1430 Balance 1155 -780 PT 17.1 SEC (12.0-15.0) H 06/03/17 09:55 INR 1.40 (0.83-1.16) H 06/03/17 09:55 Physical Exam - Physical Exam General Appearance: no apparent distress Respiratory: decreased breath sounds Cardiac/Chest: regular rate, rhythm Abdomen: soft Extremities: pedal edema Neuro/Psych: oriented x 3 ICD10 Worksheet Patient Problems: Problems Problem Status Onset Abdominal pain Acute ESBL (extended spectrum beta-lactamase) producing bacteria infection Acute ~ Partial small bowel obstruction Acute
--- NOTE | 2017-06-06 13:36 | HOSPPROG ---
Hospitalist Progress Note Assessment/Plan: SBO s/p SOMMER with worsening leukocytosis and fluid collection on CT s/p ct guided drain placement 06/03 (feeling better since procedure) -cont zosyn for now -drain care per surgery * Acute respiratory failure - now extubated with Aspiration PNA and septic shock (resolved) -I reviewed cxr negative for pna continue IS * ARF - likely ATN due to sepsis/hypotension -creatinine stable - renal following -abd us ordered 06/05 * Volume overload - massive scrotal edema -continue IV lasix * Troponin bump - demand ischemia due to sepsis -no further work-up per cards * Afib/PCM -Eliquis at reduced dose until renal function improved (currently in prep for procedure today) * LAKESHA - CPAP * Increased LFT - likely due to sepsis (resolved) will continue to follow along with you. send cbc/com tomorrow Subjective: sleeping but no complaints. case d/w dr dicksno Objective: Vital Signs Temp Pulse Resp BP Pulse Ox 36.5 C 87 16 134/63 H 95 06/06/17 12:39 06/06/17 12:39 06/06/17 12:39 06/06/17 12:39 06/06/17 12:39 Microbiology 06/03/17 11:55 Gram Stain - Final Abdomen - Aspirate 06/03/17 11:55 Mycobacterial Smear (JOYCE) - Final Abdomen - Aspirate Laboratory Results 06/06/17 05:30 06/06/17 05:30 06/05/17 06/06/17 06/07/17 05:59 05:59 05:59 Intake Total 1600 650 Output Total 445 1430 Balance 1155 -780 PT 17.1 SEC (12.0-15.0) H 06/03/17 09:55 INR 1.40 (0.83-1.16) H 06/03/17 09:55 - Physical Exam Constitutional: no apparent distress, appears nourished Eyes: PERRL, anicteric sclera Ears, Nose, Mouth, Throat: moist mucous membranes, hearing normal Cardiovascular: regular rate and rhythym, no murmur, rub, or gallop Respiratory: no respiratory distress, no rales or rhonchi Gastrointestinal: normoactive bowel sounds, soft, non-tender abdomen Genitourinary: no bladder fullness, nye in urethra Skin: warm, normal color Musculoskeletal: full muscle strength, no muscle tenderness Neurologic: AAOx3 ICD10 Worksheet Patient Problems: Problems Problem Status Onset Abdominal pain Acute ESBL (extended spectrum beta-lactamase) producing bacteria infection Acute ~ Partial small bowel obstruction Acute
[2017-06-06] MEDS: VANICREAM CREAM TP SCH (14:18)
[2017-06-06 19:22] LABS: POTASSIUM 3.2 mEq/L (3.5-5.2)
[2017-06-06] MEDS: DUTASTERIDE 0.5 MG CAP PO SCH (20:38)
[2017-06-06] MEDS: traZODone 100 MG TAB TUBE SCH (20:38)
[2017-06-06] MEDS: ATORVASTATIN CALCIUM 20 MG TAB PO SCH (20:38)
[2017-06-07] MEDS: PIPERACILLIN/TAZO 2.25 GM/DEX 50 ML IV SCH ×3 (05:01→18:24)
[2017-06-07 05:12] LABS: % IMMATURE GRANULYOCYTES 1.2 % (0.0-1.1); ABSOLUTE IMMATURE GRANULOCYTES 0.23 10^3/uL (0.00-0.10); ADD DIFF? NO; ADD MORPH? NO; ADD SCAN? NO; ATYPICAL LYMPHOCYTE FLAG 10 (0-99); FRAGMENT RBC FLAG 0 (0-99); HEMATOCRIT 30.1 % (40.0-51.0); LEFT SHIFT FLG 10 (0-99); LIPEMIA HEMOLYSIS FLAG 80 (0-99); MEAN CELL HEMOGLOBIN 31.2 pg (27.9-34.1); MEAN CELL HEMOGLOBIN CONCENTR. 33.2 g/dL (32.4-36.7); MEAN CELL VOLUME 93.8 fL (81.5-99.8); MEAN PLATELET VOLUME 9.6 fL (8.7-11.7); PLATELET CLUMPS FLAG 0 (0-99); PLATELET COUNT 282 10^3/uL (150-400); RED BLOOD CELL COUNT 3.21 10^6/uL (4.40-6.38); RED CELL DISTRIBUTION WIDTH 15.1 % (11.5-15.2)
[2017-06-07 05:22] LABS: ALBUMIN 2.5 g/dL (3.5-5.0); ANION GAP 9 mEq/L (8-16); CARBON DIOXIDE 32 mEq/l (22-31); CHLORIDE 103 mEq/L (97-110); CREATININE 2.5 mg/dL (0.7-1.3); GLOMERULAR FILTRATION RATE 25; GLUCOSE 98 mg/dL (70-100); MAGNESIUM 1.7 mg/dL (1.6-2.3); POTASSIUM 3.4 mEq/L (3.5-5.2); SODIUM 144 mEq/L (134-144)
[2017-06-07] MEDS ORDERED: POTASSIUM CL 10 MEQ TAB PO ONE ×3 (08:19→22:41)
--- NOTE | 2017-06-07 09:43 | GOP ---
[f rep st] OPERATIVE REPORT DATE OF OPERATION: 05/25/2017 SURGEON: Nate Bonilla MD ANESTHESIA: General endotracheal anesthesia was used. ANESTHESIOLOGIST: Dusty Delgado MD PREOPERATIVE DIAGNOSIS: Small bowel obstruction. POSTOPERATIVE DIAGNOSIS: Small bowel obstruction. FINDINGS: A small bowel obstruction with adhesions in the left lower quadrant. Dilated bowel which were decompressed at the end of the procedure. COMPLICATIONS: None. DESCRIPTION OF PROCEDURE: The patient was brought to the operating room. After induction of endotracheal anesthesia in the supine position, the abdomen was prepped with chlorhexidine and draped sterilely. Local anesthetic was infused in the skin and subcutaneous tissues of the left upper quadrant. Open 12 mm trocar placement was performed under direct visualization. The abdomen was insufflated to 15 torr. Adhesions were taken down from the abdominal wall and the bowel was run from the ileocecal valve towards the ligament of Treitz. The bowel was found to be most dilated with a transition point in the left lower quadrant. This was taken down with careful dissection. While holding the bowel, an enterotomy was noted just distal to this area, as expected from the previous adhesions that were taken down. A small incision was then made in the lower abdomen, lower midline, through a previous incision. The enterotomy was brought up through this area and closed transversely using a 2 layer anastomosis technique with 3-0 PDS for the mucosal layer and Lembert sutures for the serosal layer using 3-0 Vicryl sutures. This appeared to be intact. This was reintroduced into the abdomen. The abdomen was irrigated and aspirated with a small spillage of enteric material. The patient tolerated the procedure well. The working trocars in the left lower quadrant and the open Jael port were closed using 0 Vicryl. The small incision was also closed using 0 Vicryl. All incisions were approximated using Monocryl. The patient was awakened, extubated. Needle, instrument, and sponge counts were verified to be correct x2. /[id number]/MODL MTDD
[2017-06-07] MEDS: ALLOPURINOL 100 MG TAB PO SCH (10:03)
[2017-06-07] MEDS: buPROPion 100 MG TAB PO SCH ×3 (10:03→18:25)
[2017-06-07] MEDS: TAMSULOSIN HCL 0.4 MG CAP PO SCH (10:03)
[2017-06-07] MEDS: APIXABAN 2.5 MG TAB PO SCH ×2 (10:04→21:56)
[2017-06-07] MEDS: clonazePAM 0.5 MG TAB TUBE SCH ×3 (10:13→18:24)
[2017-06-07] MEDS: CLOTRIMAZOLE 1% 15 GM CRTUBE TP SCH ×2 (10:34→21:57)
[2017-06-07] MEDS: FLUTICASONE NASAL 120 SPRAYS/16 GM MDI EACHNARE SCH (10:37)
[2017-06-07] MEDS: FUROSEMIDE 40 MG/4 ML VIAL IVP SCH ×2 (10:53→15:26)
--- NOTE | 2017-06-07 11:20 | SOAPPROG ---
SOAP Progress Note Assessment/Plan: Assessment: Reviewed chart and data, spoke with patient and family 1. DAISY Bl renal function good. Catheter placed yesterday, and he appears to be having markedly increased urine output. This is excellent. He is already on tamsulosin. Expect Cr to eventually fall, but brisk diuresis may delay this somewhat. 2. Intra abd abscess S/p drainage, clinically improving 3. Eating is improved. Subjective: Looks tired today Objective: Vital Signs Temp Pulse Resp BP Pulse Ox 36.4 C 70 16 138/56 H 95 06/07/17 11:02 06/07/17 11:02 06/07/17 11:02 06/07/17 11:02 06/07/17 11:02 Microbiology 06/03/17 11:55 Gram Stain - Final Abdomen - Aspirate 06/03/17 11:55 Mycobacterial Smear (JOYCE) - Final Abdomen - Aspirate Laboratory Results 06/07/17 05:05 06/07/17 05:05 06/06/17 06/07/17 06/08/17 05:59 05:59 05:59 Intake Total 650 150 200 Output Total 1430 2445 700 Balance -780 -2295 -500 PT 17.1 SEC (12.0-15.0) H 06/03/17 09:55 INR 1.40 (0.83-1.16) H 06/03/17 09:55 Physical Exam - Physical Exam General Appearance: no apparent distress Respiratory: decreased breath sounds Cardiac/Chest: regular rate, rhythm Abdomen: soft Male Genitalia: other (nye, scrotal edema) Extremities: pedal edema ICD10 Worksheet Patient Problems: Problems Problem Status Onset Abdominal pain Acute ESBL (extended spectrum beta-lactamase) producing bacteria infection Acute ~ Partial small bowel obstruction Acute
[2017-06-07] MEDS: VANICREAM CREAM TP SCH (14:38)
[2017-06-07] MEDS: HYDROmorphONE/DILAUDID 1 MG/ML SYR IVP PRN (15:26)
[2017-06-07] MEDS ORDERED: HYDROCODONE/APAP 5/325 TAB PO PRN (16:43)
--- NOTE | 2017-06-07 16:51 | HOSPPROG ---
Hospitalist Progress Note Assessment/Plan: SBO s/p SOMMER with worsening leukocytosis and fluid collection on CT s/p ct guided drain placement 06/03 (feeling better since procedure) -cont zosyn for now -drain care per surgery still w ileus * Acute respiratory failure - now extubated with Aspiration PNA and septic shock (resolved) -I reviewed cxr negative for pna continue IS * ARF - likely ATN due to sepsis/hypotension -creatinine stable - renal following -abd us ordered 06/05 * Volume overload - decreased scrotal edema -continue IV lasix nye placed * Troponin bump - demand ischemia due to sepsis -no further work-up per cards * Afib/PCM -Eliquis at reduced dose until renal function improved (currently in prep for procedure today) * LAKESHA - CPAP * Increased LFT - likely due to sepsis (resolved) will continue to follow along with you. send cbc/com tomorrow Subjective: more alert. good uop Objective: Vital Signs Temp Pulse Resp BP Pulse Ox 37.0 C 76 18 115/69 93 06/07/17 14:46 06/07/17 14:46 06/07/17 14:46 06/07/17 14:46 06/07/17 14:46 Microbiology 06/03/17 11:55 Gram Stain - Final Abdomen - Aspirate 06/03/17 11:55 Mycobacterial Smear (JOYCE) - Final Abdomen - Aspirate Laboratory Results 06/07/17 05:05 06/07/17 05:05 06/06/17 06/07/17 06/08/17 05:59 05:59 05:59 Intake Total 650 150 200 Output Total 1430 2445 1630 Balance -780 -2295 -1430 PT 17.1 SEC (12.0-15.0) H 06/03/17 09:55 INR 1.40 (0.83-1.16) H 06/03/17 09:55 - Physical Exam Constitutional: no apparent distress, appears nourished Eyes: PERRL, anicteric sclera Ears, Nose, Mouth, Throat: moist mucous membranes, hearing normal Cardiovascular: regular rate and rhythym, no murmur, rub, or gallop Respiratory: no respiratory distress, no rales or rhonchi Gastrointestinal: other (bs hypoactive but present), No normoactive bowel sounds Genitourinary: no bladder fullness, nye in urethra Skin: warm Musculoskeletal: full muscle strength ICD10 Worksheet Patient Problems: Problems Problem Status Onset Abdominal pain Acute ESBL (extended spectrum beta-lactamase) producing bacteria infection Acute ~ Partial small bowel obstruction Acute
[2017-06-07] MEDS: oxyCODONE IR 5 MG TAB PO PRN (17:44)
[2017-06-07] MEDS: DUTASTERIDE 0.5 MG CAP PO SCH (21:56)
[2017-06-07] MEDS: traZODone 100 MG TAB TUBE SCH (21:56)
[2017-06-07] MEDS: ATORVASTATIN CALCIUM 20 MG TAB PO SCH (21:56)
[2017-06-07 22:35] LABS: POTASSIUM 3.3 mEq/L (3.5-5.2)
[2017-06-08] MEDS: PIPERACILLIN/TAZO 2.25 GM/DEX 50 ML IV SCH ×4 (00:42→17:27)
[2017-06-08 05:39] LABS: ABSOLUTE IMMATURE GRANULOCYTES 0.15 10^3/uL (0.00-0.10); ADD DIFF? NO; ADD MORPH? NO; ADD SCAN? NO; ATYPICAL LYMPHOCYTE FLAG 10 (0-99); FRAGMENT RBC FLAG 0 (0-99); HEMATOCRIT 31.3 % (40.0-51.0); HEMOGLOBIN 10.4 g/dL (13.7-17.5); LEFT SHIFT FLG 10 (0-99); LIPEMIA HEMOLYSIS FLAG 80 (0-99); MEAN CELL HEMOGLOBIN CONCENTR. 33.2 g/dL (32.4-36.7); MEAN CELL VOLUME 93.4 fL (81.5-99.8); MEAN PLATELET VOLUME 9.7 fL (8.7-11.7); PLATELET CLUMPS FLAG 0 (0-99); PLATELET COUNT 294 10^3/uL (150-400); RED BLOOD CELL COUNT 3.35 10^6/uL (4.40-6.38)
--- NOTE | 2017-06-08 05:56 | SOAPPROG ---
SOAP Progress Note Assessment/Plan: Assessment/Plan: 87-year-old gentleman status post laparoscopic lysis of adhesions with repair of enterotomy. The patient became confused postoperatively and then went into oliguric renal failure and subsequently became hypotensive. Shock ?septic responded to vasopressor medication and fluid hydration. Aspirated Intubated with normal bronchoscopy 05/27 Increased wbc over the weekend now improving post abscess drainage CT guided drainage for organ space abscess positive for Gm + fermenting jon - on Zosyn E coli EBL/Klebsiella sensitive to zosyn Nye placed for bladder outlet obstruction with diuresis Abd benign. Lower midline draining seropurulent Gelacio seropurulent less than 06/07 Blood cx negative leucocytosis 19K fluid overload better with decreasing CR post nye Deep organ and superficial space infections OOB Renal u/s no obstruction ambulate/encourage IS/PO tolerating po Continue abx Oral anagesics watch renal fn CT scan oral contrast only to determine if enterocutaneous fistula exists Anticipate d/c in next 72 hr if continues to improve 06/04/17 19:11 06/05/17 22:41 06/06/17 09:01 06/08/17 05:53 Objective: Vital Signs Temp Pulse Resp BP Pulse Ox 36.6 C 72 16 148/52 H 91 L 06/08/17 03:31 06/08/17 03:31 06/08/17 03:31 06/08/17 03:31 06/08/17 03:31 Microbiology 06/03/17 11:55 Gram Stain - Final Abdomen - Aspirate Laboratory Results 06/08/17 05:27 06/06/17 06/07/17 06/08/17 05:59 05:59 05:59 Intake Total 176 216 4713 Output Total 1430 2445 3600 Balance -780 -2295 -2430 PT 17.1 SEC (12.0-15.0) H 06/03/17 09:55 INR 1.40 (0.83-1.16) H 06/03/17 09:55 ICD10 Worksheet Patient Problems: Problems Problem Status Onset Abdominal pain Acute ESBL (extended spectrum beta-lactamase) producing bacteria infection Acute ~ Partial small bowel obstruction Acute
[2017-06-08 05:57] LABS: ALBUMIN 2.6 g/dL (3.5-5.0); ANION GAP 12 mEq/L (8-16); CALCIUM 8.3 mg/dL (8.5-10.4); CARBON DIOXIDE 31 mEq/l (22-31); CHLORIDE 101 mEq/L (97-110); CREATININE 2.4 mg/dL (0.7-1.3); GLOMERULAR FILTRATION RATE 26; GLUCOSE 77 mg/dL (70-100); MAGNESIUM 1.6 mg/dL (1.6-2.3); POTASSIUM 3.5 mEq/L (3.5-5.2); SODIUM 144 mEq/L (134-144)
[2017-06-08] MEDS: CLOTRIMAZOLE 1% 15 GM CRTUBE TP SCH ×2 (08:38→22:20)
[2017-06-08] MEDS: VANICREAM CREAM TP SCH (08:44)
[2017-06-08] MEDS ORDERED: POTASSIUM CL 10 MEQ TAB PO ONE (09:09)
[2017-06-08] MEDS: FUROSEMIDE 40 MG/4 ML VIAL IVP SCH ×2 (09:14→16:08)
[2017-06-08] MEDS: APIXABAN 2.5 MG TAB PO SCH ×2 (09:14→20:21)
[2017-06-08] MEDS: clonazePAM 0.5 MG TAB TUBE SCH ×3 (09:14→18:12)
[2017-06-08] MEDS: ALLOPURINOL 100 MG TAB PO SCH (09:14)
[2017-06-08] MEDS: TAMSULOSIN HCL 0.4 MG CAP PO SCH (09:15)
[2017-06-08] MEDS: buPROPion 100 MG TAB PO SCH ×3 (09:16→18:12)
[2017-06-08] MEDS: FLUTICASONE NASAL 120 SPRAYS/16 GM MDI EACHNARE SCH (09:16)
--- NOTE | 2017-06-08 10:56 | SOAPPROG ---
SOAP Progress Note Assessment/Plan: Assessment: 1. DAISY. Likely ATN due to postop hypotension. B/l creat 0.8. Creat back down to 2.4, BUN improving. Good UOP after nye, appears to have had some urinary retention. Diuresis may also represent recovery from ATN after rx of abdom abscess. 2. Anasarca. Continue diuresis with IV lasix BID for now. Continue nye. 3. Abdominal abscess. Improving with drainage, abx. Plan: 06/02/17 13:53 06/02/17 13:55 06/02/17 13:56 06/03/17 11:14 06/08/17 10:53 06/08/17 10:54 Subjective: Feels very tired. Nye placed with good uop afterwards. Objective: Vital Signs Temp Pulse Resp BP Pulse Ox 36.9 C 81 16 115/64 94 06/08/17 08:00 06/08/17 08:00 06/08/17 08:00 06/08/17 08:00 06/08/17 08:00 Microbiology 06/03/17 11:55 Gram Stain - Final Abdomen - Aspirate Laboratory Results 06/08/17 05:27 06/08/17 05:27 06/07/17 06/08/17 06/09/17 05:59 05:59 05:59 Intake Total 150 1170 Output Total 2445 4500 300 Balance -2295 -3330 -300 PT 17.1 SEC (12.0-15.0) H 06/03/17 09:55 INR 1.40 (0.83-1.16) H 06/03/17 09:55 Debilitated elderly male, NAD, in bed RRR, no m/g/r CTAB Abdom obese, nontender 2+ LE edema +nye in place L ANDREY drain with minimal seropurulent drng ICD10 Worksheet Patient Problems: Problems Problem Status Onset ESBL (extended spectrum beta-lactamase) producing bacteria infection Acute ~ Partial small bowel obstruction Acute Abdominal pain Acute
[2017-06-08] MEDS: oxyCODONE IR 5 MG TAB PO PRN ×2 (13:38→14:10)
--- NOTE | 2017-06-08 13:51 | HOSPPROG ---
Hospitalist Progress Note Assessment/Plan: SBO s/p SOMMER with worsening leukocytosis and fluid collection on CT s/p ct guided drain placement 06/03 (feeling better since procedure) -cont zosyn for now -drain care per surgery still w ileus moved bowels Acute respiratory failure - now extubated with Aspiration PNA and septic shock ( resolved) -I reviewed cxr negative for pna continue IS ARF - likely ATN due to sepsis/hypotension -creatinine stable - renal following cr stabilized Volume overload - decreased scrotal edema -continue IV lasix nye placed Troponin bump - demand ischemia due to sepsis -no further work-up per cards Afib/PCM -Eliquis at reduced dose until renal function improved (currently in prep for procedure today) LAKESHA - CPAP Increased LFT - likely due to sepsis (resolved) will continue to follow along with you. send cbc/com tomorrow Subjective: moved bowels Objective: Vital Signs Temp Pulse Resp BP Pulse Ox 36.9 C 75 20 145/70 H 96 06/08/17 11:33 06/08/17 11:33 06/08/17 11:33 06/08/17 11:33 06/08/17 11:33 Microbiology 06/03/17 11:55 Gram Stain - Final Abdomen - Aspirate Laboratory Results 06/08/17 05:27 06/08/17 05:27 06/07/17 06/08/17 06/09/17 05:59 05:59 05:59 Intake Total 150 1170 Output Total 2445 4500 300 Balance -2295 -3330 -300 PT 17.1 SEC (12.0-15.0) H 06/03/17 09:55 INR 1.40 (0.83-1.16) H 06/03/17 09:55 - Physical Exam Constitutional: no apparent distress, appears nourished Eyes: PERRL, anicteric sclera Ears, Nose, Mouth, Throat: moist mucous membranes, hearing normal Cardiovascular: regular rate and rhythym, no murmur, rub, or gallop Respiratory: no respiratory distress, no rales or rhonchi Gastrointestinal: normoactive bowel sounds, soft, non-tender abdomen Genitourinary: no bladder fullness, No nye in urethra Skin: warm, normal color Musculoskeletal: full muscle strength, no muscle tenderness Neurologic: AAOx3, sensation intact bilaterally Psychiatric: interacting appropriately, not anxious Lymph, Heme, Immunologic: no cervical LAD ICD10 Worksheet Patient Problems: Problems Problem Status Onset Abdominal pain Acute ESBL (extended spectrum beta-lactamase) producing bacteria infection Acute ~ Partial small bowel obstruction Acute
[2017-06-08] MEDS ORDERED: IOPAMIDOL (ISOVUE-300) 150 ML BTL ONE (15:01)
[2017-06-08] MEDS: ATORVASTATIN CALCIUM 20 MG TAB PO SCH (20:21)
[2017-06-08] MEDS: traZODone 100 MG TAB TUBE SCH (20:21)
[2017-06-08] MEDS: DUTASTERIDE 0.5 MG CAP PO SCH (20:21)
[2017-06-09] MEDS: PIPERACILLIN/TAZO 2.25 GM/DEX 50 ML IV SCH ×5 (00:02→23:45)
[2017-06-09 06:06] LABS: % IMMATURE GRANULYOCYTES 0.8 % (0.0-1.1); ABSOLUTE IMMATURE GRANULOCYTES 0.12 10^3/uL (0.00-0.10); ADD DIFF? NO; ADD MORPH? NO; ADD SCAN? NO; ATYPICAL LYMPHOCYTE FLAG 0 (0-99); FRAGMENT RBC FLAG 0 (0-99); HEMATOCRIT 30.1 % (40.0-51.0); LEFT SHIFT FLG 0 (0-99); LIPEMIA HEMOLYSIS FLAG 80 (0-99); MEAN CELL HEMOGLOBIN 31.2 pg (27.9-34.1); MEAN CELL HEMOGLOBIN CONCENTR. 33.2 g/dL (32.4-36.7); MEAN CELL VOLUME 93.8 fL (81.5-99.8); MEAN PLATELET VOLUME 9.5 fL (8.7-11.7); PLATELET CLUMPS FLAG 0 (0-99); PLATELET COUNT 283 10^3/uL (150-400); RED BLOOD CELL COUNT 3.21 10^6/uL (4.40-6.38); RED CELL DISTRIBUTION WIDTH 14.7 % (11.5-15.2)
[2017-06-09 06:37] LABS: ALBUMIN 2.7 g/dL (3.5-5.0); ANION GAP 13 mEq/L (8-16); CALCIUM 8.2 mg/dL (8.5-10.4); CARBON DIOXIDE 33 mEq/l (22-31); CHLORIDE 98 mEq/L (97-110); CREATININE 2.4 mg/dL (0.7-1.3); GLOMERULAR FILTRATION RATE 26; GLUCOSE 101 mg/dL (70-100); POTASSIUM 3.4 mEq/L (3.5-5.2); SODIUM 144 mEq/L (134-144)
--- NOTE | 2017-06-09 08:04 | SOAPPROG ---
SOAP Progress Note Assessment/Plan: Assessment/Plan: 87-year-old gentleman status post laparoscopic lysis of adhesions with repair of enterotomy. The patient became confused postoperatively and then went into oliguric renal failure and subsequently became hypotensive. Shock ?septic responded to vasopressor medication and fluid hydration. Aspirated Intubated with normal bronchoscopy 05/27 Increased wbc over the weekend now improving post abscess drainage CT guided drainage for organ space abscess positive for Gm + fermenting jon - on Zosyn E coli EBL/Klebsiella sensitive to zosyn Nye placed for bladder outlet obstruction with diuresis Abd benign. Lower midline minimal seropurulent Gelacio seropurulent less than 06/08 Blood cx negative leucocytosis 14K fluid overload better with decreasing CR post nye stable 2.4 Deep organ and superficial space infections OOB Renal u/s no obstruction ambulate/encourage IS/PO tolerating po Continue abx until WBC normalizes (may need PICC out) Oral anagesics abscess study no Anticipate d/c Sunday d/c nye now on Flomax >48 hr replace for retention (monitor Cr in house) 06/09/17 08:01 Objective: Vital Signs Temp Pulse Resp BP Pulse Ox 36.5 C 79 20 125/64 H 94 06/09/17 04:00 06/09/17 04:00 06/09/17 04:00 06/09/17 04:00 06/09/17 04:00 Microbiology 06/03/17 11:55 Gram Stain - Final Abdomen - Aspirate Laboratory Results 06/09/17 04:55 06/09/17 04:55 06/08/17 06/09/17 06/10/17 05:59 05:59 05:59 Intake Total 1170 1400 Output Total 4500 2160 Balance -3330 -760 PT 17.1 SEC (12.0-15.0) H 06/03/17 09:55 INR 1.40 (0.83-1.16) H 06/03/17 09:55 ICD10 Worksheet Patient Problems: Problems Problem Status Onset Abdominal pain Acute ESBL (extended spectrum beta-lactamase) producing bacteria infection Acute ~ Partial small bowel obstruction Acute
[2017-06-09] MEDS ORDERED: POTASSIUM CL 10 MEQ TAB PO ONE ×2 (10:02→21:15)
[2017-06-09] MEDS: buPROPion 100 MG TAB PO SCH ×3 (10:04→18:20)
[2017-06-09] MEDS: ALLOPURINOL 100 MG TAB PO SCH (10:04)
[2017-06-09] MEDS: APIXABAN 2.5 MG TAB PO SCH ×2 (10:05→20:16)
[2017-06-09] MEDS: clonazePAM 0.5 MG TAB TUBE SCH ×3 (10:05→18:22)
[2017-06-09] MEDS: TAMSULOSIN HCL 0.4 MG CAP PO SCH (10:05)
[2017-06-09] MEDS: FUROSEMIDE 40 MG/4 ML VIAL IVP SCH (10:07)
[2017-06-09] MEDS ORDERED: POTASSIUM CL 20 MEQ TAB PO ONE (10:22)
[2017-06-09] MEDS ORDERED: POTASSIUM CL 20 MEQ/15 ML UDCUP PO ONE (10:30)
[2017-06-09] MEDS: VANICREAM CREAM TP SCH (10:41)
[2017-06-09] MEDS: CLOTRIMAZOLE 1% 15 GM CRTUBE TP SCH ×2 (10:43→20:17)
[2017-06-09] MEDS: oxyCODONE IR 5 MG TAB PO PRN (10:44)
[2017-06-09] MEDS: FLUTICASONE NASAL 120 SPRAYS/16 GM MDI EACHNARE SCH (10:44)
--- NOTE | 2017-06-09 13:04 | HOSPPROG ---
Hospitalist Progress Note Assessment/Plan: SBO s/p SOMMER abscess drained -cont zosyn for now -drain care per surgery now w present bowel sounds and moved bowels Acute respiratory failure - now extubated with Aspiration PNA and septic shock ( resolved) -I reviewed cxr negative for pna continue IS OOB TID ARF - likely ATN due to sepsis/hypotension -creatinine stable - renal following cr stabilized, elevated Volume overload - decreased scrotal edema -continue IV lasix; changed to once daily nye: removed Troponin bump - demand ischemia due to sepsis -no further work-up per cards Afib/PCM -Eliquis at reduced dose until renal function improved (currently in prep for procedure today) LAKESHA - CPAP Increased LFT - likely due to sepsis (resolved) will continue to follow along with you. send cbc/com tomorrow Subjective: nursing notes a bit of struge w pills Objective: Vital Signs Temp Pulse Resp BP Pulse Ox 36.9 C 62 18 117/59 L 97 06/09/17 11:28 06/09/17 11:28 06/09/17 11:28 06/09/17 11:28 06/09/17 11:28 Microbiology 06/03/17 11:55 Gram Stain - Final Abdomen - Aspirate Laboratory Results 06/09/17 04:55 06/09/17 04:55 06/08/17 06/09/17 06/10/17 05:59 05:59 05:59 Intake Total 1170 1400 Output Total 4500 2160 Balance -3330 -760 PT 17.1 SEC (12.0-15.0) H 06/03/17 09:55 INR 1.40 (0.83-1.16) H 06/03/17 09:55 - Physical Exam Constitutional: no apparent distress, appears nourished Eyes: PERRL, anicteric sclera Ears, Nose, Mouth, Throat: moist mucous membranes, hearing normal Cardiovascular: regular rate and rhythym, no murmur, rub, or gallop Respiratory: no respiratory distress, no rales or rhonchi Gastrointestinal: normoactive bowel sounds, soft, non-tender abdomen, distension Genitourinary: no bladder fullness, No nye in urethra Skin: warm, normal color Musculoskeletal: full muscle strength, no muscle tenderness Neurologic: AAOx3, sensation intact bilaterally Psychiatric: interacting appropriately ICD10 Worksheet Patient Problems: Problems Problem Status Onset Abdominal pain Acute ESBL (extended spectrum beta-lactamase) producing bacteria infection Acute ~ Partial small bowel obstruction Acute
--- NOTE | 2017-06-09 15:11 | SOAPPROG ---
SOAP Progress Note Assessment/Plan: Assessment/Plan: DAISY: likely ATN in setting of post-op shock, which has now improved. Cr peaked at 3.1, down to 2.1 and then calixto to mid-2 range in setting of diuresis, now 2.4. - No need for HD. - Will continue IV Lasix, will change to daily dosing. - Avoid hypotension and nephrotoxins. - Will continue to monitor. Hypervolemia: much improved, will continue IV Lasix daily instead of BID. Hypokalemia: Additional KCL given today, will continue to monitor. Subjective: No acute events overnight. Pt notes that his swelling is improved and scrotum not as swollen, has no complaints today. Objective: Vital Signs Temp Pulse Resp BP Pulse Ox 36.9 C 62 18 117/59 L 97 06/09/17 11:28 06/09/17 11:28 06/09/17 11:28 06/09/17 11:28 06/09/17 11:28 Microbiology 06/03/17 11:55 Gram Stain - Final Abdomen - Aspirate Laboratory Results 06/09/17 04:55 06/09/17 04:55 06/08/17 06/09/17 06/10/17 05:59 05:59 05:59 Intake Total 1170 1400 Output Total 4500 2160 100 Balance -3330 -760 -100 PT 17.1 SEC (12.0-15.0) H 06/03/17 09:55 INR 1.40 (0.83-1.16) H 06/03/17 09:55 General: alert and oriented, no acute distress Eyes; EOMI, PERRL OP: clear CV: RRR Resp: nonlabored respirations on NC Abd; Soft, NT Ext: +1 edema BLE Neuro; CN II-XII Grossly intact, no asterixis Psych; cooperative, appropriate mood and affect ICD10 Worksheet Patient Problems: Problems Problem Status Onset Abdominal pain Acute ESBL (extended spectrum beta-lactamase) producing bacteria infection Acute ~ Partial small bowel obstruction Acute
[2017-06-09] MEDS: clonazePAM 0.5 MG TAB PO SCH (18:20)
[2017-06-09] MEDS: traZODone 100 MG TAB TUBE SCH (20:16)
[2017-06-09] MEDS: ATORVASTATIN CALCIUM 20 MG TAB PO SCH (20:16)
[2017-06-09] MEDS: DUTASTERIDE 0.5 MG CAP PO SCH (20:16)
[2017-06-09 21:05] LABS: POTASSIUM 3.2 mEq/L (3.5-5.2)
[2017-06-10] MEDS: PIPERACILLIN/TAZO 2.25 GM/DEX 50 ML IV SCH ×3 (05:50→17:46)
[2017-06-10 06:12] LABS: % IMMATURE GRANULYOCYTES 0.7 % (0.0-1.1); ADD DIFF? NO; ADD MORPH? NO; ADD SCAN? NO; ATYPICAL LYMPHOCYTE FLAG 10 (0-99); FRAGMENT RBC FLAG 0 (0-99); HEMATOCRIT 29.3 % (40.0-51.0); HEMOGLOBIN 9.7 g/dL (13.7-17.5); LEFT SHIFT FLG 0 (0-99); LIPEMIA HEMOLYSIS FLAG 80 (0-99); MEAN CELL HEMOGLOBIN 31.1 pg (27.9-34.1); MEAN CELL HEMOGLOBIN CONCENTR. 33.1 g/dL (32.4-36.7); MEAN CELL VOLUME 93.9 fL (81.5-99.8); MEAN PLATELET VOLUME 9.8 fL (8.7-11.7); PLATELET CLUMPS FLAG 10 (0-99); PLATELET COUNT 269 10^3/uL (150-400); RED BLOOD CELL COUNT 3.12 10^6/uL (4.40-6.38); RED CELL DISTRIBUTION WIDTH 14.7 % (11.5-15.2)
[2017-06-10 06:29] LABS: ALBUMIN 2.7 g/dL (3.5-5.0); ANION GAP 11 mEq/L (8-16); CALCIUM 8.2 mg/dL (8.5-10.4); CARBON DIOXIDE 33 mEq/l (22-31); CHLORIDE 98 mEq/L (97-110); CREATININE 2.3 mg/dL (0.7-1.3); GLOMERULAR FILTRATION RATE 27; GLUCOSE 88 mg/dL (70-100); POTASSIUM 3.6 mEq/L (3.5-5.2); SODIUM 142 mEq/L (134-144)
[2017-06-10] MEDS: FLUTICASONE NASAL 120 SPRAYS/16 GM MDI EACHNARE SCH (09:00)
[2017-06-10] MEDS ORDERED: FUROSEMIDE 40 MG/4 ML VIAL IVP SCH (09:00)
[2017-06-10] MEDS: VANICREAM CREAM TP SCH (09:00)
[2017-06-10] MEDS: buPROPion 100 MG TAB PO SCH ×3 (09:17→18:05)
[2017-06-10] MEDS: TAMSULOSIN HCL 0.4 MG CAP PO SCH (09:22)
[2017-06-10] MEDS: APIXABAN 2.5 MG TAB PO SCH ×2 (09:22→20:24)
[2017-06-10] MEDS: clonazePAM 0.5 MG TAB PO SCH ×3 (09:23→18:05)
[2017-06-10] MEDS: ALLOPURINOL 100 MG TAB PO SCH (09:23)
[2017-06-10] MEDS: CLOTRIMAZOLE 1% 15 GM CRTUBE TP SCH ×2 (09:43→20:43)
[2017-06-10] MEDS ORDERED: POTASSIUM CL 10 MEQ TAB PO ONE ×2 (09:47→20:51)
--- NOTE | 2017-06-10 10:27 | SOAPPROG ---
SOAP Progress Note Assessment/Plan: Assessment/Plan: DAISY: likely ATN in setting of post-op shock, which has now improved. Cr peaked at 3.1, down to 2.1 and then calixto to mid-2 range in setting of diuresis, now slowly downtrending to 2.3 today. - No need for HD. - Will change Lasix to PO dosing. - Avoid hypotension and nephrotoxins. - Will continue to monitor. Hypervolemia: much improved, will change Lasix to PO and continue to monitor. Hypokalemia: K improved to 3.6, will continue to replace as needed. Subjective: No acute events overnight. Pt states that he feels well, mostly does not like to be jostled around in bed. He notes that his swelling is no worse and breathing is comfortable. Objective: Vital Signs Temp Pulse Resp BP Pulse Ox 36.6 C 69 16 133/59 H 96 06/10/17 08:00 06/10/17 08:00 06/10/17 08:00 06/10/17 08:00 06/10/17 08:00 Microbiology 06/03/17 11:55 Gram Stain - Final Abdomen - Aspirate Anaerobic Culture - Final Klebsiella Pneumoniae Ssp Pneu Escherichia Coli Esbl Enterococcus Faecium Laboratory Results 06/10/17 06:00 06/10/17 06:00 06/09/17 06/10/17 06/11/17 05:59 05:59 05:59 Intake Total 1400 Output Total 2160 370 180 Balance -760 -370 -180 PT 17.1 SEC (12.0-15.0) H 06/03/17 09:55 INR 1.40 (0.83-1.16) H 06/03/17 09:55 General: alert and oriented, no acute distress Eyes; EOMI, PERRL OP: clear CV; RRR Resp: nonlabored respiraitons on NC Abd: Soft, NT Ext: +1 edema BLE Neuro: CN II-XII grossly intact, no asterixis Psych: cooperative, appropriate mood and affect ICD10 Worksheet Patient Problems: Problems Problem Status Onset Abdominal pain Acute ESBL (extended spectrum beta-lactamase) producing bacteria infection Acute ~ Partial small bowel obstruction Acute
[2017-06-10] MEDS: oxyCODONE IR 5 MG TAB PO PRN (11:47)
--- NOTE | 2017-06-10 13:01 | HOSPPROG ---
Hospitalist Progress Note Assessment/Plan: SBO s/p SOMMER abscess drained -cont zosyn for now -drain care per surgery now w present bowel sounds and moved bowels Acute respiratory failure - now extubated with Aspiration PNA and septic shock ( resolved) -I reviewed cxr negative for pna continue IS OOB TID ARF - likely ATN due to sepsis/hypotension -creatinine stable, trending down diuretics decreased as less volume overloaded - renal following Volume overload - decreased scrotal edema as above ;lasix now po daily nye: removed Troponin bump - demand ischemia due to sepsis -no further work-up per cards Afib/PCM -Eliquis at reduced dose until renal function improved (currently in prep for procedure today) LAKESHA - CPAP Increased LFT - likely due to sepsis (resolved) will continue to follow along with you. Subjective: case d/w dr interiano. more alert. eating Objective: Vital Signs Temp Pulse Resp BP Pulse Ox 36.5 C 74 18 126/60 H 94 06/10/17 11:49 06/10/17 11:49 06/10/17 11:49 06/10/17 11:49 06/10/17 11:49 Microbiology 06/03/17 11:55 Gram Stain - Final Abdomen - Aspirate Anaerobic Culture - Final Klebsiella Pneumoniae Ssp Pneu Escherichia Coli Esbl Enterococcus Faecium Laboratory Results 06/10/17 06:00 06/10/17 06:00 06/09/17 06/10/17 06/11/17 05:59 05:59 05:59 Intake Total 1400 Output Total 2160 370 180 Balance -760 -370 -180 PT 17.1 SEC (12.0-15.0) H 06/03/17 09:55 INR 1.40 (0.83-1.16) H 06/03/17 09:55 - Physical Exam Constitutional: no apparent distress, appears nourished Eyes: PERRL, anicteric sclera Ears, Nose, Mouth, Throat: moist mucous membranes, hearing normal Cardiovascular: regular rate and rhythym, no murmur, rub, or gallop, No tachycardia Respiratory: no respiratory distress, no rales or rhonchi Gastrointestinal: normoactive bowel sounds, distension, No guarding, No rebound Genitourinary: no bladder fullness, No nye in urethra Skin: warm, normal color Musculoskeletal: full muscle strength, no muscle tenderness Neurologic: AAOx3 ICD10 Worksheet Patient Problems: Problems Problem Status Onset Abdominal pain Acute ESBL (extended spectrum beta-lactamase) producing bacteria infection Acute ~ Partial small bowel obstruction Acute
--- NOTE | 2017-06-10 13:09 | SOAPPROG ---
SOAP Progress Note Assessment/Plan: Assessment: no complaints. no pain. afebrile. comfortable. abd nontender. ANDREY old sang - no bile. doing very well. ARF improving. WBC 13 - improving. drain out prior to discharge. rehab planning for tomorrow. c/o scrotal pain/swelling. min abd pain. afebrile. comfortable. abd soft, incis clean - wound exudate/hyperemia unchanged. for CT drainage today. discussed procedure with patient and family at bedside. eliquis on hold prior - can resume postprocedure. hypo K - supplementation in process. resume diet after procedure as well. no complaints. pain controlled. no nausea or vomiting. afebrile. comfortable. abd dist, soft. midline incis with fibrinous exudate and hyperemia. no purulence. notable penile/scrotal edema and lower extr edema. wbc 20. s/p mone/enterotomy repair/arf/resolved resp failure. clinically doing well. CT today to r/o abscess given progressively increasing leucocytosis. discussed with hospitalist and family at bedside. Plan: 05/24/17 07:43 06/02/17 12:30 06/03/17 09:44 06/10/17 13:08 Objective: Vital Signs Temp Pulse Resp BP Pulse Ox 36.5 C 74 18 126/60 H 94 06/10/17 11:49 06/10/17 11:49 06/10/17 11:49 06/10/17 11:49 06/10/17 11:49 Microbiology 06/03/17 11:55 Gram Stain - Final Abdomen - Aspirate Anaerobic Culture - Final Klebsiella Pneumoniae Ssp Pneu Escherichia Coli Esbl Enterococcus Faecium Laboratory Results 06/10/17 06:00 06/10/17 06:00 06/09/17 06/10/17 06/11/17 05:59 05:59 05:59 Intake Total 1400 Output Total 2160 370 180 Balance -760 -370 -180 PT 17.1 SEC (12.0-15.0) H 06/03/17 09:55 INR 1.40 (0.83-1.16) H 06/03/17 09:55 ICD10 Worksheet Patient Problems: Problems Problem Status Onset Abdominal pain Acute ESBL (extended spectrum beta-lactamase) producing bacteria infection Acute ~ Partial small bowel obstruction Acute
[2017-06-10] MEDS: FUROSEMIDE 40 MG TAB PO SCH (14:48)
[2017-06-10] MEDS: DUTASTERIDE 0.5 MG CAP PO SCH (20:24)
[2017-06-10] MEDS: ATORVASTATIN CALCIUM 20 MG TAB PO SCH (20:24)
[2017-06-10] MEDS: traZODone 100 MG TAB TUBE SCH (20:25)
[2017-06-10 20:40] LABS: POTASSIUM 3.6 mEq/L (3.5-5.2)
[2017-06-11] MEDS: PIPERACILLIN/TAZO 2.25 GM/DEX 50 ML IV SCH ×5 (00:35→23:53)
[2017-06-11 04:32] LABS: % IMMATURE GRANULYOCYTES 0.8 % (0.0-1.1); ABSOLUTE IMMATURE GRANULOCYTES 0.11 10^3/uL (0.00-0.10); ADD DIFF? NO; ADD MORPH? NO; ADD SCAN? NO; ATYPICAL LYMPHOCYTE FLAG 10 (0-99); FRAGMENT RBC FLAG 0 (0-99); HEMATOCRIT 29.7 % (40.0-51.0); HEMOGLOBIN 9.7 g/dL (13.7-17.5); LEFT SHIFT FLG 10 (0-99); LIPEMIA HEMOLYSIS FLAG 80 (0-99); MEAN CELL HEMOGLOBIN CONCENTR. 32.7 g/dL (32.4-36.7); MEAN CELL VOLUME 94.9 fL (81.5-99.8); MEAN PLATELET VOLUME 9.7 fL (8.7-11.7); PLATELET CLUMPS FLAG 0 (0-99); PLATELET COUNT 247 10^3/uL (150-400); RED BLOOD CELL COUNT 3.13 10^6/uL (4.40-6.38); RED CELL DISTRIBUTION WIDTH 14.6 % (11.5-15.2)
[2017-06-11 04:50] LABS: ALBUMIN 2.6 g/dL (3.5-5.0); ANION GAP 11 mEq/L (8-16); CALCIUM 8.2 mg/dL (8.5-10.4); CARBON DIOXIDE 34 mEq/l (22-31); CHLORIDE 96 mEq/L (97-110); CREATININE 2.3 mg/dL (0.7-1.3); GLOMERULAR FILTRATION RATE 27; GLUCOSE 80 mg/dL (70-100); POTASSIUM 3.4 mEq/L (3.5-5.2); SODIUM 141 mEq/L (134-144)
--- NOTE | 2017-06-11 09:30 | HOSPPROG ---
Hospitalist Progress Note Assessment/Plan: DIAGNOSES: SBO s/p SOMMER; abscess drained -cont zosyn for now (day 9) -drain care per surgery now w present bowel sounds and moved bowels Severe deconditioning, weakness, gait instability Anorexia, protein calorie malnutrition Acute respiratory failure - now extubated with Aspiration PNA and septic shock ( resolved) ARF - likely ATN due to sepsis/hypotension -creatinine stable Volume overload - decreased scrotal edema as above; lasix now po daily Troponin bump - demand ischemia due to sepsis -no further work-up per cards Afib/PCM -Eliquis at reduced dose due to renal function LAKESHA - CPAP Increased LFT - likely due to sepsis (resolved) PLANS: -continue efforts to increase po intake -continue efforts to increase activity -will try to minimize narcotic as able as reports he is barely arousable after doses -continue diuresis -continue zosyn, likely one more day will discuss w Dr Bridges -follow renal fxn closely SUBJECTIVE: feels very weak little pain while in bed but some L hip area pain w attempted standing no nausea no fever sxs reports pain meds making him severely sedated OBJECTIVE: Vitals stable no fever Exam: alert, seems oriented looks very weak skin warm dry color ok resps easy lungs few rales abd soft nondistended, wounds look ok, not very tender drain w serosanqjinous some edema of legs persists labs reviewed Objective: Vital Signs Temp Pulse Resp BP Pulse Ox 36.8 C 66 18 122/59 H 96 06/11/17 07:44 06/11/17 07:44 06/11/17 07:44 06/11/17 07:44 06/11/17 07:44 Microbiology 06/03/17 11:55 Gram Stain - Final Abdomen - Aspirate Anaerobic Culture - Final Klebsiella Pneumoniae Ssp Pneu Escherichia Coli Esbl Enterococcus Faecium Laboratory Results 06/11/17 04:15 06/11/17 04:15 06/10/17 06/11/17 06/12/17 06:59 06:59 06:59 Intake Total 191 Output Total 550 405 Balance -550 -214 PT 17.1 SEC (12.0-15.0) H 06/03/17 09:55 INR 1.40 (0.83-1.16) H 06/03/17 09:55 - Time Spent With Patient Time Spent with Patient: greater than 35 minutes Time Spent with Patient: Greater than 35 minutes spent on this patients care, greater than 50% of time spent counseling, educating, and coordinating care regarding the above mentioned plan. ICD10 Worksheet Patient Problems: Problems Problem Status Onset Abdominal pain Acute ESBL (extended spectrum beta-lactamase) producing bacteria infection Acute ~ Partial small bowel obstruction Acute
--- NOTE | 2017-06-11 09:40 | SOAPPROG ---
SOAP Progress Note Assessment/Plan: Assessment: 1. DAISY. Likely ATN due to postop hypotension. B/l creat 0.8. Creat has plateaued at 2.3, BUN improving. Webber now out, uop dropped off, unclear if this is being accurately recorded. Check PVRs. On flomax/avodart. 2. Edema. Appears to be largely resolved. HCO3 up to 34. Will d/c lasix for now to avoid overdiuresis, may need to resume. 3. Abdominal abscess. S/p drainage, on abx. 4. Lethargy. May be d/t pain meds, poor sleep cycle. Caregiver to discuss with primary service. Work on PT, OOB to chair, etc. Plan: 06/11/17 09:43 Subjective: Per his caregiver gets very lethargic after pain meds. Swelling much better. Objective: Vital Signs Temp Pulse Resp BP Pulse Ox 36.8 C 66 18 122/59 H 96 06/11/17 07:44 06/11/17 07:44 06/11/17 07:44 06/11/17 07:44 06/11/17 07:44 Microbiology 06/03/17 11:55 Gram Stain - Final Abdomen - Aspirate Anaerobic Culture - Final Klebsiella Pneumoniae Ssp Pneu Escherichia Coli Esbl Enterococcus Faecium Laboratory Results 06/11/17 04:15 06/11/17 04:15 06/10/17 06/11/17 06/12/17 05:59 05:59 05:59 Intake Total 191 Output Total 370 585 Balance -370 -394 PT 17.1 SEC (12.0-15.0) H 06/03/17 09:55 INR 1.40 (0.83-1.16) H 06/03/17 09:55 Lethargic, quickly falls back to sleep during exam RRR, no m/g/r CTAB Abdom obese, nontender Scrotal edema resolved and 1+ sacral/LE edema ICD10 Worksheet Patient Problems: Problems Problem Status Onset ESBL (extended spectrum beta-lactamase) producing bacteria infection Acute ~ Partial small bowel obstruction Acute Abdominal pain Acute
[2017-06-11] MEDS: TAMSULOSIN HCL 0.4 MG CAP PO SCH (09:58)
[2017-06-11] MEDS: buPROPion 100 MG TAB PO SCH ×3 (09:59→17:57)
[2017-06-11] MEDS: APIXABAN 2.5 MG TAB PO SCH ×2 (09:59→20:46)
[2017-06-11] MEDS: clonazePAM 0.5 MG TAB PO SCH ×3 (09:59→17:57)
[2017-06-11] MEDS: FUROSEMIDE 40 MG TAB PO SCH (09:59)
[2017-06-11] MEDS: ALLOPURINOL 100 MG TAB PO SCH (09:59)
[2017-06-11] MEDS: FLUTICASONE NASAL 120 SPRAYS/16 GM MDI EACHNARE SCH (10:01)
[2017-06-11] MEDS: CLOTRIMAZOLE 1% 15 GM CRTUBE TP SCH ×2 (10:01→20:48)
[2017-06-11] MEDS: VANICREAM CREAM TP SCH (10:02)
--- NOTE | 2017-06-11 10:06 | WOCRNPDOC ---
WOCRN Advanced Assessment Note - Skin Integrity Problem, Advanced Assess Gluteal Cleft Dressing Type: Open to Air Wound Bed Constitution: Healed Skin Integrity Problem Comment: Wound care will sign off. Continue preventative offloading and skin breakdown prevention measures. Right Coccyx Pressure Injury Dressing Type: Open to Air Wound Bed Constitution: Healed Skin Integrity Problem Comment: Wound care will sign off. Continue preventative offloading and skin breakdown prevention measures.
[2017-06-11] MEDS ORDERED: traMADol 50 MG TAB PO PRN (10:11)
[2017-06-11] MEDS ORDERED: POTASSIUM CL 10 MEQ TAB PO ONE ×2 (10:40→20:54)
--- NOTE | 2017-06-11 15:56 | SOAPPROG ---
SOAP Progress Note Assessment/Plan: Assessment/Plan: 87-year-old gentleman status post laparoscopic lysis of adhesions with repair of enterotomy. The patient became confused postoperatively and then went into oliguric renal failure and subsequently became hypotensive. Shock ?septic responded to vasopressor medication and fluid hydration. Aspirated Intubated with normal bronchoscopy 05/27 Increased wbc over the weekend now improving post abscess drainage CT guided drainage for organ space abscess positive for Gm + fermenting jon - on Zosyn E coli EBL/Klebsiella sensitive to zosyn Nye placed for bladder outlet obstruction with diuresis Abd benign. Lower midline minimal seropurulent Gelacio seropurulent less than 06/08 Blood cx negative leucocytosis 13K fluid overload better with decreasing CR post nye stable 2.4 Deep organ and superficial space infections OOB Renal u/s no obstruction ambulate/encourage IS/PO tolerating po Continue abx until WBC normalizes (may need PICC out) Oral analgesics abscess study no communication with intestine Anticipate d/c Wed yne out cr 2.3 06/09/17 08:01 06/11/17 15:55 Objective: Vital Signs Temp Pulse Resp BP Pulse Ox 36.6 C 64 16 118/46 L 96 06/11/17 15:11 06/11/17 15:11 06/11/17 15:11 06/11/17 15:11 06/11/17 15:11 Microbiology 06/03/17 11:55 Gram Stain - Final Abdomen - Aspirate Anaerobic Culture - Final Klebsiella Pneumoniae Ssp Pneu Escherichia Coli Esbl Enterococcus Faecium Laboratory Results 06/11/17 04:15 06/11/17 04:15 06/10/17 06/11/17 06/12/17 05:59 05:59 05:59 Intake Total 191 Output Total 370 585 30 Balance -370 -394 -30 PT 17.1 SEC (12.0-15.0) H 06/03/17 09:55 INR 1.40 (0.83-1.16) H 06/03/17 09:55 ICD10 Worksheet Patient Problems: Problems Problem Status Onset Abdominal pain Acute ESBL (extended spectrum beta-lactamase) producing bacteria infection Acute ~ Partial small bowel obstruction Acute
[2017-06-11 20:36] LABS: POTASSIUM 3.5 mEq/L (3.5-5.2)
[2017-06-11] MEDS: DUTASTERIDE 0.5 MG CAP PO SCH (20:46)
[2017-06-11] MEDS: ATORVASTATIN CALCIUM 20 MG TAB PO SCH (20:46)
[2017-06-11] MEDS: traZODone 100 MG TAB PO SCH (20:46)
[2017-06-12] MEDS: PIPERACILLIN/TAZO 2.25 GM/DEX 50 ML IV SCH ×3 (04:44→18:12)
[2017-06-12 05:26] LABS: ANION GAP 9 mEq/L (8-16); CALCIUM 8.3 mg/dL (8.5-10.4); CARBON DIOXIDE 35 mEq/l (22-31); CHLORIDE 98 mEq/L (97-110); CREATININE 2.3 mg/dL (0.7-1.3); GLOMERULAR FILTRATION RATE 27; GLUCOSE 122 mg/dL (70-100); POTASSIUM 3.6 mEq/L (3.5-5.2); SODIUM 142 mEq/L (134-144)
[2017-06-12] MEDS ORDERED: POTASSIUM CL 10 MEQ TAB PO ONE (10:04)
[2017-06-12] MEDS: APIXABAN 2.5 MG TAB PO SCH ×2 (10:37→20:21)
[2017-06-12] MEDS: clonazePAM 0.5 MG TAB PO SCH ×3 (10:38→18:13)
[2017-06-12] MEDS: ALLOPURINOL 100 MG TAB PO SCH (10:38)
[2017-06-12] MEDS: FLUTICASONE NASAL 120 SPRAYS/16 GM MDI EACHNARE SCH (10:38)
[2017-06-12] MEDS: buPROPion 100 MG TAB PO SCH ×3 (10:38→18:13)
[2017-06-12] MEDS: TAMSULOSIN HCL 0.4 MG CAP PO SCH (10:38)
[2017-06-12] MEDS: VANICREAM CREAM TP SCH (10:39)
[2017-06-12] MEDS: CLOTRIMAZOLE 1% 15 GM CRTUBE TP SCH ×2 (10:39→22:19)
--- NOTE | 2017-06-12 11:38 | HOSPPROG ---
Hospitalist Progress Note Assessment/Plan: DIAGNOSES: SBO s/p SOMMER; abscess drained -zosyn (day 10) -is eating better now, moving bowels Severe deconditioning, weakness, gait instability Left hip pain, uncertain etiology, appears to be interfering with physical therapy and mobility Anorexia, protein calorie malnutrition Acute respiratory failure - now extubated with Aspiration PNA and septic shock ( resolved) ARF - likely ATN due to sepsis/hypotension -creatinine stable Volume overload - decreased scrotal edema as above; lasix now po daily Troponin bump - demand ischemia due to sepsis -no further work-up per cards Afib/PCM -Eliquis at reduced dose due to renal function LAKESHA - CPAP Increased LFT - likely due to sepsis (resolved) PLANS: -will x-ray left hip to be certain no bony abnormalities, but exam would suggest this is more likely soft tissue pain -continue efforts to increase po intake -continue efforts to increase activity -continue to minimize narcotic as able as reports he is barely arousable after doses -continue diuresis -can probably discontinue zosyn, will discuss w Dr Brdiges -follow renal fxn closely SUBJECTIVE: Remains weak Again today complains of pain in the area of the left hip when the physical therapist move him and says this is limiting his therapies. He is unable to point to any specific area in the left hip region. He denies any falls or other injuries leading to this pain but says the pain was not present before admission. No other acute symptoms Is eating notably better the last 24 hours OBJECTIVE: Vitals stable no fever Exam: alert, seems oriented looks very weak skin warm dry color ok resps easy lungs few rales abd soft nondistended, wounds look ok, nontender drain has now been removed some mild edema of legs persists There is no pain with any rotation movements, flexion of the hip. With abduction of the left hip there is some pain in the medial upper thigh soft tissues that is poorly localized by the patient. I cannot reproduce that pain by palpation and cannot feel any abnormal findings on palpation. labs reviewed: Renal function unchanged creatinine 2.3 Objective: Vital Signs Temp Pulse Resp BP Pulse Ox 36.5 C 63 24 H 113/64 95 06/12/17 08:00 06/12/17 08:00 06/12/17 08:00 06/12/17 08:00 06/12/17 08:00 Microbiology 06/03/17 11:55 Mycobacterial Smear (JOYCE) - Final Abdomen - Aspirate Laboratory Results 06/11/17 04:15 06/12/17 04:43 06/11/17 06/12/17 06/13/17 06:59 06:59 06:59 Intake Total 191 680.9 Output Total 405 180 Balance -214 500.9 PT 17.1 SEC (12.0-15.0) H 06/03/17 09:55 INR 1.40 (0.83-1.16) H 06/03/17 09:55 ICD10 Worksheet Patient Problems: Problems Problem Status Onset Abdominal pain Acute ESBL (extended spectrum beta-lactamase) producing bacteria infection Acute ~ Partial small bowel obstruction Acute
--- NOTE | 2017-06-12 15:33 | SOAPPROG ---
SOAP Progress Note Assessment/Plan: Assessment: 1. arf: presumably ischemic atn from hypotension, creat stable with decent uo ( incompletely recorded due to incontinence). Could take weeks to return to previous b/l. 2. edema: improved but still appears somewhat volume up. Given met alk, would cont to hold lasix for now but suspect will need to resume at some point. 3. met alk: hold diuretics as above. 4. Shock: resolved, s/p abscess drainage. Plan: 06/12/17 15:30 Subjective: Feeling about the same. Incontinent per nursing. Objective: Vital Signs Temp Pulse Resp BP Pulse Ox 37.0 C 62 20 109/49 L 85 L 06/12/17 12:00 06/12/17 12:00 06/12/17 12:00 06/12/17 12:00 06/12/17 12:00 Microbiology 06/03/17 11:55 Gram Stain - Final Abdomen - Aspirate Anaerobic Culture - Final Klebsiella Pneumoniae Ssp Pneu Escherichia Coli Esbl Enterococcus Faecium 06/03/17 11:55 Mycobacterial Smear (JOYCE) - Final Abdomen - Aspirate Laboratory Results 06/11/17 04:15 06/12/17 04:43 06/11/17 06/12/17 06/13/17 05:59 05:59 05:59 Intake Total 191 430.9 250 Output Total 585 180 Balance -394 250.9 250 PT 17.1 SEC (12.0-15.0) H 06/03/17 09:55 INR 1.40 (0.83-1.16) H 06/03/17 09:55 Physical Exam - Physical Exam General Appearance: other (chronically-ill appearing) Respiratory: lungs clear (anteriorly) Cardiac/Chest: regular rate, rhythm Extremities: other (+LE/dependent edema) ICD10 Worksheet Patient Problems: Problems Problem Status Onset Abdominal pain Acute ESBL (extended spectrum beta-lactamase) producing bacteria infection Acute ~ Partial small bowel obstruction Acute
--- NOTE | 2017-06-12 18:10 | SOAPPROG ---
SOAP Progress Note Assessment/Plan: Assessment/Plan: 87-year-old gentleman status post laparoscopic lysis of adhesions with repair of enterotomy. The patient became confused postoperatively and then went into oliguric renal failure and subsequently became hypotensive. Shock ?septic responded to vasopressor medication and fluid hydration. Aspirated Intubated with normal bronchoscopy 05/27 Increased wbc over the weekend now improving post abscess drainage CT guided drainage for organ space abscess positive for Gm + fermenting jon - on Zosyn E coli EBL/Enterococcus/Klebsiella sensitive to zosyn Nye placed for bladder outlet obstruction with diuresis Abd benign. Lower midline minimal seropurulent Gelacio seropurulent less than 06/08 Blood cx negative leucocytosis 13K fluid overload better with decreasing CR post nye stable 2.4 Deep organ and superficial space infections OOB Renal u/s no obstruction ambulate/encourage IS/PO tolerating po Oral analgesics abscess study no communication with intestine - catheter removed for bleeding Anticipate d/c Wed Zosyn stopped nye out cr 2.3 06/09/17 08:01 06/11/17 15:55 06/12/17 18:09 Objective: Vital Signs Temp Pulse Resp BP Pulse Ox 36.9 C 65 16 109/59 L 93 06/12/17 16:06 06/12/17 16:06 06/12/17 16:06 06/12/17 16:06 06/12/17 16:06 Microbiology 06/03/17 11:55 Gram Stain - Final Abdomen - Aspirate Anaerobic Culture - Final Klebsiella Pneumoniae Ssp Pneu Escherichia Coli Esbl Enterococcus Faecium 06/03/17 11:55 Mycobacterial Smear (JOYCE) - Final Abdomen - Aspirate Laboratory Results 06/11/17 04:15 06/12/17 04:43 06/11/17 06/12/17 06/13/17 05:59 05:59 05:59 Intake Total 191 430.9 250 Output Total 585 180 Balance -394 250.9 250 PT 17.1 SEC (12.0-15.0) H 06/03/17 09:55 INR 1.40 (0.83-1.16) H 06/03/17 09:55 ICD10 Worksheet Patient Problems: Problems Problem Status Onset Abdominal pain Acute ESBL (extended spectrum beta-lactamase) producing bacteria infection Acute ~ Partial small bowel obstruction Acute
[2017-06-12] MEDS: traZODone 100 MG TAB PO SCH (20:21)
[2017-06-12] MEDS: DUTASTERIDE 0.5 MG CAP PO SCH (20:21)
[2017-06-12] MEDS: ATORVASTATIN CALCIUM 20 MG TAB PO SCH (20:21)
[2017-06-13] MEDS: PIPERACILLIN/TAZO 2.25 GM/DEX 50 ML IV SCH ×3 (00:01→12:14)
[2017-06-13 06:26] LABS: ANION GAP 11 mEq/L (8-16); CALCIUM 8.5 mg/dL (8.5-10.4); CARBON DIOXIDE 33 mEq/l (22-31); CHLORIDE 97 mEq/L (97-110); CREATININE 2.2 mg/dL (0.7-1.3); GLOMERULAR FILTRATION RATE 28; GLUCOSE 89 mg/dL (70-100); POTASSIUM 3.7 mEq/L (3.5-5.2); SODIUM 141 mEq/L (134-144)
[2017-06-13 07:36] VITALS: BP 132/62; PULSE 63; RESP 18; TEMP 98.4; O2SAT 93
[2017-06-13] MEDS ORDERED: POTASSIUM CL 10 MEQ TAB PO ONE (07:47)
[2017-06-13] MEDS: buPROPion 100 MG TAB PO SCH ×2 (08:25→12:14)
[2017-06-13] MEDS: APIXABAN 2.5 MG TAB PO SCH (08:25)
[2017-06-13] MEDS: ALLOPURINOL 100 MG TAB PO SCH (08:25)
[2017-06-13] MEDS: clonazePAM 0.5 MG TAB PO SCH ×2 (08:25→12:14)
[2017-06-13] MEDS: FLUTICASONE NASAL 120 SPRAYS/16 GM MDI EACHNARE SCH (08:26)
[2017-06-13] MEDS: CLOTRIMAZOLE 1% 15 GM CRTUBE TP SCH (08:27)
[2017-06-13] MEDS: TAMSULOSIN HCL 0.4 MG CAP PO SCH (08:28)
--- NOTE | 2017-06-13 10:18 | SOAPPROG ---
SOAP Progress Note Assessment/Plan: Assessment:Plan: ARF-ATN -ultrasound with normal-sized kidneys, no hydronephrosis -baseline creatinine 0.8 to 1 -creatinine 2.2 today -slow recovery -edema better -he may need more active fluid management while he is in rehab at [facility] -I have requested weekly RFP's to monitor recovery -his lytes are okay -he should be seen in Nephrology in 2 weeks -he could be seen in the [facility] [place] office at [id number] [place] which is just 12 minutes from the nursing facility [facility] Pulmonary-still on oxygen 06/13/17 10:13 Subjective: stable overnite Objective: Vital Signs Temp Pulse Resp BP Pulse Ox 36.9 C 63 18 132/62 H 93 06/13/17 07:35 06/13/17 07:35 06/13/17 07:35 06/13/17 07:35 06/13/17 07:35 Microbiology 06/03/17 11:55 Gram Stain - Final Abdomen - Aspirate Anaerobic Culture - Final Klebsiella Pneumoniae Ssp Pneu Escherichia Coli Esbl Enterococcus Faecium 06/03/17 11:55 Mycobacterial Smear (JOYCE) - Final Abdomen - Aspirate Laboratory Results 06/11/17 04:15 06/13/17 05:43 06/12/17 06/13/17 06/14/17 05:59 05:59 05:59 Intake Total 430.9 1265 Output Total 180 25 Balance 250.9 1265 -25 PT 17.1 SEC (12.0-15.0) H 06/03/17 09:55 INR 1.40 (0.83-1.16) H 06/03/17 09:55 Physical Exam - Physical Exam General Appearance: alert, no apparent distress EENT: normal ENT inspection Neck: normal inspection Respiratory: decreased breath sounds (at bases bilaterally) Cardiac/Chest: regular rate, rhythm Abdomen: normal bowel sounds, non-tender, other (small open wound as round as a pencil) Extremities: swelling (tr-1+) ICD10 Worksheet Patient Problems: Problems Problem Status Onset Abdominal pain Acute ESBL (extended spectrum beta-lactamase) producing bacteria infection Acute ~ Partial small bowel obstruction Acute
--- NOTE | 2017-06-13 10:41 | PDIAF ---
- Diagnosis Diagnosis: Small bowel obstruction, renal failure, PTSD, Neuropathy, BPH Code Status: Full Code - Medication Management Discharge Medications: Medications to Continue on Transfer traZODone [traZODONE 100MG (*)] 200 mg PO HS 11/03/12 [Last Taken 05/22/17] Dutasteride [Avodart 0.5 MG (*)] 0.5 mg PO HS 06/30/14 [Last Taken 05/22/17] Tamsulosin HCl [Flomax 0.4 MG (*)] 0.4 mg PO DAILY 06/09/16 [Last Taken 05/22/17 ] Allopurinol [Allopurinol 100 MG (*)] 100 mg PO DAILY 05/23/17 [Last Taken Unknown] Apixaban [Eliquis] 5 mg PO BID 05/23/17 [Last Taken Unknown] Asacol Ec 400mg Cap 400 mg PO TID PRN 05/23/17 [Last Taken Unknown] Clotrimazole 1% [Lotrimin 1%] 1 sultana TP BID 05/23/17 [Last Taken Unknown] Fluticasone Nasal [Flonase Nasal [place]] 2 sprays NASAL DAILY 05/23/17 [Last Taken Unknown] Psyllium Husk (with Sugar) [Metamucil Packet] 1 each PO DAILY 05/23/17 [Last Taken Unknown] Simvastatin [Zocor] 40 mg PO HS 05/23/17 [Last Taken 05/22/17] Sodium Cl Nasal [[place] (*)] 1 spray NS Q2HRS 05/23/17 [Last Taken Unknown] Vanicream [Vanicream (*)] 1 sultana TP DAILY 05/23/17 [Last Taken Unknown] clonazePAM [Klonopin (*)] 0.5 mg PO TID@,,05/23/17 [Last Taken 05/22/17 17:00] buPROPion SR [Wellbutrin 100mg SR (*)] 200 mg PO BID 05/26/17 [Last Taken ] Ipratropium/Albuterol [Duoneb (*)] 3 ml IH Q6 PRN #0 deyvial 06/13/17 [Last Taken Unknown] buPROPion [Wellbutrin 100mg (*)] 100 mg PO TID@,17 #0 tab 06/13/17 [Last Taken Unknown] traMADol [Ultram 50 mg (*)] 50 mg PO Q6HRS PRN #0 tab 06/13/17 [Last Taken Unknown] Discharge Medications: Refer to the Discharge Home Medication list for PRN reason. - Orders Services needed: Registered Nurse, Physical Therapy, Occupational Therapy Diet Recommendation: no restrictions on diet Diet Texture: Regular Texture Diet, Thin Liquids, Meds Whole w/Liquids Weigh Patient: daily - Labs/Radiology CMP Date: 06/15/17 Call or Fax Lab and Imaging Results to: [phone] (Dr Bonilla) - Follow Up Care Current Providers and Referrals: Nate Bonilla MD [Medical Doctor] - 06/19/17 2:30 am SHERRI CARBAJAL [Primary Care Provider] - As per Instructions [facility] (,. [Edm Groups for Call Sched] - follow up in 2 weeks ( [place] office)
--- NOTE | 2017-06-13 10:46 | PDDCSUM ---
Discharge Summary Discharge Summary: Date of admission: 05/24/2017 Date of discharge: 06/13/2017 Principle Dx: Small-bowel obstruction Secondary Dx: Atrial fibrillation Acute kidney injury Aspiration Intra-abdominal abscess Peripheral neuropathy Consultations: Critical Care Medicine Internal Medicine Cardiology Nephrology Procedures: Laparoscopic lysis of adhesions with repair of enterotomy Bronchoscopy Interventional radiology drainage of intra-abdominal abscess Hospital course: Shar Fernandez presented to the hospital for evaluation and management of small- bowel obstruction. Previous surgery had been done for diverticular disease in the 80s. The patient was initially treated with decompression with nasogastric tube. After 48 hours the patient did not have any improvement with increased NG tube output and no improvement with bowel function or imaging. He was taken to the operating room for laparoscopic lysis of adhesions. Postoperatively the patient had severe abdominal pain and went into acute kidney injury with hypotension. Re-distributive shock was identified he was transferred to the ICU and had cardiology evaluation. Echocardiogram and EKG did not show any acute changes. He was treated with hydration and a suppressive medication. The patient had a deterioration in his respiratory status was reintubated with bronchoscopy performed. He was subsequently extubated after fluid resuscitation his kidney function stabilized with a creatinine maximally at 3.1. At the time of discharge after internal Medicine and Nephrology consultation the patient had a creatinine of 2.2 his baseline is approximately 1. Intra-abdominal abscess was noted approximately a week and a half after his initial surgery and this was treated with interventional radiology drainage. Subsequent imaging study show collapse of the cavity. Catheter was removed. Patient was suspected to have a bladder outlet obstruction and catheterization of his bladder was performed and subsequent use of medication for BPH. The patient was able to urinate after this treatment. He is discharged to nursing/rehabilitation. He has a history of frostbite with peripheral neuropathy. He walks with a walker. He is back to his baseline cardiopulmonary status however he is debilitated. He will need continued physical therapy and occupational therapy. His diet is return to normal. His wounds are stable. He will follow up with surgery in 1 week after discharge. All antibiotics were stopped at the time of discharge. Medications to Continue on Transfer traZODone [traZODONE 100MG (*)] 200 mg PO HS 11/03/12 [Last Taken 05/22/17] Dutasteride [Avodart 0.5 MG (*)] 0.5 mg PO HS 06/30/14 [Last Taken 05/22/17] Tamsulosin HCl [Flomax 0.4 MG (*)] 0.4 mg PO DAILY 06/09/16 [Last Taken 05/22/17 ] Allopurinol [Allopurinol 100 MG (*)] 100 mg PO DAILY 05/23/17 [Last Taken Unknown] Apixaban [Eliquis] 5 mg PO BID 05/23/17 [Last Taken Unknown] Asacol Ec 400mg Cap 400 mg PO TID PRN 05/23/17 [Last Taken Unknown] Clotrimazole 1% [Lotrimin 1%] 1 sultana TP BID 05/23/17 [Last Taken Unknown] Fluticasone Nasal [Flonase Nasal [place]] 2 sprays NASAL DAILY 05/23/17 [Last Taken Unknown] Psyllium Husk (with Sugar) [Metamucil Packet] 1 each PO DAILY 05/23/17 [Last Taken Unknown] Simvastatin [Zocor] 40 mg PO HS 05/23/17 [Last Taken 05/22/17] Sodium Cl Nasal [Summers [place] (*)] 1 spray NS Q2HRS 05/23/17 [Last Taken Unknown] Vanicream [Vanicream (*)] 1 sultana TP DAILY 05/23/17 [Last Taken Unknown] clonazePAM [Klonopin (*)] 0.5 mg PO TID@,,05/23/17 [Last Taken 05/22/17 17:00] buPROPion SR [Wellbutrin 100mg SR (*)] 200 mg PO BID 05/26/17 [Last Taken ] Ipratropium/Albuterol [Duoneb (*)] 3 ml IH Q6 PRN #0 deyvial 06/13/17 [Last Taken Unknown] buPROPion [Wellbutrin 100mg (*)] 100 mg PO TID@, #0 tab 06/13/17 [Last Taken Unknown] traMADol [Ultram 50 mg (*)] 50 mg PO Q6HRS PRN #0 tab 06/13/17 [Last Taken Unknown] Discharge Medications Discharge ED Provider: Pattie Moe Status: Z Complete Time Seen by Provider: 05/23/17 05:05 Condition: Fair Triaged At: 05/23/17 04:50 Emergency Discharge Date/Time: 05/23/17 08:18 Emergency Discharge Disposition: [facility] Acute Clinical Impression Partial small bowel obstruction Abdominal pain Emergency Discharge Comment: Admit Intervention Last Done Discharge Assessment-ED 05/23/17 08:18 Query Result Associated Mechanism of Injury/Trauma No Limited/Minor Trauma Patient Surgical No Evaluation Blood Pressure 122/73 Mean Arterial Pressure (MAP) 89 Heart Rate 60 Respiratory Rate 17 O2 Sat (%) 92 O2 Delivery Mode Room Air Temperature (C) 37.3 C Temperature Source Oral Capillary Refill Less Than 2 Seconds Patient Required Critical Care During ED No Course IV Discontinued Intact Yes Site Without Redness/Swelling Yes Infusion Therapy Yes IV Infused (ml) 1,000 Blood Products Given No Inpatient Discharge Date/Time: 06/13/17 14:14 [facility]patient [facility] Discharge Comment: Observation Discharge Date/Time: Observation Discharge Disposition: Observation Discharge Comment: Instructions: [facility] Patient Education, Infection Prevention Central Line Associated Bloodstream Infection (DC) Central Line Associated Bloodstream Infection (GEN) Prescriptions: traMADol [Ultram 50 mg (*)] Nate Bonilla buPROPion [Wellbutrin 100mg (*)] Nate Bonilla Ipratropium/Albuterol [Duoneb (*)] Nate Bonilla
[2017-06-13] MEDS: VANICREAM CREAM TP SCH (13:19)
--- NOTE | 2017-06-13 15:46 | HOSPPROG ---
Hospitalist Progress Note Assessment/Plan: DIAGNOSES: SBO s/p SOMMER; abscess drained -zosyn (day 10) -is eating better now, moving bowels Severe deconditioning, weakness, gait instability Left hip pain, uncertain etiology, appears to be interfering with physical therapy and mobility better today, no sign of fracture Anorexia, protein calorie malnutrition Acute respiratory failure - now extubated with Aspiration PNA and septic shock ( resolved) ARF - likely ATN due to sepsis/hypotension -creatinine stable Volume overload - decreased scrotal edema as above; lasix now po daily Troponin bump - demand ischemia due to sepsis -no further work-up per cards Afib/PCM -Eliquis at reduced dose due to renal function LAKESHA - CPAP Increased LFT - likely due to sepsis (resolved) PLANS: I agree he is stable for discharge to [facility] at this time SUBJECTIVE: again main complaint is weakness. He has less pain in the left hip area today Again eating a little bit better today OBJECTIVE: Vitals stable no fever Exam: alert, seems oriented looks very weak skin warm dry color ok resps easy lungs clear today abd soft nondistended, wounds look ok, nontender less edema of legs labs reviewed: Renal function unchanged creatinine 2.3 Hip x-ray from June 12, I reviewed the images myself my interpretation: No evidence of fracture or other acute skeletal abnormality Objective: Vital Signs Temp Pulse Resp BP Pulse Ox 36.9 C 63 18 132/62 H 93 06/13/17 07:35 06/13/17 07:35 06/13/17 07:35 06/13/17 07:35 06/13/17 07:35 Microbiology 06/03/17 11:55 Gram Stain - Final Abdomen - Aspirate Anaerobic Culture - Final Klebsiella Pneumoniae Ssp Pneu Escherichia Coli Esbl Enterococcus Faecium 06/03/17 11:55 Mycobacterial Smear (JOYCE) - Final Abdomen - Aspirate Laboratory Results 06/11/17 04:15 06/13/17 05:43 06/12/17 06/13/17 06/14/17 06:59 06:59 06:59 Intake Total 680.9 1015 Output Total 180 25 Balance 500.9 1015 -25 PT 17.1 SEC (12.0-15.0) H 06/03/17 09:55 INR 1.40 (0.83-1.16) H 07/16/17 09:55 ICD10 Worksheet Patient Problems: Problems Problem Status Onset Abdominal pain Acute ESBL (extended spectrum beta-lactamase) producing bacteria infection Acute ~ Partial small bowel obstruction Acute
== END 2017-06-13 14:14 | DRG 329 ==
LOC: F3E 08:24 → OBSVTOIN 05-24 14:10 → F2W 05-25 18:21 → F2N 05-26 11:20 → F3E 05-31 18:11
PROVIDERS: ADMIT Surgery; ATTEND Surgery
PROC: 0D9670Z Drainage of Stomach with Drainage Device, Via Natural or Artificial Opening (ICD-10-PCS; 2017-05-23)
PROC: 0DN88ZZ Release Small Intestine, Via Natural or Artificial Opening Endoscopic (ICD-10-PCS; principal; 2017-05-25 13:00)
PROC: 0DQ80ZZ Repair Small Intestine, Open Approach (ICD-10-PCS; principal; 2017-05-25 13:00)
PROC: 02HV33Z Insertion of Infusion Device into Superior Vena Cava, Percutaneous Approach (ICD-10-PCS; 2017-05-26)
PROC: 0BJ08ZZ Inspection of Tracheobronchial Tree, Via Natural or Artificial Opening Endoscopic (ICD-10-PCS; 2017-05-27)
PROC: 5A1945Z Respiratory Ventilation, 24-96 Consecutive Hours (ICD-10-PCS; 2017-05-27)
PROC: 0BH17EZ Insertion of Endotracheal Airway into Trachea, Via Natural or Artificial Opening (ICD-10-PCS; 2017-05-27)
PROC: 0W9G30Z Drainage of Peritoneal Cavity with Drainage Device, Percutaneous Approach (ICD-10-PCS; 2017-06-03)
DX: K56.5 Intestinal adhesions [bands] with obstruction (postinfection) (principal); A41.9 Sepsis, unspecified organism; R65.21 Severe sepsis with septic shock; J69.0 Pneumonitis due to inhalation of food and vomit; J96.01 Acute respiratory failure with hypoxia; N17.0 Acute kidney failure with tubular necrosis; I44.2 Atrioventricular block, complete; E87.0 Hyperosmolality and hypernatremia; T81.4XXA Infection following a procedure, initial encounter; B96.20 Unspecified Escherichia coli [E. coli] as the cause of diseases classified elsewhere; B96.1 Klebsiella pneumoniae [K. pneumoniae] as the cause of diseases classified elsewhere; E46 Unspecified protein-calorie malnutrition; I11.0 Hypertensive heart disease with heart failure; E78.5 Hyperlipidemia, unspecified; K57.90 Diverticulosis of intestine, part unspecified, without perforation or abscess without bleeding; I48.0 Paroxysmal atrial fibrillation; M10.9 Gout, unspecified; I50.9 Heart failure, unspecified; E04.9 Nontoxic goiter, unspecified; G47.33 Obstructive sleep apnea (adult) (pediatric); R60.1 Generalized edema; N50.89 Other specified disorders of the male genital organs; Z95.0 Presence of cardiac pacemaker; N32.0 Bladder-neck obstruction; E87.6 Hypokalemia; R53.1 Weakness; R26.81 Unsteadiness on feet; L89.159 Pressure ulcer of sacral region, unspecified stage; M25.552 Pain in left hip; G62.9 Polyneuropathy, unspecified
CPT/HCPCS: 82947-QW; 86334-90; 92526-GN; 92610-GN; 96374; 97110-GP; 97116-GP; 97161-GP; 97164-GP; 97166-GO; 97168-GO; 97530-GO; 97530-GP; 97535-GO; C1751; G0378; G8978-GP-CI; G8978-GP-CM; G8979-GP-CI; G8979-GP-CJ; G8979-GP-CL; G8987-GO-CK; G8987-GO-CL; G8988-GO-CI; G8988-GO-CK; G8996-GN-CH; G8996-GN-CI; G8997-GN-CH; G8997-GN-CI; G8998-GN-CH; J1100; J1170; J1650; J1940; J2250; J2310; J2405; J2543; J2704; J2997; J3010; J3370; P9041; P9047; Q9967